=== PATIENT | female | born 1965 | race Caucasian/White ===

== ENCOUNTER 2019-03-21 15:10 | Inpatient (IN) | payer MEDICAID, SELFPAY ==
[~2019-03-21] VITALS: Ht 162.6 cm; Wt 106.3 kg
[2019-03-21] MEDS ORDERED: IV NORMAL SALINE 1000ML BAG 1,000 ML IV SCH ×2 (15:14→17:00)
[2019-03-21] MEDS ORDERED: fentaNYL PF VIAL 100 MCG/2 ML VIAL IV ONE (15:30)
[2019-03-21] MEDS ORDERED: ONDANSETRON PF 4 MG/2 ML VIAL. IV ONE (15:30)
[2019-03-21 15:39] LABS: BASO # 0.1 x10^3/uL (0.0-0.2); BASO % 1 % (0-3); EOS # 0.2 x10^3/uL (0.0-0.7); EOS % 3 % (0-3); HEMOGLOBIN 12.1 g/dL (12.0-15.5); LYMPH # 1.7 x10^3/uL (1.0-4.8); LYMPH % 23 % (24-48); MEAN CORPUSCULAR HEMOGLOBIN 29 pg (25-35); MEAN CORPUSCULAR HGB CONC 33 g/dL (31-37); MEAN CORPUSCULAR VOLUME 90 fL (79-100); MONO # 0.8 x10^3/uL (0.0-1.1); MONO % 11 % (0-9); NEUT # 4.6 x10^3uL (1.8-7.7); NEUT % 62 % (31-73); PLATELET COUNT 265 x10^3/uL (140-400); RED BLOOD COUNT 4.13 x10^6/uL (3.50-5.40); RED CELL DISTRIBUTION WIDTH 15.1 % (11.5-14.5); WHITE BLOOD COUNT 7.5 x10^3/uL (4.0-11.0)
[2019-03-21 15:50] LABS: CREATININE 1.1 mg/dL (0.6-1.0); GFR 52.4; POTASSIUM 4.2 mmol/L (3.5-5.1)
[2019-03-21 15:53] LABS: ALBUMIN 2.9 g/dL (3.4-5.0); ALBUMIN/GLOBULIN RATIO 0.7 (1.0-1.7); TOTAL BILIRUBIN 0.2 mg/dL (0.2-1.0); TOTAL PROTEIN 7.1 g/dL (6.4-8.2)
--- NOTE | 2019-03-21 16:31 | RAD ---
EXAM: Abdomen and pelvis CT without intravenous contrast. HISTORY: Right lower quadrant pain. TECHNIQUE: Computed tomographic images of the abdomen and pelvis were obtained without contrast. Multiplanar reformatting was performed. *One or more of the following individualized dose reduction techniques were utilized for this examination: 1. Automated exposure control. 2. Adjustment of the mA and/or kV according to patient size. 3. Use of iterative reconstruction technique. COMPARISON: None. FINDINGS: Evaluation of the lower thorax demonstrates a calcified granuloma within the posterior left lower lobe. There is no infiltrate or pleural effusion. There is hepatomegaly and hepatic steatosis. No focal hepatic lesion is seen. The gallbladder, pancreas, spleen and adrenal glands are unremarkable. The kidneys are unremarkable. The appendix is surgically absent. There are few sigmoid diverticula. There is slight fatty stranding surrounding a diverticulum within the proximal sigmoid colon, best seen on coronal images (series 4, images 34 through 36). This suggests slight diverticulitis. There are few nonspecific retroperitoneal and mesenteric lymph nodes. These are not pathologically enlarged. There is aortobiiliac atherosclerosis. There is no aneurysm. The urinary bladder, uterus and adnexal regions are unremarkable. There is no suspicious osseous lesion. IMPRESSION: 1. Minimal fatty stranding surrounding a diverticulum within the proximal sigmoid colon, suggesting slight diverticulitis. This is superimposed on distal colonic diverticulosis. 2. Hepatomegaly and hepatic steatosis. 3. Sigmoid diverticulosis. Electronically signed by: Lexy Gray MD (03/21/2019 4:28 PM) [facility]
[2019-03-21 16:58] LABS: BILIRUBIN,URINE NEGATIVE (NEG); CLARITY,URINE CLEAR; COLOR,URINE YELLOW; NITRITE,URINE NEGATIVE (NEG); PH,URINE 6.5; PROTEIN,URINE NEGATIVE (NEG-TRACE); UROBILINOGEN,URINE 0.2 mg/dL (0.2 mg/dL)
[2019-03-21 17:06] LABS: BACTERIA,URINE FEW /HPF (0-FEW); SQUAMOUS EPITHELIAL CELL,UR MOD /LPF; WBC,URINE 0 /HPF (0-4)
--- NOTE | 2019-03-21 17:27 | PHYS DOC ---
Past Medical History Past Medical History: Anemia, Bipolar, Diabetes-Type II, High Cholesterol, Hypertension, Hypothyroid, Schizophrenia, Other Additional Past Medical Histor: LOW/UP GI BLEED,BORDERLINE PERSONALITY,PTSD,ACUTE RESP FAIL Past Surgical History: Tubal ligation Alcohol Use: None Drug Use: None Adult General Chief Complaint Chief Complaint: ABDOMINAL PAIN HPI HPI Patient is a 53 year old female resident of [facility] who was in by EMS because of abdominal pain and possible appendicitis. Patient has extensive psychiatric problem and states she has had right lower abdominal pain for 4 days as a constant sharp pain with 7 or 8 episodes of nonbloody diarrhea and multiple episodes of vomiting. Patient rated her pain 10 over 10 and denies fever and chills, urinary symptoms, history of the same pain. Patient complaining of anorexia. intermediate reported that patient complaining of abdominal pain for 2 days and did not reports nausea and vomiting and diarrhea. Review of Systems Review of Systems Constitutional: Denies fever or chills [] Eyes: Denies change in visual acuity, redness, or eye pain [] HENT: Denies nasal congestion or sore throat [] Respiratory: Denies cough or shortness of breath [] Cardiovascular: No additional information not addressed in HPI [] GI: Reports abdominal pain, nausea, vomiting, diarrhea [] : Denies dysuria or hematuria [] Musculoskeletal: Denies back pain or joint pain [] Integument: Denies rash or skin lesions [] Neurologic: Denies headache, focal weakness or sensory changes [] Endocrine: Denies polyuria or polydipsia [] All other systems were reviewed and found to be within normal limits, except as documented in this note. Current Medications Current Medications Current Medications Medications (Trade) Dose Ordered Sig/Mickie Start Time Stop Time Status Last Admin Dose Admin Fentanyl Citrate (Fentanyl 2ml Vial) 50 mcg 1X ONCE 03/21/19 15:30 03/21/19 15:58 DC 03/21/19 16:04 50 MCG Ondansetron HCl (Zofran) 4 mg 1X ONCE 03/21/19 15:30 03/21/19 15:58 DC 03/21/19 16:05 4 MG Sodium Chloride 1,000 ml @ 1,000 mls/hr Q1H 03/21/19 15:14 03/21/19 16:13 DC 03/21/19 16:04 1,000 MLS/HR Allergies Allergies Allergies Coded Allergies Type Severity Reaction Last Updated Verified Penicillins Allergy Severe Anaphylaxis 03/21/19 Yes gabapentin Allergy Intermediate Hives 03/21/19 Yes tuberculin,PPD,multi-puncture Allergy Unknown 03/21/19 Yes Physical Exam Physical Exam Constitutional: Well nourished, moderate distress, non-toxic appearance, morbidly obese. [] HENT: Normocephalic, atraumatic, oropharynx moist. Eyes: PERRLA, EOMI, conjunctiva normal, no discharge. [] Neck: Normal range of motion, no tenderness, supple, no stridor. [] Cardiovascular:Heart rate regular rhythm, no murmur [] Lungs & Thorax: Bilateral breath sounds clear to auscultation [] Abdomen: Bowel sounds hyperactive, abdomen mildly distended with gas,, soft, tenderness and rebound tenderness in right lower quadrant, no masses, no pulsatile masses. [] Skin: Warm, dry, no erythema, no rash. [] Back: No tenderness, no CVA tenderness. [] Extremities: No tenderness, no cyanosis, no clubbing, ROM intact, no edema. [] Neurologic: Alert and oriented X 3, normal motor function, normal sensory function, no focal deficits noted. [] Psychologic: Affect anxious. Current Patient Data Vital Signs Vital Signs Date Time Temp Pulse Resp B/P (MAP) Pulse Ox O2 Delivery O2 Flow Rate FiO2 03/21/19 16:04 16 Room Air 03/21/19 15:10 98.4 81 117/68 (84) 95 98.4 Lab Values Laboratory Tests Test 03/21/19 15:32 White Blood Count 7.5 x10^3/uL (4.0-11.0) Red Blood Count 4.13 x10^6/uL (3.50-5.40) Hemoglobin 12.1 g/dL (12.0-15.5) Hematocrit 37.0 % (36.0-47.0) Mean Corpuscular Volume 90 fL (79-100) Mean Corpuscular Hemoglobin 29 pg (25-35) Mean Corpuscular Hemoglobin Concent 33 g/dL (31-37) Red Cell Distribution Width 15.1 % (11.5-14.5) H Platelet Count 265 x10^3/uL (140-400) Neutrophils (%) (Auto) 62 % (31-73) Lymphocytes (%) (Auto) 23 % (24-48) L Monocytes (%) (Auto) 11 % (0-9) H Eosinophils (%) (Auto) 3 % (0-3) Basophils (%) (Auto) 1 % (0-3) Neutrophils # (Auto) 4.6 x10^3uL (1.8-7.7) Lymphocytes # (Auto) 1.7 x10^3/uL (1.0-4.8) Monocytes # (Auto) 0.8 x10^3/uL (0.0-1.1) Eosinophils # (Auto) 0.2 x10^3/uL (0.0-0.7) Basophils # (Auto) 0.1 x10^3/uL (0.0-0.2) Sodium Level 141 mmol/L (136-145) Potassium Level 4.2 mmol/L (3.5-5.1) Chloride Level 104 mmol/L (98-107) Carbon Dioxide Level 29 mmol/L (21-32) Anion Gap 8 (6-14) Blood Urea Nitrogen 17 mg/dL (7-20) Creatinine 1.1 mg/dL (0.6-1.0) H Estimated GFR (Cockcroft-Gault) 52.4 BUN/Creatinine Ratio 15 (6-20) Glucose Level 161 mg/dL (70-99) H Calcium Level 9.0 mg/dL (8.5-10.1) Total Bilirubin 0.2 mg/dL (0.2-1.0) Aspartate Amino Transferase (AST) 21 U/L (15-37) Alanine Aminotransferase (ALT) 29 U/L (14-59) Alkaline Phosphatase 92 U/L (46-116) Total Protein 7.1 g/dL (6.4-8.2) Albumin 2.9 g/dL (3.4-5.0) L Albumin/Globulin Ratio 0.7 (1.0-1.7) L Lipase 205 U/L (73-393) Laboratory Tests 03/21/19 15:32 Laboratory Tests 03/21/19 15:32 EKG EKG [] Radiology/Procedures Radiology/Procedures [facility] [address] [place] [address] IMAGING REPORT Signed PATIENT: JOSE THOMPSON ACCOUNT: [id number] : 1965 LOCATION: ER AGE: 53 SEX: F EXAM STATUS: PRE ER ORD. PHYSICIAN: VIOLETTE SAXENA MD REASON: right lower quadrant pain PROCEDURE: CT ABDOMEN PELVIS WO CONTRAST EXAM: Abdomen and pelvis CT without intravenous contrast. HISTORY: Right lower quadrant pain. TECHNIQUE: Computed tomographic images of the abdomen and pelvis were obtained without contrast. Multiplanar reformatting was performed. *One or more of the following individualized dose reduction techniques were utilized for this examination: 1. Automated exposure control. 2. Adjustment of the mA and/or kV according to patient size. 3. Use of iterative reconstruction technique. COMPARISON: None. FINDINGS: Evaluation of the lower thorax demonstrates a calcified granuloma within the posterior left lower lobe. There is no infiltrate or pleural effusion. There is hepatomegaly and hepatic steatosis. No focal hepatic lesion is seen. The gallbladder, pancreas, spleen and adrenal glands are unremarkable. The kidneys are unremarkable. The appendix is surgically absent. There are few sigmoid diverticula. There is slight fatty stranding surrounding a diverticulum within the proximal sigmoid colon, best seen on coronal images (series 4, images 34 through 36). This suggests slight diverticulitis. There are few nonspecific retroperitoneal and mesenteric lymph nodes. These are not pathologically enlarged. There is aortobiiliac atherosclerosis. There is no aneurysm. The urinary bladder, uterus and adnexal regions are unremarkable. There is no suspicious osseous lesion. IMPRESSION: 1. Minimal fatty stranding surrounding a diverticulum within the proximal sigmoid colon, suggesting slight diverticulitis. This is superimposed on distal colonic diverticulosis. 2. Hepatomegaly and hepatic steatosis. 3. Sigmoid diverticulosis. Electronically signed by: Lexy Collins MD (03/21/2019 4:28 PM) [facility] DICTATED and SIGNED BY: LEXY COLLINS MD DATE: 03/21/19 1628 Course & Med Decision Making Course & Med Decision Making Pertinent Labs and Imaging studies reviewed. (See chart for details) Evaluation of patient in ER showed 53-year-old female patient with history of abdominal pain and nausea and vomiting for several days with right lower quadrant tenderness and rebound tenderness. Patient was afebrile and had stable vital signs in ER. Patient had unremarkable labs. CT of abdomen and pelvis showed right diverticulitis. IV Levaquin and flu she was given. Patient requiring admission for further evaluation and treatment. Discussed with Dr. Nichols who is in agreement with admission. Discussed findings and plan with patient and family, who acknowledge understanding and agreement. Dragon Disclaimer Dragon Disclaimer This electronic medical record was generated, in whole or in part, using a voice recognition dictation system. Departure Departure Impression: Primary Impression: Diverticulitis large intestine Additional Impressions: Abdominal pain Morbid obesity with BMI of 40.0-44.9, adult Diabetes mellitus History of bipolar disorder Disposition: ADMITTED INPATIENT (at 1640) Admitting Physician: Ashley Nichols (accepted admission at 1639) Condition: IMPROVED Referrals: ASHLEY NICHOLS MD (PCP) Problem Qualifiers Primary Impression: Diverticulitis large intestine Diverticulitis bleeding: without bleeding Diverticulitis complication: without perforation or abscess Qualified Codes: K57.32 - Diverticulitis of large intestine without perforation or abscess without bleeding Additional Impressions: Abdominal pain Abdominal location: right lower quadrant Qualified Codes: R10.31 - Right lower quadrant pain Diabetes mellitus Diabetes mellitus type: other specified (including MILAGRO) Diabetes mellitus halfway insulin use: unspecified halfway insulin use status Diabetes mellitus complication status: with unspecified complications Qualified Codes: E13.8 - Other specified diabetes mellitus with unspecified complications VIOLETTE SAXENA MD March 21, 2019 17:27
[2019-03-21 18:00] VITALS: BP 139/63
--- NOTE | 2019-03-21 18:00 | NUR ---
This patient arrived to the unit via gurney, was able to assist to the new bed, call light within reach, oriented to the room, this nurse will continue to monitor.
[2019-03-21 19:15] VITALS: BP 129/45
[2019-03-21] MEDS: fentaNYL PF VIAL 100 MCG/2 ML VIAL IV PRN (19:41)
[2019-03-21] MEDS ORDERED: DEXTROSE 50% 25 GM / 50ML DISP.SYRIN. IV PRN (20:00)
[2019-03-21] MEDS: ONDANSETRON PF 4 MG/2 ML VIAL. IV PRN (20:18)
[2019-03-21] MEDS: IV DEXTROSE 5 %-0.45 % NACL 1,000 ML IV SCH (20:20)
[2019-03-21 23:05] VITALS: BP 137/73
[2019-03-22 03:17] VITALS: BP 126/62
[2019-03-22] MEDS: fentaNYL PF VIAL 100 MCG/2 ML VIAL IV PRN ×4 (03:55→19:28)
--- NOTE | 2019-03-22 06:01 | NUR ---
Patient is a bad historian and mentally challenged. RN completed head to toe assessment and admission questions to the best of the patients ability.
[2019-03-22] MEDS: IV DEXTROSE 5 %-0.45 % NACL 1,000 ML IV SCH ×2 (06:35→17:07)
[2019-03-22 06:53] LABS: BASO % 1 % (0-3); EOS # 0.2 x10^3/uL (0.0-0.7); EOS % 2 % (0-3); HEMATOCRIT 38.4 % (36.0-47.0); HEMOGLOBIN 12.9 g/dL (12.0-15.5); LYMPH # 1.8 x10^3/uL (1.0-4.8); LYMPH % 27 % (24-48); MEAN CORPUSCULAR HEMOGLOBIN 30 pg (25-35); MEAN CORPUSCULAR HGB CONC 34 g/dL (31-37); MEAN CORPUSCULAR VOLUME 90 fL (79-100); MONO # 0.7 x10^3/uL (0.0-1.1); MONO % 10 % (0-9); NEUT # 4.1 x10^3uL (1.8-7.7); NEUT % 60 % (31-73); PLATELET COUNT 267 x10^3/uL (140-400); RED BLOOD COUNT 4.29 x10^6/uL (3.50-5.40); RED CELL DISTRIBUTION WIDTH 15.4 % (11.5-14.5); WHITE BLOOD COUNT 6.8 x10^3/uL (4.0-11.0)
[2019-03-22 07:00] VITALS: BP 150/74
[2019-03-22 07:03] LABS: CALCIUM 9.6 mg/dL (8.5-10.1); GFR 58.5; POTASSIUM 5.1 mmol/L (3.5-5.1)
[2019-03-22] MEDS: INSULIN LISPRO 300 UNITS/3 ML INSULN.PEN. SQ SCH ×3 (08:00→17:12)
[2019-03-22] MEDS ORDERED: MELA3TAB2 PO ×2 (08:17→08:21)
[2019-03-22] MEDS ORDERED: OLAN5TAB9 PO (08:23)
[2019-03-22] MEDS ORDERED: PRAZ1CAP2 PO (08:26)
[2019-03-22] MEDS ORDERED: INSU100I17 SQ (08:29)
[2019-03-22] MEDS ORDERED: ACET500T68 PO ×2 (08:36→08:40)
[2019-03-22] MEDS ORDERED: IPRA3AMP29 NEB (08:47)
[2019-03-22] MEDS ORDERED: ASPI-171 PO (08:54)
[2019-03-22] MEDS ORDERED: ATOR20TA PO (08:56)
[2019-03-22] MEDS ORDERED: CALC400T40 PO (09:00)
[2019-03-22] MEDS ORDERED: CITA20TA9 PO (09:02)
[2019-03-22] MEDS ORDERED: DOCU100C28 PO (09:11)
[2019-03-22] MEDS ORDERED: IBUP-1007 PO (09:14)
[2019-03-22] MEDS ORDERED: INSU100I13 SQ ×2 (09:17→09:23)
[2019-03-22] MEDS: ONDANSETRON PF 4 MG/2 ML VIAL. IV PRN ×2 (09:20→23:23)
[2019-03-22] MEDS ORDERED: LEVO112T4 PO (09:25)
[2019-03-22] MEDS ORDERED: LISI-334 PO (09:27)
--- NOTE | 2019-03-22 09:28 | HP ---
ADMIT DATE: 03/21/2019 HISTORY OF PRESENT ILLNESS: The patient is a 53-year-old female patient whom I have seen yesterday at [facility] in [place]. She was complaining of recurrent bouts of nausea, vomiting and abdominal pain, mostly in the right lower quadrant, and therefore, the patient was transferred to [facility] for further evaluation for possible acute appendicitis. Her lab work showed a normal white cell count 7500, and her CT scan of the abdomen and pelvis showed that the appendix is surgically absent and there are few sigmoid diverticula. There is slight fatty stranding surrounding a diverticulum within the proximal sigmoid colon, best seen in one of the coronal images suggesting slight diverticulitis, there are few nonspecific retroperitoneal and mesenteric lymph nodes, and these are not pathologically enlarged. There is no aneurysm in the urinary bladder or uterus. Adnexa region unremarkable. The patient was admitted with acute diverticulitis, was started on IV fluid, IV antibiotic, pain management and kept n.p.o. PAST MEDICAL HISTORY: Significant for type 2 diabetes, hypertension, hypothyroidism, and hyperlipidemia. She has history of lower GI bleed and blood loss anemia, tobacco abuse, borderline personality, schizophrenia, bipolar disorder, and posttraumatic stress disorder. PAST SURGICAL HISTORY: Significant for multiple C-sections. Apparently, also her appendix was removed. ALLERGIES: She is allergic to GABAPENTIN, APLISOL AND PENICILLIN. MEDICATIONS: We have entered the ____ to her medications. FAMILY HISTORY: Unremarkable, has 1 older sister who is her DPOA. SOCIAL HISTORY: She used to live alone. She is on disability. She smokes 1 pack a day, does not drink alcohol or use any recreational drugs. She has, according to her, 4 sons. REVIEW OF SYSTEMS: The patient denied any blurring of vision, cataract, glaucoma or macular degeneration. Denied any earache, tinnitus or sensorineural deafness. Denied any nosebleeds, stuffy nose or postnasal drip. Denied any sore throat, sore tongue, toothache, hoarseness of voice or difficulty swallowing. Did complain of recurrent bouts of nausea, vomiting as well as abdominal pain. Denied any diarrhea or constipation. She denied any hematemesis, melena or hematochezia. Denied any dysuria, frequency or hematuria. Denied any chest pain, shortness of breath, orthopnea, paroxysmal nocturnal dyspnea. PHYSICAL EXAMINATION: GENERAL: On arrival, she looked well and was clearly in no apparent respiratory distress, somewhat pale, but no jaundice, cyanosis, or thyromegaly. No jugular venous distension. No limb edema. VITAL SIGNS: Her heart rate was 81, blood pressure was 117/68, temperature was 98.4, respiratory rate was 16, and oxygen saturation was 95% on room air. HEAD, EYES, EARS, NOSE AND THROAT: Normocephalic, atraumatic. NECK: Supple. HEART: Showed normal first and second sounds. No gallop, rub or murmur. CHEST: Clear to auscultation. No crepitation or rhonchi. ABDOMEN: Distended, soft with tenderness, mostly in the right lower quadrant. I could not appreciate any guarding or rigidity. No organomegaly. Her hernial orifice is intact. Bowel sounds normal. NEUROLOGIC: She is awake, alert, responding appropriately. Cranial nerves are intact. EXTREMITIES: She moves extremities without difficulty. She ambulates without assistance or assistive devices. LABORATORY DATA: On arrival showed a white cell count 7500, hemoglobin 12, hematocrit 37, MCV 90 and platelet count 265,000. Her chemistry showed a serum sodium 141, potassium 4.2, chloride 104, bicarbonate 29, anion gap 8, and BUN 17. Creatinine was 1.1. Estimated GFR was 52 mL per minute. Her glucose 161, her calcium was 9. Total bilirubin, AST, ALT, alkaline phosphatase were normal. Total protein is 7.1, albumin 2.9. Serum lipase was 205. Her urinalysis showed the urine was yellow, clear with a pH of 6.5, specific gravity of 1.010. The urine was negative for protein, glucose, ketones, blood, nitrites and leukocyte esterase. There are 3-5 rbc's, no wbc's, and very few bacteria. CT scan of the abdomen and pelvis showed that the lower thorax demonstrated a calcified granuloma within the posterior left lower lobe. There is no infiltrate or pleural effusion. There is hepatomegaly and hepatic steatosis. No focal hepatic lesions are seen. The gallbladder, pancreas, spleen and adrenal glands are unremarkable. The kidneys are unremarkable. The appendix is surgically absent. There are few sigmoid diverticula. There is slight fatty stranding surrounding a diverticulum within the proximal sigmoid colon, this is a slight diverticulitis. There are few nonspecific retroperitoneal and mesenteric lymph nodes. These are not pathologically enlarged. There is aortoiliac atherosclerosis. There is no aneurysm. The urinary bladder, uterus and adnexal regions are unremarkable. There is no suspicious osseous lesion. IMPRESSION: In summary, this is a 53-year-old was admitted with recurrent bouts of nausea, vomiting and right lower quadrant pain, and apparently the appendix is surgically absent. She has diverticulitis for which she was started on IV Flagyl and Levaquin. She has a multitude of other medical problems including type 2 diabetes, hypertension, hypothyroidism, and hyperlipidemia. She has history of lower GI bleed as well as blood loss anemia. PLAN: My plan is to continue with IV fluid and IV antibiotic. I will monitor her blood sugar and adjust her insulin as needed. We will monitor her response and if she has no further episodes of nausea or vomiting, we will start her on clear liquid diet and advance her diet as needed. ADDI ABREU MD DR: EDU/sundar JOB#: [id number] / [id number]
[2019-03-22] MEDS ORDERED: MAGN400T3 PO (09:30)
[2019-03-22] MEDS ORDERED: MENT5LOZ MM (09:31)
[2019-03-22] MEDS ORDERED: METF10007 PO (09:35)
[2019-03-22] MEDS ORDERED: PANT20TA2 PO (09:37)
[2019-03-22] MEDS ORDERED: SITA100T PO (09:38)
[2019-03-22] MEDS ORDERED: DIVA500T17 PO ×2 (09:53→09:56)
[2019-03-22] MEDS ORDERED: ZIPR80CA2 PO ×2 (10:00→10:01)
--- NOTE | 2019-03-22 10:53 | NUR ---
DOUG following for discharge planning. Discussed with RN, pt is from [facility] in [facility]. Pt currently on IV abx, significant mental health hx. Eventually pt diet will be advanced. SW to fax updates to [facility] when more notes are available. DOUG will continue to follow.
[2019-03-22 11:00] VITALS: BP 136/79
--- NOTE | 2019-03-22 12:27 | PDOC2 ---
GI CONSULT Reason For Consult: RLQ pain with absent appendix HPI: HPI: 53 y/o female who reports 3 days of RLQ pain that is constant and sharp. "Eating takes the edge off." Reports vomiting after drinking pop this morning, denies diarrhea and constipation. Denies reflux/heartburn, dysphagia, chronic n/v and abd pain. Might have seen blood in emesis 3 days ago ("red and black") but not since. No melena. Describes streaks of blood on toilet tissue - "they gave me a cream for hemorrhoids." Some question of h/o GI bleeds - she denies to me and denies previous EGD or colonoscopy. Denies GB, liver, pancreas, and PUD history. No NSAIDs. Reviewed w/ RN - h/o psych issues, poor historian. Mostly dry-heaving this morning. No diarrhea. PMH: PMH: HTN, DM, HLD, schizophrenia, bipolar, PTSD tubal ligation (denies and appendectomy) FH: Family History: No pertinent hx Social History: Smoke: No ALCOHOL: none Drugs: None ROS: GEN: Denies fevers, chills, sweats HEENT: Denies blurred vision, sore throat CV: Denies chest pain RESP: Denies shortness of air, cough GI: Per HPI : Denies hematuria, dysuria ENDO: Denies weight changes NEURO: Denies confusion, dizziness MSK: Denies weakness, joint pain/swelling SKIN: Denies jaundice, pruritus Vitals: Vitals: Vital Signs Date Time Temp Pulse Resp B/P (MAP) Pulse Ox O2 Delivery O2 Flow Rate FiO2 03/22/19 11:00 97.5 61 18 136/79 (98) 90 Nasal Cannula 2.0 97.5 Labs: Labs: Laboratory Tests Test 03/21/19 15:32 03/21/19 16:49 03/21/19 20:05 03/22/19 00:40 White Blood Count 7.5 x10^3/uL (4.0-11.0) Red Blood Count 4.13 x10^6/uL (3.50-5.40) Hemoglobin 12.1 g/dL (12.0-15.5) Hematocrit 37.0 % (36.0-47.0) Mean Corpuscular Volume 90 fL (79-100) Mean Corpuscular Hemoglobin 29 pg (25-35) Mean Corpuscular Hemoglobin Concent 33 g/dL (31-37) Red Cell Distribution Width 15.1 % (11.5-14.5) Platelet Count 265 x10^3/uL (140-400) Neutrophils (%) (Auto) 62 % (31-73) Lymphocytes (%) (Auto) 23 % (24-48) Monocytes (%) (Auto) 11 % (0-9) Eosinophils (%) (Auto) 3 % (0-3) Basophils (%) (Auto) 1 % (0-3) Neutrophils # (Auto) 4.6 x10^3uL (1.8-7.7) Lymphocytes # (Auto) 1.7 x10^3/uL (1.0-4.8) Monocytes # (Auto) 0.8 x10^3/uL (0.0-1.1) Eosinophils # (Auto) 0.2 x10^3/uL (0.0-0.7) Basophils # (Auto) 0.1 x10^3/uL (0.0-0.2) Sodium Level 141 mmol/L (136-145) Potassium Level 4.2 mmol/L (3.5-5.1) Chloride Level 104 mmol/L (98-107) Carbon Dioxide Level 29 mmol/L (21-32) Anion Gap 8 (6-14) Blood Urea Nitrogen 17 mg/dL (7-20) Creatinine 1.1 mg/dL (0.6-1.0) Estimated GFR (Cockcroft-Gault) 52.4 BUN/Creatinine Ratio 15 (6-20) Glucose Level 161 mg/dL (70-99) Calcium Level 9.0 mg/dL (8.5-10.1) Total Bilirubin 0.2 mg/dL (0.2-1.0) Aspartate Amino Transf (AST/SGOT) 21 U/L (15-37) Alanine Aminotransferase (ALT/SGPT) 29 U/L (14-59) Alkaline Phosphatase 92 U/L (46-116) Total Protein 7.1 g/dL (6.4-8.2) Albumin 2.9 g/dL (3.4-5.0) Albumin/Globulin Ratio 0.7 (1.0-1.7) Lipase 205 U/L (73-393) Urine Collection Type Void Urine Color Yellow Urine Clarity Clear Urine pH 6.5 Urine Specific [place] 1.010 Urine Protein Negative mg/dL (NEG-TRACE) Urine Glucose (UA) Negative mg/dL (NEG) Urine Ketones (Stick) Negative mg/dL (NEG) Urine Blood Negative (NEG) Urine Nitrite Negative (NEG) Urine Bilirubin Negative (NEG) Urine Urobilinogen Dipstick 0.2 mg/dL (0.2 mg/dL) Urine Leukocyte Esterase Negative (NEG) Urine RBC 3-5 /HPF (0-2) Urine WBC 0 /HPF (0-4) Urine Squamous Epithelial Cells Mod /LPF Urine Bacteria Few /HPF (0-FEW) Glucose (Fingerstick) 131 mg/dL (70-99) 160 mg/dL (70-99) Test 03/22/19 05:15 03/22/19 06:15 03/22/19 08:45 03/22/19 11:23 White Blood Count 6.8 x10^3/uL (4.0-11.0) Red Blood Count 4.29 x10^6/uL (3.50-5.40) Hemoglobin 12.9 g/dL (12.0-15.5) Hematocrit 38.4 % (36.0-47.0) Mean Corpuscular Volume 90 fL (79-100) Mean Corpuscular Hemoglobin 30 pg (25-35) Mean Corpuscular Hemoglobin Concent 34 g/dL (31-37) Red Cell Distribution Width 15.4 % (11.5-14.5) Platelet Count 267 x10^3/uL (140-400) Neutrophils (%) (Auto) 60 % (31-73) Lymphocytes (%) (Auto) 27 % (24-48) Monocytes (%) (Auto) 10 % (0-9) Eosinophils (%) (Auto) 2 % (0-3) Basophils (%) (Auto) 1 % (0-3) Neutrophils # (Auto) 4.1 x10^3uL (1.8-7.7) Lymphocytes # (Auto) 1.8 x10^3/uL (1.0-4.8) Monocytes # (Auto) 0.7 x10^3/uL (0.0-1.1) Eosinophils # (Auto) 0.2 x10^3/uL (0.0-0.7) Basophils # (Auto) 0.0 x10^3/uL (0.0-0.2) Sodium Level 142 mmol/L (136-145) Potassium Level 5.1 mmol/L (3.5-5.1) Chloride Level 107 mmol/L (98-107) Carbon Dioxide Level 28 mmol/L (21-32) Anion Gap 7 (6-14) Blood Urea Nitrogen 12 mg/dL (7-20) Creatinine 1.0 mg/dL (0.6-1.0) Estimated GFR (Cockcroft-Gault) 58.5 Glucose Level 166 mg/dL (70-99) Calcium Level 9.6 mg/dL (8.5-10.1) Glucose (Fingerstick) 168 mg/dL (70-99) 158 mg/dL (70-99) 194 mg/dL (70-99) Allergies: Coded Allergies: Penicillins (Verified Allergy, Severe, Anaphylaxis, 03/21/19) gabapentin (Verified Allergy, Intermediate, Hives, 03/21/19) tuberculin,PPD,multi-puncture (Verified Allergy, Unknown, 03/21/19) Medications: Current Medications Medications (Trade) Dose Ordered Sig/Mickie Route PRN Reason Start Time Stop Time Status Last Admin Dose Admin Sodium Chloride 1,000 ml @ 1,000 mls/hr Q1H IV 03/21/19 15:14 03/21/19 16:13 DC 03/21/19 16:04 Ondansetron HCl (Zofran) 4 mg 1X ONCE IV 03/21/19 15:30 03/21/19 15:58 DC 03/21/19 16:05 Fentanyl Citrate (Fentanyl 2ml Vial) 50 mcg 1X ONCE IV 03/21/19 15:30 03/21/19 15:58 DC 03/21/19 16:04 Sodium Chloride 1,000 ml @ 150 mls/hr Q6H40M IV 03/21/19 17:00 03/21/19 19:49 DC 03/21/19 17:01 Metronidazole 100 ml @ 100 mls/hr 1X ONCE IV 03/21/19 16:45 03/21/19 17:45 DC 03/21/19 17:00 Levofloxacin/ Dextrose 150 ml @ 100 mls/hr 1X ONCE IV 03/21/19 16:45 5/5/19 18:14 DC 03/21/19 17:00 Fentanyl Citrate (Fentanyl 2ml Vial) 50 mcg PRN Q3HRS PRN IV PAIN 03/21/19 19:45 03/22/19 09:20 Dextrose/Sodium Chloride 1,000 ml @ 100 mls/hr Q10H IV 03/21/19 19:45 03/22/19 06:35 Ondansetron HCl (Zofran) 4 mg PRN Q4HRS PRN IV NAUSEA/VOMITING 03/21/19 20:00 03/22/19 09:20 Metronidazole 100 ml @ 100 mls/hr Q8HRS IV 03/21/19 22:00 03/22/19 06:34 Imaging: Imaging: CT A/P w/o contrast 03/21/19 IMPRESSION: 1. Minimal fatty stranding surrounding a diverticulum within the proximal sigmoid colon, suggesting slight diverticulitis. This is superimposed on distal colonic diverticulosis. 2. Hepatomegaly and hepatic steatosis. 3. Sigmoid diverticulosis. PE: GEN: NAD - was asleep HEENT: kept eyes closed for our conversation LUNGS: CTAB HEART: RRR ABD: large/round, soft, RLQ discomfort to suprapubic region, less in LLQ - does seem a bit uncomfortable all over EXTREMITY: No edema SKIN: No rashes, no jaundice NEURO/PSYCH: A & O 3 A/P: A/P: RLQ pain, n/v Abnormal CT - minimal fatty stranding surrounding a diverticulum within the proximal sigmoid colon CRC screen - none "H/o GI bleeds" - seems to describe hemorrhoid-type bleeding Diverticulosis Hepatomegaly, hepatic steatosis -- Somewhat difficult historian. Continue treatment for diverticulitis for now. 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 JOS FRAUSTO March 22, 2019 12:27
[2019-03-22] MEDS: FAMOTIDINE 20 MG/2 ML VIAL IVP SCH ×2 (14:31→20:49)
[2019-03-22 15:00] VITALS: BP 112/67
--- NOTE | 2019-03-22 16:26 | NUR ---
Dr. Nichols notified of pt's c/o itching and small bumps to bilat knees, orders received.
[2019-03-22] MEDS ORDERED: diphenhydrAMINE HCL 25 MG CAPSULE PO PRN (16:30)
[2019-03-22] MEDS: HYDROCORTISONE 1% TOPICAL OINTMENT 30GM TUBE. TP PRN (17:07)
[2019-03-22 19:00] VITALS: BP 135/73
[2019-03-22 23:00] VITALS: BP 131/70
--- NOTE | 2019-03-22 23:23 | PN ---
DATE: 03/22/2019 SUBJECTIVE: The patient is resting, slightly propped up in bed, in no apparent distress. She is awake, complaining of headache, has had no further episodes of nausea or vomiting, no diarrhea. Did complain of abdominal pain for which she received IV fentanyl. PHYSICAL EXAMINATION: GENERAL: When I examined her this morning, she looked well and was clearly in no apparent respiratory distress. Slightly pale, but not jaundiced or cyanosed from thyromegaly. No jugular venous distention. No limb edema. VITAL SIGNS: Her heart rate was 80, blood pressure was 139/63, temperature 98.3, respiratory rate was 18 and oxygen saturation was 95% on 2 liters oxygen. HEAD, EYES, EARS, NOSE AND THROAT: Showed normocephalic, atraumatic. NECK: Supple. HEART: Showed normal first and second heart sounds with no gallop, rub or murmur. CHEST: Clear to auscultation. No crepitation or rhonchi. ABDOMEN: Distended, soft. Tenderness mostly in the right lower quadrant. No guarding or rigidity. No organomegaly. Hernial orifices intact. Bowel sounds normal. NEUROLOGIC: She is awake, alert, responding appropriately. All cranial nerves intact. She moves extremities without difficulty. She ambulates without assistance or assistive devices. Her intake over the last 24 hours was 1000, output was 900. LABORATORY DATA: Her lab work this morning showed a white cell count is down to 6800; hemoglobin 12.9; hematocrit 38; MCV 90; platelet count 267,000. Her chemistry showed a serum sodium 142, potassium 5.1, chloride 107, bicarbonate 28, anion gap of 7, BUN 12, creatinine 1, estimated GFR was 59 mL per minute. Her glucose 166, calcium was 9.6. ASSESSMENT: Recurrent bouts of nausea and abdominal pain, mostly in the right lower quadrant. CT scan showed that her appendix was surgically absent; however, she was diagnosed with sigmoid diverticulitis. The patient continued to have pain, mostly in the right lower quadrant. She has a history of lower gastrointestinal bleed before. She has also multiple retroperitoneal lymphadenopathy. She apparently has had no further episodes of nausea or vomiting last night. PLAN: My plan is to start her on a clear liquid diet and will resume all her medication. Monitor her lab work closely and if she continued to have pain in her right lower quadrant, we might have to ask the surgical team and/or gastroenterology. ADDI ABREU MD DR: EDU/sundar JOB#: [id number] / [id number]
[2019-03-23] MEDS: fentaNYL PF VIAL 100 MCG/2 ML VIAL IV PRN ×2 (01:12→05:18)
[2019-03-23 03:00] VITALS: BP 131/89
[2019-03-23] MEDS: IV DEXTROSE 5 %-0.45 % NACL 1,000 ML IV SCH ×2 (04:20→12:21)
[2019-03-23 07:00] VITALS: BP 151/80
[2019-03-23 07:52] LABS: RED BLOOD COUNT 4.11 x10^6/uL (3.50-5.40); RED CELL DISTRIBUTION WIDTH 15.4 % (11.5-14.5); WHITE BLOOD COUNT 7.8 x10^3/uL (4.0-11.0)
[2019-03-23 08:23] LABS: ALBUMIN/GLOBULIN RATIO 0.6 (1.0-1.7); C-REACTIVE PROTEIN 22.4 mg/L (0-3.3); CALCIUM 9.3 mg/dL (8.5-10.1); GFR 58.5; POTASSIUM 4.6 mmol/L (3.5-5.1); TOTAL BILIRUBIN 0.3 mg/dL (0.2-1.0); TOTAL PROTEIN 7.8 g/dL (6.4-8.2)
[2019-03-23] MEDS: FAMOTIDINE 20 MG/2 ML VIAL IVP SCH ×2 (08:26→20:03)
[2019-03-23] MEDS: INSULIN LISPRO 300 UNITS/3 ML INSULN.PEN. SQ SCH ×5 (08:29→17:39)
[2019-03-23] MEDS ORDERED: IPRATRPIUM/ALBUTEROL 0.5/2.5MG 3 ML NEBU. NEB PRN (09:15)
[2019-03-23] MEDS ORDERED: DOCUSATE SODIUM 100 MG CAPSULE. PO PRN (09:15)
[2019-03-23] MEDS ORDERED: CALCIUM CARBONATE 500 MG TAB.CHEW PO PRN (09:30)
[2019-03-23] MEDS ORDERED: DIVALPROEX EXTENDED RELEASE 500 MG TAB.ER.24H. PO SCH ×2 (10:00→21:00)
[2019-03-23] MEDS: CITALOPRAM 20 MG TABLET. PO SCH (10:06)
[2019-03-23] MEDS: LISINOPRIL 20 MG TABLET PO SCH (10:06)
[2019-03-23] MEDS: ACETAMINOPHEN 325 MG TABLET. PO PRN (10:06)
[2019-03-23] MEDS: LEVOTHYROXINE 112 MCG TABLET PO SCH (10:06)
[2019-03-23] MEDS ORDERED: BENZOCAINE/MENTHOL LOZENGE. PO PRN (10:15)
[2019-03-23 11:00] VITALS: BP 145/72
[2019-03-23] MEDS ORDERED: DIVA250T PO (11:20)
[2019-03-23] MEDS ORDERED: INSU100I16 SQ (11:28)
[2019-03-23] MEDS ORDERED: ESTR1PAT27 TD (11:28)
[2019-03-23] MEDS ORDERED: ZIPRASIDONE 20 MG CAPSULE PO SCH ×2 (11:30→21:00)
[2019-03-23] MEDS ORDERED: DIVALPROEX DELAYED RELEASE 250 MG TABLET.DR. PO SCH (12:00)
--- NOTE | 2019-03-23 12:14 | PDOC ---
G I PROGRESS NOTE Subjective Sleepy, arousable. Seems to indicate less pain. Physical Exam Lungs clear. RRR Abdomen soft, nil tenderness. Review of Relevant I have reviewed the following items latrice (where applicable) has been applied. Labs Laboratory Tests Test 03/21/19 15:32 03/21/19 16:49 03/21/19 20:05 03/22/19 00:40 White Blood Count 7.5 x10^3/uL (4.0-11.0) Red Blood Count 4.13 x10^6/uL (3.50-5.40) Hemoglobin 12.1 g/dL (12.0-15.5) Hematocrit 37.0 % (36.0-47.0) Mean Corpuscular Volume 90 fL (79-100) Mean Corpuscular Hemoglobin 29 pg (25-35) Mean Corpuscular Hemoglobin Concent 33 g/dL (31-37) Red Cell Distribution Width 15.1 % (11.5-14.5) Platelet Count 265 x10^3/uL (140-400) Neutrophils (%) (Auto) 62 % (31-73) Lymphocytes (%) (Auto) 23 % (24-48) Monocytes (%) (Auto) 11 % (0-9) Eosinophils (%) (Auto) 3 % (0-3) Basophils (%) (Auto) 1 % (0-3) Neutrophils # (Auto) 4.6 x10^3uL (1.8-7.7) Lymphocytes # (Auto) 1.7 x10^3/uL (1.0-4.8) Monocytes # (Auto) 0.8 x10^3/uL (0.0-1.1) Eosinophils # (Auto) 0.2 x10^3/uL (0.0-0.7) Basophils # (Auto) 0.1 x10^3/uL (0.0-0.2) Sodium Level 141 mmol/L (136-145) Potassium Level 4.2 mmol/L (3.5-5.1) Chloride Level 104 mmol/L (98-107) Carbon Dioxide Level 29 mmol/L (21-32) Anion Gap 8 (6-14) Blood Urea Nitrogen 17 mg/dL (7-20) Creatinine 1.1 mg/dL (0.6-1.0) Estimated GFR (Cockcroft-Gault) 52.4 BUN/Creatinine Ratio 15 (6-20) Glucose Level 161 mg/dL (70-99) Calcium Level 9.0 mg/dL (8.5-10.1) Total Bilirubin 0.2 mg/dL (0.2-1.0) Aspartate Amino Transf (AST/SGOT) 21 U/L (15-37) Alanine Aminotransferase (ALT/SGPT) 29 U/L (14-59) Alkaline Phosphatase 92 U/L (46-116) Total Protein 7.1 g/dL (6.4-8.2) Albumin 2.9 g/dL (3.4-5.0) Albumin/Globulin Ratio 0.7 (1.0-1.7) Lipase 205 U/L (73-393) Urine Collection Type Void Urine Color Yellow Urine Clarity Clear Urine pH 6.5 Urine Specific [place] 1.010 Urine Protein Negative mg/dL (NEG-TRACE) Urine Glucose (UA) Negative mg/dL (NEG) Urine Ketones (Stick) Negative mg/dL (NEG) Urine Blood Negative (NEG) Urine Nitrite Negative (NEG) Urine Bilirubin Negative (NEG) Urine Urobilinogen Dipstick 0.2 mg/dL (0.2 mg/dL) Urine Leukocyte Esterase Negative (NEG) Urine RBC 3-5 /HPF (0-2) Urine WBC 0 /HPF (0-4) Urine Squamous Epithelial Cells Mod /LPF Urine Bacteria Few /HPF (0-FEW) Glucose (Fingerstick) 131 mg/dL (70-99) 160 mg/dL (70-99) Test 03/22/19 05:15 03/22/19 06:15 03/22/19 08:45 03/22/19 11:23 White Blood Count 6.8 x10^3/uL (4.0-11.0) Red Blood Count 4.29 x10^6/uL (3.50-5.40) Hemoglobin 12.9 g/dL (12.0-15.5) Hematocrit 38.4 % (36.0-47.0) Mean Corpuscular Volume 90 fL (79-100) Mean Corpuscular Hemoglobin 30 pg (25-35) Mean Corpuscular Hemoglobin Concent 34 g/dL (31-37) Red Cell Distribution Width 15.4 % (11.5-14.5) Platelet Count 267 x10^3/uL (140-400) Neutrophils (%) (Auto) 60 % (31-73) Lymphocytes (%) (Auto) 27 % (24-48) Monocytes (%) (Auto) 10 % (0-9) Eosinophils (%) (Auto) 2 % (0-3) Basophils (%) (Auto) 1 % (0-3) Neutrophils # (Auto) 4.1 x10^3uL (1.8-7.7) Lymphocytes # (Auto) 1.8 x10^3/uL (1.0-4.8) Monocytes # (Auto) 0.7 x10^3/uL (0.0-1.1) Eosinophils # (Auto) 0.2 x10^3/uL (0.0-0.7) Basophils # (Auto) 0.0 x10^3/uL (0.0-0.2) Sodium Level 142 mmol/L (136-145) Potassium Level 5.1 mmol/L (3.5-5.1) Chloride Level 107 mmol/L (98-107) Carbon Dioxide Level 28 mmol/L (21-32) Anion Gap 7 (6-14) Blood Urea Nitrogen 12 mg/dL (7-20) Creatinine 1.0 mg/dL (0.6-1.0) Estimated GFR (Cockcroft-Gault) 58.5 Glucose Level 166 mg/dL (70-99) Calcium Level 9.6 mg/dL (8.5-10.1) Glucose (Fingerstick) 168 mg/dL (70-99) 158 mg/dL (70-99) 194 mg/dL (70-99) Test 03/22/19 16:21 03/22/19 21:13 03/23/19 06:16 03/23/19 08:10 Glucose (Fingerstick) 177 mg/dL (70-99) 200 mg/dL (70-99) 182 mg/dL (70-99) White Blood Count 7.8 x10^3/uL (4.0-11.0) Red Blood Count 4.11 x10^6/uL (3.50-5.40) Hemoglobin 12.0 g/dL (12.0-15.5) Hematocrit 37.0 % (36.0-47.0) Mean Corpuscular Volume 90 fL (79-100) Mean Corpuscular Hemoglobin 29 pg (25-35) Mean Corpuscular Hemoglobin Concent 33 g/dL (31-37) Red Cell Distribution Width 15.4 % (11.5-14.5) Platelet Count 247 x10^3/uL (140-400) Sodium Level 138 mmol/L (136-145) Potassium Level 4.6 mmol/L (3.5-5.1) Chloride Level 104 mmol/L (98-107) Carbon Dioxide Level 28 mmol/L (21-32) Anion Gap 6 (6-14) Blood Urea Nitrogen 11 mg/dL (7-20) Creatinine 1.0 mg/dL (0.6-1.0) Estimated GFR (Cockcroft-Gault) 58.5 BUN/Creatinine Ratio 11 (6-20) Glucose Level 183 mg/dL (70-99) Calcium Level 9.3 mg/dL (8.5-10.1) Total Bilirubin 0.3 mg/dL (0.2-1.0) Aspartate Amino Transf (AST/SGOT) 36 U/L (15-37) Alanine Aminotransferase (ALT/SGPT) 42 U/L (14-59) Alkaline Phosphatase 91 U/L (46-116) Lactate Dehydrogenase 233 U/L (81-234) C-Reactive Protein, Quantitative 22.4 mg/L (0-3.3) Total Protein 7.8 g/dL (6.4-8.2) Albumin 3.0 g/dL (3.4-5.0) Albumin/Globulin Ratio 0.6 (1.0-1.7) Test 03/23/19 11:30 Glucose (Fingerstick) 179 mg/dL (70-99) Laboratory Tests Test 03/22/19 16:21 03/22/19 21:13 03/23/19 06:16 03/23/19 08:10 Glucose (Fingerstick) 177 mg/dL (70-99) 200 mg/dL (70-99) 182 mg/dL (70-99) White Blood Count 7.8 x10^3/uL (4.0-11.0) Red Blood Count 4.11 x10^6/uL (3.50-5.40) Hemoglobin 12.0 g/dL (12.0-15.5) Hematocrit 37.0 % (36.0-47.0) Mean Corpuscular Volume 90 fL (79-100) Mean Corpuscular Hemoglobin 29 pg (25-35) Mean Corpuscular Hemoglobin Concent 33 g/dL (31-37) Red Cell Distribution Width 15.4 % (11.5-14.5) Platelet Count 247 x10^3/uL (140-400) Sodium Level 138 mmol/L (136-145) Potassium Level 4.6 mmol/L (3.5-5.1) Chloride Level 104 mmol/L (98-107) Carbon Dioxide Level 28 mmol/L (21-32) Anion Gap 6 (6-14) Blood Urea Nitrogen 11 mg/dL (7-20) Creatinine 1.0 mg/dL (0.6-1.0) Estimated GFR (Cockcroft-Gault) 58.5 BUN/Creatinine Ratio 11 (6-20) Glucose Level 183 mg/dL (70-99) Calcium Level 9.3 mg/dL (8.5-10.1) Total Bilirubin 0.3 mg/dL (0.2-1.0) Aspartate Amino Transf (AST/SGOT) 36 U/L (15-37) Alanine Aminotransferase (ALT/SGPT) 42 U/L (14-59) Alkaline Phosphatase 91 U/L (46-116) Lactate Dehydrogenase 233 U/L (81-234) C-Reactive Protein, Quantitative 22.4 mg/L (0-3.3) Total Protein 7.8 g/dL (6.4-8.2) Albumin 3.0 g/dL (3.4-5.0) Albumin/Globulin Ratio 0.6 (1.0-1.7) Test 03/23/19 11:30 Glucose (Fingerstick) 179 mg/dL (70-99) Vitals/I & O Vital Sign - Last 24 Hours 03/22/19 03/22/19 03/22/19 03/22/19 14:35 15:00 19:00 19:15 Temp 98.0 98.0 98.0 98.0 Pulse 67 63 Resp 20 20 B/P (MAP) 112/67 (82) 135/73 (93) Pulse Ox 92 91 O2 Delivery Room Air Room Air Room Air Room Air 03/22/19 03/22/19 03/23/19 03/23/19 19:28 23:00 01:12 03:00 Temp 98.4 98.2 98.4 98.2 Pulse 72 63 Resp 20 20 B/P (MAP) 131/70 (90) 131/89 (103) Pulse Ox 92 91 O2 Delivery Room Air Room Air Room Air Room Air 03/23/19 03/23/19 03/23/19 03/23/19 05:18 05:48 07:00 07:15 Temp 98.5 98.5 Pulse 70 Resp 18 B/P (MAP) 151/80 (103) Pulse Ox 90 O2 Delivery Room Air Room Air Room Air Room Air 03/23/19 03/23/19 10:06 11:00 Temp 98.2 98.2 Pulse 70 68 Resp 18 B/P (MAP) 151/80 145/72 (96) Pulse Ox 91 O2 Delivery Room Air Intake and Output 03/22/19 03/22/19 03/23/19 15:00 23:00 07:00 Intake Total 520 ml 480 ml Output Total 725 ml 1 ml Balance -725 ml 519 ml 480 ml Problem List Problems Medical Problems: (1) Abdominal pain Status: Acute (2) Diabetes mellitus Status: Acute (3) Diverticulitis large intestine Status: Acute (4) History of bipolar disorder Status: Acute (5) Morbid obesity with BMI of 40.0-44.9, adult Status: Acute Assessment Diverticulitis, better. Plan of Care Note OK to try some po. Advance as tolerated. If continues improvement, po antibiotics and consider home. Would merit outpatient colonoscopy at some point. LATOSHA LEDEZMA MD March 23, 2019 12:14
[2019-03-23] MEDS: LINAGLIPTIN 5 MG TABLET PO SCH (12:16)
[2019-03-23] MEDS: MAGNESIUM OXIDE 400 MG TABLET PO SCH (12:16)
[2019-03-23] MEDS: metFORMIN 500 MG TABLET PO SCH ×2 (12:16→17:35)
[2019-03-23] MEDS: PANTOPRAZOLE 40 MG TABLET.DR. PO SCH (12:16)
[2019-03-23] MEDS: ZIPRASIDONE 20 MG CAPSULE PO SCH (12:22)
[2019-03-23] MEDS: ZIPRASIDONE 60 MG CAPSULE. PO SCH (12:22)
--- NOTE | 2019-03-23 12:37 | NUR ---
SW following for discharge planning. Discussed with RN, diet being advanced today. SW confirmed pt is from [facility], faxed updates (03/23/19). SW will continue to follow for any discharge planning needs.
[2019-03-23] MEDS ORDERED: CALCIUM CARBONATE 500 MG TABLET PO PRN (13:00)
[2019-03-23 15:00] VITALS: BP 123/53
[2019-03-23 19:30] VITALS: BP 123/64
--- NOTE | 2019-03-23 19:55 | PN ---
DATE: 03/23/2019 SUBJECTIVE: The patient is resting slightly propped up in bed, sleeping comfortably in no apparent distress. On questioning her, she denied further episodes of nausea or vomiting. Denied abdominal pain. Did complain of headache. Nursing staff did not voice any concerns, that she had an uneventful night. PHYSICAL EXAMINATION: GENERAL: When I examined her, she looked pale, but no jaundice, cyanosis or thyromegaly. No jugular venous distension. No lower limb edema. VITAL SIGNS: Her heart rate was 70, blood pressure was 151/80, temperature was 98.5, respiratory rate was 18 and oxygen saturation was 91% on room air. HEAD, EYES, EARS, NOSE HEAD, EYES: Showed normocephalic, atraumatic. NECK: Supple. HEART: Showed normal first and second sounds. No gallop, rub or murmur. CHEST: Clear to auscultation. No crepitation or rhonchi. ABDOMEN: Distended, soft. There is no guarding or rigidity. No organomegaly. All hernial orifices intact. Bowel sounds normal. NEUROLOGIC: She is sleepy, but arousable. All cranial nerves intact. She moves extremities without difficulty. Her intake was 1000, output was 900. LABORATORY DATA: As of this morning, her white cell count is 7800, hemoglobin 12, hematocrit 37, MCV 90 and platelet count 247,000. Her serum sodium was 138, potassium 4.6, chloride 104, bicarbonate 28, anion gap of 6, BUN 11, creatinine 1, estimated GFR was 58 mL per minute. Her glucose was 183, calcium was 9.3. Total bilirubin, AST, ALT, alkaline phosphatase were normal. Total protein was 7.8, albumin 3. C-reactive protein was 22.4 mg/dL. Her urinalysis was essentially unremarkable. ASSESSMENT: 1. Recurrent bouts of nausea, vomiting, abdominal pain, mostly in the right lower quadrant. 2. CT scan showed that her appendix was surgically absent; however, she was diagnosed with sigmoid diverticulitis. 3. History of lower gastrointestinal bleeding. 4. He had multiple retroperitoneal lymphadenopathy. 5. The patient has had no further episodes of nausea, vomiting, no abdominal pain. She is tolerating a liquid diet well. PLAN: My plan is to reconcile all her medication, advance her diet. Meanwhile, we will continue with IV levofloxacin as well as Flagyl. Continue with pain management as well as antiemetic as needed. We might have to restart her insulin as she is on large doses of both NovoLog and Lantus insulin. ADDI ABREU MD DR: EDU/sundar JOB#: [id number] / [id number]
[2019-03-23] MEDS: HYDROCORTISONE 1% TOPICAL OINTMENT 30GM TUBE. TP PRN (20:03)
[2019-03-23] MEDS: DOCUSATE SODIUM 100 MG CAPSULE. PO SCH (20:10)
[2019-03-23] MEDS ORDERED: ZIPRASIDONE 60 MG CAPSULE. PO SCH (21:00)
[2019-03-23] MEDS ORDERED: PRAZOSIN 1 MG CAPSULE. PO SCH (21:00)
[2019-03-23] MEDS ORDERED: INSULIN GLARGINE 300 UNITS/3 ML INSULN.PEN. SQ SCH (21:00)
[2019-03-23] MEDS ORDERED: DIVALPROEX EXTENDED RELEASE 250 MG TAB.ER.24H. PO SCH (21:00)
[2019-03-23] MEDS ORDERED: NON FORMULARY ITEM (Melatonin 3 MG) PO SCH (21:00)
[2019-03-23] MEDS ORDERED: ATORVASTATIN CALCIUM 20 MG TABLET PO SCH (21:00)
[2019-03-23] MEDS: LACTOBACILLUS RHAMNOSUS GG 1 CAPSULE. PO SCH (22:12)
[2019-03-23 23:35] VITALS: BP 126/66
[2019-03-24] MEDS: ACETAMINOPHEN 325 MG TABLET. PO PRN (00:26)
[2019-03-24] MEDS: IV DEXTROSE 5 %-0.45 % NACL 1,000 ML IV SCH ×2 (00:26→07:45)
[2019-03-24 03:07] VITALS: BP 138/50
[2019-03-24] MEDS: PANTOPRAZOLE 40 MG TABLET.DR. PO SCH (06:44)
[2019-03-24 07:00] VITALS: BP 121/61
[2019-03-24 07:16] LABS: CALCIUM 8.7 mg/dL (8.5-10.1); CREATININE 1.1 mg/dL (0.6-1.0); GFR 52.4; MAGNESIUM 1.3 mg/dL (1.8-2.4)
[2019-03-24] MEDS: LEVOTHYROXINE 112 MCG TABLET PO SCH (07:47)
[2019-03-24] MEDS: INSULIN GLARGINE 300 UNITS/3 ML INSULN.PEN. SQ SCH ×2 (07:49→07:59)
[2019-03-24] MEDS ORDERED: ASPIRIN ENTERIC COATED 81 MG TABLET.DR. PO SCH (09:00)
[2019-03-24] MEDS: DOCUSATE SODIUM 100 MG CAPSULE. PO SCH (09:00)
[2019-03-24] MEDS ORDERED: METR500T PO (09:02)
[2019-03-24] MEDS ORDERED: LEVO750T5 PO (09:02)
[2019-03-24] MEDS ORDERED: MAGN400T22 PO (09:10)
--- NOTE | 2019-03-24 09:18 | SNU/HH DC ---
DISCHARGE ORDERS DISCHARGE INFORMATION: DISCHARGE DATE: March 24, 2019 FINAL DIAGNOSIS Problems Medical Problems: (1) Abdominal pain Status: Acute (2) Diabetes mellitus Status: Acute (3) Diverticulitis large intestine Status: Acute (4) History of bipolar disorder Status: Acute (5) Morbid obesity with BMI of 40.0-44.9, adult Status: Acute CONDITION ON DISCHARGE: Stable CODE STATUS: Code Status: Full FCI: SNF STAY <30 DAYS: No POST DISCHARGE ORDERS: ACTIVITY ORDERS: Resume previous activity DIET AFTER DISCHARGE: ADA CHECKS AFTER DISCHARGE: CHECKS AFTER DISCHARGE: Check blood sugar, ac/hs FOLLOW-UP: PHYSICIAN FOLLOW-UP: PCP IN ONE WEEK TREATMENT/EQUIPMENT ORDERS: ADAPTIVE EQUIPMENT NEEDED: None Physical Therapy For: Evalulation/Treatment Occupational Therapy For: Evaluation/Treatment DISCHARGE MEDICATIONS: Home Meds Active Scripts Magnesium Oxide (MAG-OXIDE) 400 Mg Tablet, 400 MG PO TID for HYPOMAGNESEMIA for 30 Days, #90 TAB 5 Refills Prov:ADDI ABREU MD 03/24/19 Levofloxacin (LEVOFLOXACIN) 750 Mg Tablet, 1 TAB PO DAILY for diveticulitis for 7 Days, #7 TAB Prov:ADDI ABREU MD 03/24/19 Metronidazole (FLAGYL) 500 Mg Tablet, 500 MG PO TID for diverticulitis for 7 Days, #21 TAB Prov:ADDI ABREU MD 03/24/19 Reported Medications Estradiol (ESTRADIOL) 1 Each Patch.tdwk, 1 EACH TD, PATCH 03/23/19 Insuln Asp Prt/Insulin Aspart (NOVOLOG MIX 70-30 FLEXPEN SYRN) 100 Unit/1 Ml Insuln.pen, 26 UNIT SQ TIDAC, SYR 03/23/19 Divalproex Sodium (DEPAKOTE ER) 250 Mg Tab.er.24h, 250 MG PO QHS for 750 MG TOTAL, TAB.SR 03/23/19 Ziprasidone Hcl (GEODON) 80 Mg Capsule, 200 MG PO DAILY for BIPOLAR, CAP 03/22/19 Divalproex Sodium (DIVALPROEX SODIUM ER) 500 Mg Tab.er.24h, 1 TAB PO QHS for SEIZURES, #60 TAB 03/22/19 Sitagliptin Phosphate (JANUVIA) 100 Mg Tablet, 1 TAB PO DAILY for DIABETES, #30 TAB 5 Refills 03/22/19 Pantoprazole Sodium (PROTONIX) 20 Mg Tablet.dr, 40 MG PO DAILY for GERD, TAB 03/22/19 Metformin Hcl (METFORMIN HCL) 1,000 Mg Tablet, 1000 MG PO BIDWMEALS for GLUCOSE, TAB 03/22/19 Menthol (COUGH DROPS) 5 Mg Lozenge, 5 MG MM Q1HR PRN for COUGH, LOZENGE 03/22/19 Lisinopril (LISINOPRIL) 20 Mg Tablet, 1 TAB PO DAILY for HYPERTENSION, #30 TAB 5 Refills 03/22/19 Levothyroxine Sodium (LEVOTHYROXINE SODIUM) 112 Mcg Tablet, 112 MCG PO DAILYAC for GLUCOSE, #30 TAB 0 Refills 03/22/19 Insulin Glargine,Hum.rec.anlog (LANTUS SOLOSTAR) 100 Unit/1 Ml Insuln.pen, 75 UNIT SQ DAILYAC for GLUCOSE, #15 ML 3 Refills 03/22/19 Insulin Glargine,Hum.rec.anlog (LANTUS SOLOSTAR) 100 Unit/1 Ml Insuln.pen, 55 UNIT SQ QHS for GLUCOSE, #15 ML 3 Refills 03/22/19 Ibuprofen (IBUPROFEN) 600 Mg Tablet, 600 MG PO Q8HRS PRN for MILD PAIN, TAB 03/22/19 Docusate Sodium (DOCUSATE SODIUM) 100 Mg Capsule, 1 CAP PO BID for CONSTIPATION, #30 CAP 03/22/19 Docusate Sodium (DOCUSATE SODIUM) 100 Mg Capsule, 1 CAP PO BID PRN for CONSTIPATION, #30 CAP 03/22/19 Citalopram Hydrobromide (CELEXA) 20 Mg Tablet, 1 TAB PO DAILY for ANTIDEPRESSANT , #90 TAB 3 Refills 03/22/19 Calcium Carbonate (CALCIUM CARBONATE) 400 Mg Tab.chew, 500 MG PO PRN Q2HRS PRN for HEARTBURN / GAS, TAB.CHEW 03/22/19 Atorvastatin Calcium (LIPITOR) 20 Mg Tablet, 20 MG PO HS for CHOLESTEROL, #30 TAB 0 Refills 03/22/19 Aspirin (Lo-Dose Aspirin EC) 81 Mg Tablet.dr, 81 MG PO DAILY for BLOOD THINNER, TAB.SR 03/22/19 Ipratropium/Albuterol Sulfate (DUONEB 0.5-3(2.5) MG/3 ML) 3 Ml Ampul.neb, 3 ML NEB BID PRN for WHEEZING, EACH 03/22/19 Acetaminophen (ACETAMINOPHEN) 500 Mg Tablet, 2 TAB PO Q4HRS PRN for KNEE PAIN, #60 TAB 03/22/19 Prazosin Hcl (PRAZOSIN HCL) 1 Mg Capsule, 1 CAP PO QHS for HYPERTENSION, #30 CAP 2 Refills 03/22/19 Melatonin (MELATONIN) 3 Mg Tablet, 3 MG PO QHS for SLEEP, TAB 03/22/19 Discontinued Reported Medications Magnesium Oxide (MAGNESIUM OXIDE) 400 Mg Tablet, 1 TAB PO DAILY for SUPPLEMENT, #30 TAB 5 Refills 03/22/19 Ziprasidone Hcl (GEODON) 80 Mg Capsule, 80 MG PO DAILY for BIPOLAR, CAP 03/22/19 Divalproex Sodium (DIVALPROEX SODIUM ER) 500 Mg Tab.er.24h, 0.5 TAB PO QHS for BIPOLAR, #60 TAB TOTAL OF 750mg HS 03/22/19 Insulin Aspart (NOVOLOG FLEXPEN) 100 Unit/1 Ml Insuln.pen, 26 UNITS SQ TIDBFRMEAL for GLUCOSE, SYR 03/22/19 Acetaminophen (ACETAMINOPHEN) 500 Mg Tablet, 1000 MG PO PRN Q4HRS PRN for KNEE PAIN, TAB 03/22/19 Olanzapine (OLANZAPINE) 5 Mg Tablet, 5 MG PO PRN BID for AGITATION, TAB 03/22/19 Melatonin (MELATONIN) 3 Mg Tablet, 3 MG PO QHS PRN for SLEEP, TAB 03/22/19 ADDI ABREU MD March 24, 2019 09:18
[2019-03-24] MEDS ORDERED: MAGNESIUM SULFATE 2GM 50 ML IV ONE (09:30)
[2019-03-24] MEDS: FAMOTIDINE 20 MG/2 ML VIAL IVP SCH (09:45)
[2019-03-24] MEDS: LINAGLIPTIN 5 MG TABLET PO SCH (09:46)
[2019-03-24] MEDS: MAGNESIUM OXIDE 400 MG TABLET PO SCH (09:46)
[2019-03-24] MEDS: ZIPRASIDONE 20 MG CAPSULE PO SCH (09:46)
[2019-03-24] MEDS: ZIPRASIDONE 60 MG CAPSULE. PO SCH (09:46)
[2019-03-24] MEDS: LACTOBACILLUS RHAMNOSUS GG 1 CAPSULE. PO SCH (09:47)
[2019-03-24] MEDS: LISINOPRIL 20 MG TABLET PO SCH (09:47)
[2019-03-24] MEDS: metFORMIN 500 MG TABLET PO SCH (09:47)
[2019-03-24] MEDS: CITALOPRAM 20 MG TABLET. PO SCH (09:48)
[2019-03-24] MEDS: INSULIN LISPRO 300 UNITS/3 ML INSULN.PEN. SQ SCH ×4 (09:54→12:00)
--- NOTE | 2019-03-24 10:55 | NUR ---
SW following for discharge planning. Discussed with RN, and Dr. Nichols. Dr. Nichols is discharging pt back to [facility], [place] today. DOUG phoned and faxed discharge paperwork. Awaiting transportation time. DOUG will continue to follow.
[2019-03-24 11:00] VITALS: BP 130/64
--- NOTE | 2019-03-24 11:46 | PDOC ---
Subjective: Subjective: Feeling better. Tolerating PO, denies pain, wants to go home. Objective: Vital Signs: Vital Signs Date Time Temp Pulse Resp B/P (MAP) Pulse Ox O2 Delivery O2 Flow Rate FiO2 03/24/19 11:00 99.4 59 18 130/64 (86) 94 Room Air 99.4 Labs: Laboratory Tests Test 03/23/19 16:50 03/23/19 20:57 03/24/19 04:41 03/24/19 05:33 Glucose (Fingerstick) 200 mg/dL 146 mg/dL 208 mg/dL Sodium Level 137 mmol/L Potassium Level 4.0 mmol/L Chloride Level 102 mmol/L Carbon Dioxide Level 24 mmol/L Anion Gap 11 Blood Urea Nitrogen 11 mg/dL Creatinine 1.1 mg/dL Estimated GFR (Cockcroft-Gault) 52.4 Glucose Level 236 mg/dL Calcium Level 8.7 mg/dL Magnesium Level 1.3 mg/dL Test 03/24/19 07:52 03/24/19 08:56 Glucose (Fingerstick) 210 mg/dL 304 mg/dL PE: GEN: NAD - was asleep LUNGS: CTAB HEART: RRR ABD: S/ND/NT NEURO/PSYCH: A & O 3 A/P: Diverticulitis - better -- ?PO atbx and DC Outpt colonoscopy. Probably doesn't need PO PPI + IV H2 emily - will stop Pepcid. JOS FRAUSTO March 24, 2019 11:46
--- NOTE | 2019-03-24 14:11 | NUR ---
This RN attempted to call report to [facility] @[phone] with no answer. Discharge instructions reviewed with patient though patient has cognitive delays. Patient escorted out via wheelchair by transport from her facility.
--- NOTE | 2019-03-24 16:43 | DS ---
DATE OF DISCHARGE: 03/24/2019 HISTORY OF PRESENT ILLNESS: The patient is a 53-year-old female patient, a resident at [facility] in [place], who was admitted with recurrent bouts of nausea, vomiting and right lower quadrant pain. She was investigated in the Emergency Room, was found to have acute diverticulitis and initially was kept n.p.o., then we advanced her diet to clear liquid and eventually as tolerated. She has had no more nausea, no vomiting, no abdominal pain. She is tolerating her diet very well, has been up and about. A decision was made to discharge her back to [facility] at [place] to complete a course of treatment as an outpatient. PHYSICAL EXAMINATION: GENERAL: When I saw her this morning, she looked well and was clearly in no apparent respiratory distress. No pallor or jaundice, cyanosis, or thyromegaly. No jugular venous distension. No lower limb edema. VITAL SIGNS: Her heart rate was 66, blood pressure was 121/61, temperature was 98.4, respiratory rate was 18 and oxygen saturation was 94%. HEAD, EYES, EARS, NOSE AND THROAT: Normocephalic, atraumatic. NECK: Supple. HEART: Showed normal first and second sounds. No gallop, rub or murmur. CHEST: Clear to auscultation. No crepitation or rhonchi. ABDOMEN: Distended, soft, nontender. No guarding or rigidity. No organomegaly. Hernial orifice is intact. Bowel sounds are normal. NEUROLOGIC: She is awake, alert, responding appropriately. Cranial nerves are intact. EXTREMITIES: She moves extremities without difficulty. She ambulates without assistance or assistive devices. Her intake was 1000, output was 726. LABORATORY DATA: As of yesterday showed a white cell count of 7800, hemoglobin 12, hematocrit 37, MCV 90 and platelet count of 247,000. Her chemistry showed serum sodium 137, potassium 4, chloride 102, bicarbonate 24, anion gap 11, BUN 11, creatinine 1.1, estimated GFR was 52 mL per minute, her glucose was 236, calcium was 8.7, and magnesium was low at 1.3. DISCHARGE MEDICATIONS: She was discharged back to [facility] to continue on levofloxacin 750 mg daily for 7 more days, Flagyl 500 mg 3 times a day for 7 more days, acetaminophen 1000 mg every 8 hours as needed for knee pain, aspirin 81 mg once a day, atorvastatin calcium 20 mg at bedtime, calcium carbonate 500 mg every 2 hours as needed for heartburn, citalopram hydrobromide for Celexa 20 mg once a day, divalproex sodium extended release 500 mg, takes 750 mg at bedtime, Colace 100 mg twice a day for constipation, estradiol 1 patch topically once a week, ibuprofen 600 mg every 8 hours, Lantus insulin at 75 units daily and 55 units at bedtime. She is on NovoLog insulin 26 units before meals, ipratropium bromide, albuterol sulfate in 3 mL by nebulizer twice a day, levothyroxine sodium 112 mcg once a day, lisinopril 20 mg once a day, magnesium oxide 400 mg daily, melatonin 3 mg at bedtime, cough drops 5 mg every hour as needed, metformin 1000 mg twice a day with meals, Protonix 40 mg once a day, prazosin 1 mg at bedtime, sitagliptin phosphate for Januvia 100 mg once a day and ziprasidone 80 mg, she takes 200 mg p.o. daily. FINAL DISCHARGE DIAGNOSES: 1. Acute diverticulitis. 2. Type 2 diabetes mellitus. 3. Hypertension. 4. Hypothyroidism. 5. Hyperlipidemia. 6. Tobacco abuse disorder. 7. Borderline personality. 8. Schizophrenia. 9. Bipolar disorder. 10. Posttraumatic stress disorder. 11. Hypomagnesemia. My plan is to obviously treat her with magnesium sulfate 2 grams IV while here and increase her magnesium oxide to 3 times a day. ADDI ABREU MD DR: EDU/sundar JOB#: [id number] / [id number]
== END 2019-03-24 14:13 | disposition home or self-care (01) | DRG 392 ==
LOC: ER 15:10 → 4 NORTH 16:39
PROVIDERS: ADMIT Internal Medicine; ATTEND Internal Medicine
DX: K57.32 Diverticulitis of large intestine without perforation or abscess without bleeding (principal); Z68.41 Body mass index [BMI] 40.0-44.9, adult; E66.01 Morbid (severe) obesity due to excess calories; I10 Essential (primary) hypertension; E11.9 Type 2 diabetes mellitus without complications; E03.9 Hypothyroidism, unspecified; E78.00 Pure hypercholesterolemia, unspecified; E78.5 Hyperlipidemia, unspecified; E83.42 Hypomagnesemia; F17.210 Nicotine dependence, cigarettes, uncomplicated; F20.9 Schizophrenia, unspecified; F31.9 Bipolar disorder, unspecified; F43.10 Post-traumatic stress disorder, unspecified; F60.3 Borderline personality disorder; K64.9 Unspecified hemorrhoids; K76.0 Fatty (change of) liver, not elsewhere classified; Z90.49 Acquired absence of other specified parts of digestive tract; Z98.51 Tubal ligation status; Z79.899 Other long term (current) drug therapy; Z88.0 Allergy status to penicillin; Z88.8 Allergy status to other drugs, medicaments and biological substances
CPT/HCPCS: 36415; 74176; 80048; 80053; 81001; 82962; 83615; 83690; 83735; 85025; 85027; 86140; 87493; 94760; J1815; J1956; J2405; J3010; J3475; J3490; J7030; Q0163; 99285-25

== ENCOUNTER 2019-03-26 17:27 | Emergency (ER) | payer MEDICAID ==
[~2019-03-26] VITALS: Ht 162.6 cm; Wt 106.1 kg
[~2019-03-26 17:27] MED LIST: ACET500T68 PO; ASPI-171 PO; ATOR20TA PO; CALC400T40 PO; CITA20TA9 PO; DIVA250T PO; DIVA500T17 PO; DOCU100C28 PO; ESTR1PAT27 TD; IBUP-1007 PO; INSU100I13 SQ; INSU100I16 SQ; INSU100I17 SQ; IPRA3AMP29 NEB; LEVO112T4 PO; LEVO750T5 PO; LISI-334 PO; MAGN400T22 PO; MAGN400T3 PO; MELA3TAB2 PO; MENT5LOZ MM; METF10007 PO; METR500T PO; OLAN5TAB9 PO; PANT20TA2 PO; PRAZ1CAP2 PO; SITA100T PO; ZIPR80CA2 PO
[2019-03-26 17:37] VITALS: BP 133/77
[2019-03-26 18:42] LABS: BILIRUBIN,URINE NEGATIVE (NEG); CLARITY,URINE CLEAR; COLOR,URINE YELLOW; NITRITE,URINE NEGATIVE (NEG); PROTEIN,URINE NEGATIVE (NEG-TRACE); UROBILINOGEN,URINE 0.2 mg/dL (0.2 mg/dL)
[2019-03-26 18:48] LABS: BARBITURATES NEG (NEG); BENZODIAZEPINES NEG (NEG); CANNABINOIDS NEG (NEG); COCAINE NEG (NEG); METHADONE NEG (NEG); OPIATES NEG (NEG); PHENCYCLIDINE NEG (NEG)
--- NOTE | 2019-03-26 18:50 | RAD ---
Right knee 3 views. HISTORY: Pain after a fall 3 views were taken of the right knee. There is not evidence of an acute fracture or joint effusion or osseous abnormality. IMPRESSION: 1. Negative right knee. Electronically signed by: Kendall Proctor MD (03/26/2019 6:47 PM) [facility]
[2019-03-26 18:51] LABS: BACTERIA,URINE 0 /HPF (0-FEW); RBC,URINE 0 /HPF (0-2); SQUAMOUS EPITHELIAL CELL,UR FEW /LPF; WBC,URINE 0 /HPF (0-4)
[2019-03-26 18:52] LABS: AMPHETAMINE/METHAMPHETAMINE NEG (NEG)
--- NOTE | 2019-03-26 18:57 | PHYS DOC ---
Past Medical History Past Medical History: Anemia, Bipolar, Diabetes-Type II, High Cholesterol, Hypertension, Hypothyroid, Schizophrenia, Other Additional Past Medical Histor: LOW/UP GI BLEED,BORDERLINE PERSONALITY,PTSD,ACUTE RESP FAIL Past Surgical History: , Tubal ligation Alcohol Use: None Drug Use: None Adult General Chief Complaint Chief Complaint: [facility] HPI Patient is a 53 year old female with history of diabetes type 2, hypertension, schizophrenia, mentally challenged, who presents from a local skilled nursing, patient states she is supposed to ambulate with a, walker, patient states she was getting dressed and decided did not use her walker to ambulate, she states tripped on her own feet and fell landing on the left side. Patient denies any loss of consciousness, she is complaining of 10 out of 10 right knee pain, mid and low back pain, left neck pain and right hip pain, she states most of her pain is on range of motion especially on the knee. She states she believes she hit her head on something. Denies being on any anticoagulants. She states most of the pain is on the knee and worse on range of motion to the knee. Review of Systems Review of Systems Constitutional: Denies fever or chills [] Eyes: Denies change in visual acuity, redness, or eye pain [] HENT: Denies nasal congestion or sore throat [] Respiratory: Denies cough or shortness of breath [] Cardiovascular: No additional information not addressed in HPI [] GI: Denies abdominal pain, nausea, vomiting, bloody stools or diarrhea [] : Denies dysuria or hematuria [] Musculoskeletal: Reports left lateral neck pain, right knee pain. Reports mid and low back pain Integument: Denies rash or skin lesions [] Neurologic: Reports hitting the left side of head. Denies headache, focal weakness or sensory changes [] All other systems were reviewed and found to be within normal limits, except as documented in this note. Allergies Allergies Allergies Coded Allergies Type Severity Reaction Last Updated Verified Penicillins Allergy Severe Anaphylaxis 03/21/19 Yes gabapentin Allergy Intermediate Hives 03/21/19 Yes tuberculin,PPD,multi-puncture Allergy Unknown 03/21/19 Yes Physical Exam Physical Exam Constitutional: Well developed, well nourished, no acute distress, non-toxic appearance. [] HENT: Normocephalic, atraumatic, bilateral external ears normal, oropharynx moist, no oral exudates, nose normal. [] Eyes: PERRLA, EOMI, conjunctiva normal, no discharge. [] Neck: Patient is in a c-collar. Limited range of motion to the cervical spine due to the c-collar, mild paraspinal muscle tenderness to the left lateral cervical spine, no midline cervical spine tenderness, supple, no stridor. [] Cardiovascular:Heart rate regular rhythm, no murmur [] Lungs & Thorax: Bilateral breath sounds clear to auscultation [] Abdomen: Bowel sounds normal, soft, no tenderness, no masses, no pulsatile masses. [] Skin: Warm, dry, no erythema, no rash. [] Back: Mild thoracic and lumbar spine midline tenderness as well as paraspinal muscle tenderness to the lateral aspect of the thoracic and lumbar spine, no CVA tenderness. [] Extremities: No tenderness, no cyanosis, no clubbing, ROM intact, no edema. [] Neurologic: Alert and oriented X 3, normal motor function, normal sensory function, no focal deficits noted. Cranial nerves II through XII intact Psychologic: Affect normal, judgement normal, mood normal. [] Current Patient Data Vital Signs Vital Signs Date Time Temp Pulse Resp B/P (MAP) Pulse Ox O2 Delivery O2 Flow Rate FiO2 03/26/19 17:28 98.4 78 16 133/77 (95) 96 Room Air 98.4 Lab Values Laboratory Tests Test 03/26/19 17:40 Urine Collection Type Void Urine Color Yellow Urine Clarity Clear Urine pH 7.0 Urine Specific [place] 1.010 Urine Protein Negative mg/dL (NEG-TRACE) Urine Glucose (UA) Negative mg/dL (NEG) Urine Ketones (Stick) Negative mg/dL (NEG) Urine Blood Negative (NEG) Urine Nitrite Negative (NEG) Urine Bilirubin Negative (NEG) Urine Urobilinogen Dipstick 0.2 mg/dL (0.2 mg/dL) Urine Leukocyte Esterase Negative (NEG) Urine RBC 0 /HPF (0-2) Urine WBC 0 /HPF (0-4) Urine Squamous Epithelial Cells Few /LPF Urine Bacteria 0 /HPF (0-FEW) Urine Opiates Screen Neg (NEG) Urine Methadone Screen Neg (NEG) Urine Barbiturates Neg (NEG) Urine Phencyclidine Screen Neg (NEG) Urine Amphetamine/Methamphetamine Neg (NEG) Urine Benzodiazepines Screen Neg (NEG) Urine Cocaine Screen Neg (NEG) Urine Cannabinoids Screen Neg (NEG) Urine Ethyl Alcohol Neg (NEG) EKG EKG [] Radiology/Procedures Radiology/Procedures []REASON: fall, RIGHT SIDED PAIN PROCEDURE: CT HEAD AND CERVICAL SPINE WO ADDENDUM PQRS Compliance Statement: One or more of the following individualized dose reduction techniques were utilized for this examination: 1. Automated exposure control 2. Adjustment of the mA and/or kV according to patient size 3. Use of iterative reconstruction technique Electronically signed by: Nuzhat Ohara MD (03/26/2019 7:40 PM) [facility] DICTATED AND SIGNED BY: NUZHAT OHARA MD DATE: 03/26/191939 CC: ADDI ABREU MD; JOSE FERRER APRN ~ CT brain without contrast, CT C-spine without contrast. HISTORY: Fall, right-sided pain CT brain CT scan of brain was done without contrast. There is no skull fracture. Visualized sinuses are clear. There is chronic sclerosis of the mastoids. There is no intracranial hemorrhage or subdural hematoma. Ventricles are normal in size. There is no mass or shift of the midline. IMPRESSION: 1. No intracranial hemorrhage or acute finding noted. End impression CT cervical spine Axial CT images were obtained through the cervical spine. Sagittal and coronal reconstructed images were reviewed. An acute C-spine fracture is not identified. There is disc space narrowing and spurring at C5-6 and C6-7. There is mild narrowing of the spinal canal at C5-6. IMPRESSION: 1. Degenerative spondylosis C5-6 and C6-7. 2. No acute C-spine fracture. Electronically signed by: Nuzhat Ohara MD (03/26/2019 6:52 PM) [facility] DICTATED and SIGNED BY: NUZHAT OHARA MD DATE: 03/26/19 924 PROCEDURE: KNEE RIGHT 3V Right knee 3 views. HISTORY: Pain after a fall 3 views were taken of the right knee. There is not evidence of an acute fracture or joint effusion or osseous abnormality. IMPRESSION: 1. Negative right knee. Electronically signed by: Nuzhat Ohara MD (03/26/2019 6:47 PM) [facility] DICTATED and SIGNED BY: NUZHAT OHARA MD DATE: 03/26/19 2787 PROCEDURE: CT LUMBAR SPINE WO CONTRAST CT thoracic spine without contrast, CT lumbar spine without contrast. HISTORY: Fall, right-sided pain Axial CT images were obtained to the thoracic spine. Sagittal and coronal reconstructed images were reviewed. Visualized lungs are clear. There is no pleural effusion. Visualized posterior ribs are unremarkable. There is no focal disc protrusion or spinal stenosis and thoracic spinal canal. There is no thoracic compression fracture. There is minimal hypertrophic change in the lower thoracic spine. IMPRESSION: 1. No acute fracture noted in the thoracic spine. End impression CT lumbar spine Axial CT images were obtained to the lumbar spine. Sagittal and coronal reconstructed images were reviewed. There is no acute fracture in the lumbar spine. Disc spaces are normal in height. There is slight spurring at L1-2 without a focal disc protrusion or spinal stenosis. There is mild bulging of the disc at L2-3 without spinal stenosis or foraminal stenosis. There is bulging of the disc especially to the left at L3-4 without central spinal stenosis or foraminal stenosis. There is diffuse bulging of the disc with mild lateral recess stenosis at L4-5. There is foraminal narrowing on the left at L4-5. There is a small central disc bulge or protrusion at L5-S1 without spinal stenosis or foraminal stenosis. IMPRESSION: 1. No acute fracture noted in the lumbar spine. 2. Disc bulge or protrusion most prominent at L4-5, to lesser extent at L5-S1 and L3-4 PQRS Compliance Statement: One or more of the following individualized dose reduction techniques were utilized for this examination: 1. Automated exposure control 2. Adjustment of the mA and/or kV according to patient size 3. Use of iterative reconstruction technique Electronically signed by: Nuzhat Ohara MD (03/26/2019 7:01 PM) [facility] DICTATED and SIGNED BY: NUZHAT OHARA MD DATE: 03/26/191900 PROCEDURE: CT THORACIC SPINE WO CONTRAST CT thoracic spine without contrast, CT lumbar spine without contrast. HISTORY: Fall, right-sided pain Axial CT images were obtained to the thoracic spine. Sagittal and coronal reconstructed images were reviewed. Visualized lungs are clear. There is no pleural effusion. Visualized posterior ribs are unremarkable. There is no focal disc protrusion or spinal stenosis and thoracic spinal canal. There is no thoracic compression fracture. There is minimal hypertrophic change in the lower thoracic spine. IMPRESSION: 1. No acute fracture noted in the thoracic spine. End impression CT lumbar spine Axial CT images were obtained to the lumbar spine. Sagittal and coronal reconstructed images were reviewed. There is no acute fracture in the lumbar spine. Disc spaces are normal in height. There is slight spurring at L1-2 without a focal disc protrusion or spinal stenosis. There is mild bulging of the disc at L2-3 without spinal stenosis or foraminal stenosis. There is bulging of the disc especially to the left at L3-4 without central spinal stenosis or foraminal stenosis. There is diffuse bulging of the disc with mild lateral recess stenosis at L4-5. There is foraminal narrowing on the left at L4-5. There is a small central disc bulge or protrusion at L5-S1 without spinal stenosis or foraminal stenosis. IMPRESSION: 1. No acute fracture noted in the lumbar spine. 2. Disc bulge or protrusion most prominent at L4-5, to lesser extent at L5-S1 and L3-4 PQRS Compliance Statement: One or more of the following individualized dose reduction techniques were utilized for this examination: 1. Automated exposure control 2. Adjustment of the mA and/or kV according to patient size 3. Use of iterative reconstruction technique Electronically signed by: Nuzhat Ohara MD (03/26/2019 7:01 PM) [facility] DICTATED and SIGNED BY: NUZHAT OHARA MD DATE: 03/26/191900 PROCEDURE: HIP RIGHT 2V WITH PELVIS Right hip 2 views with one view pelvis. HISTORY: Pain after a fall Single view was taken of the pelvis. There is no pelvic fracture or acute osseous abnormality. Left hip appears unremarkable. AP and lateral views were taken of the right hip. There is no fracture or osseous abnormality. impression: 1. No fracture noted in in the pelvis or right hip. Electronically signed by: Nuzhat Ohara MD (03/26/2019 7:02 PM) [facility] DICTATED and SIGNED BY: NUZHAT OHARA MD DATE: 03/26/191901 Course & Med Decision Making Course & Med Decision Making Pertinent Labs and Imaging studies reviewed. (See chart for details) This is a 53-year-old female patient presenting to the ED today status post falling at the skilled nursing, was complaining of left lateral neck pain, mid and low back pain, right knee pain and left hip pain. CT of the head, cervical spine, thoracic and lumbar spine are negative for any acute findings, right hip x-rays, including pelvic and hip are negative. Right knee x-rays are negative. Urine analysis is negative for infection, patient was discharged back to the skilled nursing, reminded to walk using her walker. Follow-up with her PCP in 1-2 weeks. Dragon Disclaimer Dragon Disclaimer This electronic medical record was generated, in whole or in part, using a voice recognition dictation system. Departure Departure Impression: Primary Impression: Fall from standing Additional Impressions: Head contusion Lumbar contusion Contusion of thoracic wall Contusion of right hip Contusion of right knee Disposition: 01 HOME, SELF-CARE Condition: STABLE Referrals: ADDI ABREU MD (PCP) follow up next week Patient Instructions: Contusion, [id number], Fall Prevention and Home Safety Additional Instructions: You were evaluated in the emergency room after falling, your CT of the head, cervical spine, thoracic and lumbar spine were negative for any acute findings, your right knee x-rays and right hip x-rays including pelvic were negative. Please continue to follow-up with your doctor. Apply ice to the affected area and try to elevate the affected areas. Take Tylenol as needed for pain or Motrin. Problem Qualifiers Primary Impression: Fall from standing Encounter type: initial encounter Qualified Codes: W19.XXXA - Unspecified fall, initial encounter Additional Impressions: Head contusion Encounter type: initial encounter Contusion of head detail: other part of head Qualified Codes: S00.83XA - Contusion of other part of head, initial encounter Lumbar contusion Encounter type: initial encounter Qualified Codes: S30.0XXA - Contusion of lower back and pelvis, initial encounter Contusion of thoracic wall Encounter type: initial encounter Contusion of thoracic wall detail: back wall of thorax Laterality: left Qualified Codes: S20.222A - Contusion of left back wall of thorax, initial encounter Contusion of right hip Encounter type: initial encounter Qualified Codes: S70.01XA - Contusion of right hip, initial encounter Contusion of right knee Encounter type: initial encounter Qualified Codes: S80.01XA - Contusion of right knee, initial encounter JOSE FERRER APRN March 26, 2019 18:57
--- NOTE | 2019-03-26 19:04 | RAD ---
CT thoracic spine without contrast, CT lumbar spine without contrast. HISTORY: Fall, right-sided pain Axial CT images were obtained to the thoracic spine. Sagittal and coronal reconstructed images were reviewed. Visualized lungs are clear. There is no pleural effusion. Visualized posterior ribs are unremarkable. There is no focal disc protrusion or spinal stenosis and thoracic spinal canal. There is no thoracic compression fracture. There is minimal hypertrophic change in the lower thoracic spine. IMPRESSION: 1. No acute fracture noted in the thoracic spine. End impression CT lumbar spine Axial CT images were obtained to the lumbar spine. Sagittal and coronal reconstructed images were reviewed. There is no acute fracture in the lumbar spine. Disc spaces are normal in height. There is slight spurring at L1-2 without a focal disc protrusion or spinal stenosis. There is mild bulging of the disc at L2-3 without spinal stenosis or foraminal stenosis. There is bulging of the disc especially to the left at L3-4 without central spinal stenosis or foraminal stenosis. There is diffuse bulging of the disc with mild lateral recess stenosis at L4-5. There is foraminal narrowing on the left at L4-5. There is a small central disc bulge or protrusion at L5-S1 without spinal stenosis or foraminal stenosis. IMPRESSION: 1. No acute fracture noted in the lumbar spine. 2. Disc bulge or protrusion most prominent at L4-5, to lesser extent at L5-S1 and L3-4 PQRS Compliance Statement: One or more of the following individualized dose reduction techniques were utilized for this examination: 1. Automated exposure control 2. Adjustment of the mA and/or kV according to patient size 3. Use of iterative reconstruction technique Electronically signed by: Kendall Proctor MD (03/26/2019 7:01 PM) [facility]
--- NOTE | 2019-03-26 19:05 | RAD ---
Right hip 2 views with one view pelvis. HISTORY: Pain after a fall Single view was taken of the pelvis. There is no pelvic fracture or acute osseous abnormality. Left hip appears unremarkable. AP and lateral views were taken of the right hip. There is no fracture or osseous abnormality. impression: 1. No fracture noted in in the pelvis or right hip. Electronically signed by: Kendall Proctor MD (03/26/2019 7:02 PM) [facility]
== END 2019-03-26 21:19 | disposition home or self-care (01) ==
LOC: ER 17:27
DX: S00.83XA Contusion of other part of head, initial encounter (principal); S30.0XXA Contusion of lower back and pelvis, initial encounter; S20.222A Contusion of left back wall of thorax, initial encounter; S70.01XA Contusion of right hip, initial encounter; S80.01XA Contusion of right knee, initial encounter; E11.9 Type 2 diabetes mellitus without complications; I10 Essential (primary) hypertension; F20.9 Schizophrenia, unspecified; E78.00 Pure hypercholesterolemia, unspecified; F31.9 Bipolar disorder, unspecified; E03.9 Hypothyroidism, unspecified; Z88.0 Allergy status to penicillin; Z88.7 Allergy status to serum and vaccine; Z88.8 Allergy status to other drugs, medicaments and biological substances; W01.0XXA Fall on same level from slipping, tripping and stumbling without subsequent striking against object, initial encounter; Y93.89 Activity, other specified; Y92.89 Other specified places as the place of occurrence of the external cause; Y99.8 Other external cause status
CPT/HCPCS: 70450; 72125; 72128; 72131; 73502; 73562; 80307; 81001; 99285-25

== ENCOUNTER 2019-04-03 20:35 | Emergency (ER) | payer MEDICAID ==
[~2019-04-03] VITALS: Ht 167.6 cm; Wt 97.1 kg
[2019-04-03 21:26] LABS: BASO # 0.1 x10^3/uL (0.0-0.2); BASO % 1 % (0-3); EOS # 0.1 x10^3/uL (0.0-0.7); EOS % 1 % (0-3); HEMOGLOBIN 13.4 g/dL (12.0-15.5); LYMPH # 4.6 x10^3/uL (1.0-4.8); LYMPH % 37 % (24-48); MEAN CORPUSCULAR HEMOGLOBIN 30 pg (25-35); MEAN CORPUSCULAR HGB CONC 34 g/dL (31-37); MEAN CORPUSCULAR VOLUME 90 fL (79-100); MONO # 1.2 x10^3/uL (0.0-1.1); MONO % 10 % (0-9); NEUT # 6.4 x10^3uL (1.8-7.7); NEUT % 51 % (31-73); PLATELET COUNT 266 x10^3/uL (140-400); RED BLOOD COUNT 4.46 x10^6/uL (3.50-5.40); RED CELL DISTRIBUTION WIDTH 15.3 % (11.5-14.5); WHITE BLOOD COUNT 12.5 x10^3/uL (4.0-11.0)
[2019-04-03] MEDS ORDERED: MORPHINE SULFATE 4 MG/ML VIAL. IV ONE (21:30)
[2019-04-03] MEDS ORDERED: IV NORMAL SALINE 1000ML BAG 1,000 ML IV ONE (21:30)
[2019-04-03 21:33] LABS: PROTHROMBIN TIME PATIENT 12.4 SEC (11.7-14.0)
--- NOTE | 2019-04-03 21:40 | PHYS DOC ---
Past Medical History Past Medical History: Diabetes-Type II, Hypertension, Schizophrenia Additional Past Medical Histor: Borderline personality d/o, GI hemorrhage, ARF w/hypoxia Past Surgical History: , Tubal ligation Additional Past Surgical Histo: Pt reports prior "belly surgery" - unable to give details Alcohol Use: None Drug Use: None Adult General Chief Complaint Chief Complaint: MECHANICAL FALL HPI HPI Patient is a 53 year old female with past medical history of schizophrenia and dissociative identity disorder who presents by ambulance for evaluation foll owing a fall this evening. Patient states that she was walking to the restroom this evening when her right knee gave out and she fell on her right side for striking her right hip, right shoulder and eventually the right side of her head. She normally uses a walker while at home but was not using a walker tonight. Patient also notes that she did feel slightly lightheaded prior to the fall and she cannot definitively say if that was the cause of her fall or not. Currently the patient is complaining of headache, neck pain, right shoulder pain, and right hip pain. Pain is worst in the right hip rated at 10 out of 10. Patient also began experiencing chest pain while in transit to ED. Patient is d escribed as a sharp ache and is not associated with shortness of breath, nausea, or diaphoresis. Patient received 100 g of fentanyl while in transit and had some brief desaturations. Patient was placed on 3 L O2 by nasal cannula with improvement of her SpO2. Patient reports decreased sensation in right upper and lower extremities. Patient states that she had a tubal ligation and last menstrual period was years ago. She does not believe that there is any change in the at this time. Review of Systems Review of Systems Constitutional: Denies fever or chills [] Eyes: Reports blurred vision. Denies diplopia.[] HENT: Denies nasal congestion or sore throat [] Respiratory: Denies cough or shortness of breath [] Cardiovascular: Reports chest pain and lightheadedness. Denies palpitations.[] GI: Reports nausea. Denies abdominal pain, vomiting, or diarrhea [] Musculoskeletal: Reports right parietal pain, neck pain, right shoulder pain, right hip pain.[] Neurologic: Reports headache and numbness in the right upper extremity and lower extremity.[] Complete review of systems found to be within normal limits, except as documented in this note. Current Medications Current Medications Current Medications Medications (Trade) Dose Ordered Sig/Mickie Start Time Stop Time Status Last Admin Dose Admin Info (CONTRAST GIVEN -- Rx MONITORING) 1 each PRN DAILY PRN 04/03/19 22:00 04/05/19 21:59 Iohexol (Omnipaque 300 Mg/ml) 75 ml 1X ONCE 04/03/19 22:00 04/03/19 22:01 DC 04/03/19 22:17 75 ML Morphine Sulfate (Morphine Sulfate) 4 mg 1X ONCE 04/03/19 21:30 04/03/19 21:31 DC 04/03/19 21:40 4 MG Ondansetron HCl (Zofran Odt) 4 mg STK-MED ONCE 04/03/19 23:38 04/03/19 23:39 DC Sodium Chloride 1,000 ml @ 1,000 mls/hr 1X ONCE 04/03/19 21:30 04/03/19 22:29 DC 04/03/19 21:39 1,000 MLS/HR Allergies Allergies Allergies Coded Allergies Type Severity Reaction Last Updated Verified Penicillins Allergy Severe Anaphylaxis 03/21/19 Yes gabapentin Allergy Intermediate Hives 03/21/19 Yes tuberculin,PPD,multi-puncture Allergy Unknown 03/21/19 Yes Physical Exam Physical Exam Constitutional: The patient lying supine in hospital bed. C-collar and pelvic binder applied. [] HENT: Excoriated and crusted over lesion is noted at right anterior hairline. No bleeding, swelling, ecchymosis or laceration noted. No rhinorrhea. No otorrhea. Oropharynx moist.[] Eyes: PERRLA, EOMI, conjunctiva normal, no discharge. [] Neck: Tender to palpation midline cervical spine. Paraspinal muscles tender to palpation bilaterally. [] Cardiovascular:Heart rate regular rhythm, no murmur [] Lungs & Thorax: Bilateral breath sounds clear to auscultation [] Abdomen: Pelvic binder applied. Abdomen soft and nontender. [] Extremities: Palpation over the right clavicle as well as right humeral head. Range of motion exquisitely tender and limited to the right extremity. Pulses +2 bilaterally. Dorsalis pedis +2 bilaterally. Right hip and pelvis especially tender to palpation.[] Neurologic: Alert and oriented to person, place, month and date of . Unable to identify date. 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 Decreased sensation in the right upper extremity and lower extremity. Cranial nerves II-XII grossly intact bilaterally[] Psychologic: Affect labile, judgement normal, mood normal. [] Current Patient Data Vital Signs Vital Signs Date Time Temp Pulse Resp B/P (MAP) Pulse Ox O2 Delivery O2 Flow Rate FiO2 04/03/19 23:19 93 18 99 04/03/19 21:40 Nasal Cannula 3.0 04/03/19 20:38 98.6 125/84 (98) 98.6 Lab Values Laboratory Tests Test 04/03/19 20:40 04/03/19 22:50 White Blood Count 12.5 x10^3/uL (4.0-11.0) H Red Blood Count 4.46 x10^6/uL (3.50-5.40) Hemoglobin 13.4 g/dL (12.0-15.5) Hematocrit 40.0 % (36.0-47.0) Mean Corpuscular Volume 90 fL (79-100) Mean Corpuscular Hemoglobin 30 pg (25-35) Mean Corpuscular Hemoglobin Concent 34 g/dL (31-37) Red Cell Distribution Width 15.3 % (11.5-14.5) H Platelet Count 266 x10^3/uL (140-400) Neutrophils (%) (Auto) 51 % (31-73) Lymphocytes (%) (Auto) 37 % (24-48) Monocytes (%) (Auto) 10 % (0-9) H Eosinophils (%) (Auto) 1 % (0-3) Basophils (%) (Auto) 1 % (0-3) Neutrophils # (Auto) 6.4 x10^3uL (1.8-7.7) Lymphocytes # (Auto) 4.6 x10^3/uL (1.0-4.8) Monocytes # (Auto) 1.2 x10^3/uL (0.0-1.1) H Eosinophils # (Auto) 0.1 x10^3/uL (0.0-0.7) Basophils # (Auto) 0.1 x10^3/uL (0.0-0.2) Prothrombin Time 12.4 SEC (11.7-14.0) Prothrombin Time INR 1.0 (0.8-1.1) PTT 24 SEC (24-38) Sodium Level 138 mmol/L (136-145) Potassium Level 4.8 mmol/L (3.5-5.1) Chloride Level 101 mmol/L (98-107) Carbon Dioxide Level 30 mmol/L (21-32) Anion Gap 7 (6-14) Blood Urea Nitrogen 21 mg/dL (7-20) H Creatinine 1.2 mg/dL (0.6-1.0) H Estimated GFR (Cockcroft-Gault) 47.4 BUN/Creatinine Ratio 18 (6-20) Glucose Level 224 mg/dL (70-99) H Calcium Level 9.8 mg/dL (8.5-10.1) Magnesium Level 1.7 mg/dL (1.8-2.4) L Total Bilirubin 0.2 mg/dL (0.2-1.0) Aspartate Amino Transferase (AST) 22 U/L (15-37) Alanine Aminotransferase (ALT) 33 U/L (14-59) Alkaline Phosphatase 102 U/L (46-116) Creatine Kinase 39 U/L (26-192) Creatine Kinase MB (Mass) 0.8 ng/mL (0.0-3.6) Creatine Kinase MB Relative Index % (0-4) Troponin I Quantitative < 0.017 ng/mL (0.000-0.055) WB-Vdn-O-Type Natriuretic Peptide 14 pg/mL (0-124) Total Protein 8.6 g/dL (6.4-8.2) H Albumin 3.4 g/dL (3.4-5.0) Albumin/Globulin Ratio 0.7 (1.0-1.7) L Lipase 340 U/L (73-393) Urine Collection Type Void Urine Color Yellow Urine Clarity Clear Urine pH 7.5 Urine Specific [place] >=1.030 Urine Protein Negative mg/dL (NEG-TRACE) Urine Glucose (UA) Negative mg/dL (NEG) Urine Ketones (Stick) Negative mg/dL (NEG) Urine Blood Negative (NEG) Urine Nitrite Negative (NEG) Urine Bilirubin Negative (NEG) Urine Urobilinogen Dipstick 0.2 mg/dL (0.2 mg/dL) Urine Leukocyte Esterase Negative (NEG) Urine RBC 0 /HPF (0-2) Urine WBC 0 /HPF (0-4) Urine Squamous Epithelial Cells Many /LPF Urine Bacteria Few /HPF (0-FEW) Urine Test Negative (NEG) Laboratory Tests 04/03/19 20:40 Laboratory Tests 04/03/19 20:40 EKG EKG @2043: Normal sinus rhythm with rate of 87. Normal axis. Nonpathologic Q waves in leads I, II, and aVF. No T wave inversion. No ST segment elevation or depression.[] Radiology/Procedures Radiology/Procedures PROCEDURE: HIP RIGHT 2 VIEW Right hip 2 views. HISTORY: Right hip pain after a fall 2 views the right hip show no definite fracture or osseous abnormality. IMPRESSION: 1. No fracture noted in the right hip. Electronically signed by: Kendall Proctor MD (04/03/2019 11:45 PM) [facility][] PROCEDURE: CT HEAD AND CERVICAL SPINE [facility] Compliance Statement: One or more of the following individualized dose reduction techniques were utilized for this examination: 1. Automated exposure control 2. Adjustment of the mA and/or kV according to patient size 3. Use of iterative reconstruction technique CT head and cervical spine without contrast 04/03/2019 9:[address] chest, abdomen and pelvis with contrast INDICATION: Pain status post fall COMPARISON: Head, cervical spine, thoracic spine and lumbar spine March 26, 2019 TECHNIQUE: Multiple axial CT images of the head were obtained from skull base through the vertex without intravenous contrast. Multiple axial CT images of the cervical spine were obtained without intravenous contrast. Coronal and sagittal reformats are provided. Multiple axial CT images of the chest, abdomen and pelvis were obtained after the intravenous demonstration of 60 cc Omnipaque 300. Coronal and sagittal reformats are provided. FINDINGS: Head: Ventricles, sulci and basal cisterns are within normal limits. There is no hydrocephalus. Trammell-white matter differentiation is normal. There is no acute intracranial hemorrhage. There is no mass, mass effect or midline shift. Posterior fossa is normal in appearance. Visualized portions of the orbits are normal. Paranasal sinuses are well aerated. Mastoid air cells are well aerated. Scalp and calvaria are normal. Cervical spine: Skull base is intact. Craniocervical junction is normal in appearance. Atlantoaxial articulation is normal. Vertebral body heights are maintained without evidence for acute fracture. There is stable reversal of the normal cervical lordosis with kyphosis centered at C5-C6. There is moderate anterior marginal osteophytosis at C5-C6. Moderate disc height loss at C4-C5 and C5-C6. No significant facet arthropathy. Mild uncovertebral joint disease noted at C5-C6. At C5-C6, there is a posterior disc osteophyte complex with mild facet arthropathy and mild to moderate uncovertebral joint disease resulting in mild bilateral neuroforaminal stenosis and mild spinal canal stenosis. Findings are stable. There is no prevertebral soft tissue swelling. Thyroid gland is normal in appearance. Visualized portions of the lung apices are normal without evidence for suspicious pulmonary nodule or infiltrate. CHEST: Thyroid gland is normal in appearance. There are no pathologically enlarged lymph nodes in the axilla, mediastinum or hilar regions. Prevascular lymph node measures 7 mm. Heart size within normal limits. There is no pericardial effusion. Thoracic aorta is normal in course and caliber. Thoracic esophagus is normal in appearance. There is no acutely displaced rib fracture. Sternum is intact. Clavicles are intact. Bilateral scapula are intact. There is a 3 mm solid noncalcified pulmonary nodule in the left lower lobe (series 2, image 44). There are no pleural effusions. No pulmonary vascular congestion or pneumothorax. Mild bronchial wall thickening may be seen with bronchitis. Abdomen/pelvis: Hypoattenuation the hepatic parenchyma suggestive of hepatic steatosis. Spleen, bilateral adrenal glands, pancreas and gallbladder are normal in appearance. The abdominal aorta is normal in course and caliber. There are no pathologically enlarged lymph nodes in the abdomen and pelvis. There is no abdominal free fluid. There is no free intraperitoneal air. The kidneys enhance symmetrically. There is no suspicious renal mass. There is no hydronephrosis. There are no suspected calculi within the kidneys, ureters or urinary bladder. Small and large bowel are normal in caliber. There is no evidence for bowel obstruction. There are no pericolonic inflammatory changes. Appendix is absent. Uterus and adnexa are within normal limits. Urinary bladder is within normal limits given degree of distention. No suspicious osseous amount is identified. Pelvis is intact. Proximal femora are intact. Sacroiliac joints are well aligned. No acute fracture or malalignment involving the thoracic and lumbar spine. IMPRESSION: 1. No acute intracranial hemorrhage. 2. No acute fracture or malalignment of the cervical spine. 3. No acute traumatic abnormality involving the chest, abdomen and pelvis. 4. Solid noncalcified pulmonary nodule in the left lung base measures 3 mm. Electronically signed by: Yvette Holley MD (04/03/2019 10:38 PM) [facility] Course & Med Decision Making Course & Med Decision Making Pertinent Labs and Imaging studies reviewed. (See chart for details) Patient is a 53 year old female with psych history of schizophrenia and dissociative identity disorder who presents for evaluation following a mechanical ground level fall. She has complained of head, neck, right shoulder, right hip pain and some weakness and numbness in her right UE and LE. CT of head, neck, chest, abdomen and pelvis showed no evidence of fracture, bleed or acute process. A solitary 3mm pulmonary nodule was visualized. Patient was given a copy of the imaging report with recommendation to follow up with PCP for repeat imaging at a later date. Pain was addressed with interval improvement in ED. X-ray of right hip and right shoulder showed no evidence of osseous deformity or fracture. CBC, PT, PTT, CMP unremarkable aside from glucose of 224 and magnesium of 1.7. Troponin and CK-MB negative. Patient instructed to apply cold compresses as needed and will be provided with Rx for analgesia and muscle relaxants. Patient stable for discharge with outpatient follow-up with PCP. Discussed findings and plan with patient, who acknowledge understanding and agreement. [] Dragon Disclaimer Dragon Disclaimer This electronic medical record was generated, in whole or in part, using a voice recognition dictation system. Departure Departure Impression: Primary Impression: Fall from standing Additional Impressions: Right shoulder strain Contusion of right hip Chest wall pain Disposition: HOME, SELF-CARE Condition: STABLE Referrals: ADDI ABREU MD (PCP) Patient Instructions: Chest Wall Pain, [id number], Contusion, [id number], Fall Prevention and Home Safety, [id number]-Vyzc, Hip Pain, Shoulder Sprain Scripts Naproxen (NAPROXEN) 375 Mg Tablet 1 TAB PO TID PRN PRN for PAIN, #30 TAB Prov: LATOSHA HERNANDEZ DO 04/03/19 Orphenadrine Citrate (ORPHENADRINE CITRATE) 100 Mg Tablet.er 100 MG PO BID PRN for MUSCLE PAIN, #14 Prov: LATOSHA HERNANDEZ DO 04/03/19 Problem Qualifiers Primary Impression: Fall from standing Encounter type: initial encounter Qualified Codes: W19.XXXA - Unspecified fall, initial encounter Additional Impressions: Right shoulder strain Encounter type: initial encounter Qualified Codes: S46.911A - Strain of unspecified muscle, fascia and tendon at shoulder and upper arm level, right arm, initial encounter Contusion of right hip Encounter type: initial encounter Qualified Codes: S70.01XA - Contusion of right hip, initial encounter LATOSHA HERNANDEZ DO April 03, 2019 21:40
[2019-04-03 21:48] LABS: CALCIUM 9.8 mg/dL (8.5-10.1); CREATININE 1.2 mg/dL (0.6-1.0); GFR 47.4; POTASSIUM 4.8 mmol/L (3.5-5.1)
[2019-04-03 21:53] LABS: ALBUMIN 3.4 g/dL (3.4-5.0); ALBUMIN/GLOBULIN RATIO 0.7 (1.0-1.7); MAGNESIUM 1.7 mg/dL (1.8-2.4); TOTAL BILIRUBIN 0.2 mg/dL (0.2-1.0); TOTAL PROTEIN 8.6 g/dL (6.4-8.2)
[2019-04-03] MEDS ORDERED: CONTRAST GIVEN. MC PRN (22:00)
[2019-04-03] MEDS ORDERED: IOHEXOL 300 MG/ML 100ML VIAL. IV ONE (22:00)
[2019-04-03 22:12] LABS: CREATINE KINASE 39 U/L (26-192)
--- NOTE | 2019-04-03 22:41 | RAD ---
PQRS Compliance Statement: One or more of the following individualized dose reduction techniques were utilized for this examination: 1. Automated exposure control 2. Adjustment of the mA and/or kV according to patient size 3. Use of iterative reconstruction technique CT head and cervical spine without contrast 04/03/2019 9:[address] chest, abdomen and pelvis with contrast INDICATION: Pain status post fall COMPARISON: Head, cervical spine, thoracic spine and lumbar spine March 26, 2019 TECHNIQUE: Multiple axial CT images of the head were obtained from skull base through the vertex without intravenous contrast. Multiple axial CT images of the cervical spine were obtained without intravenous contrast. Coronal and sagittal reformats are provided. Multiple axial CT images of the chest, abdomen and pelvis were obtained after the intravenous demonstration of 60 cc Omnipaque 300. Coronal and sagittal reformats are provided. FINDINGS: Head: Ventricles, sulci and basal cisterns are within normal limits. There is no hydrocephalus. Trammell-white matter differentiation is normal. There is no acute intracranial hemorrhage. There is no mass, mass effect or midline shift. Posterior fossa is normal in appearance. Visualized portions of the orbits are normal. Paranasal sinuses are well aerated. Mastoid air cells are well aerated. Scalp and calvaria are normal. Cervical spine: Skull base is intact. Craniocervical junction is normal in appearance. Atlantoaxial articulation is normal. Vertebral body heights are maintained without evidence for acute fracture. There is stable reversal of the normal cervical lordosis with kyphosis centered at C5-C6. There is moderate anterior marginal osteophytosis at C5-C6. Moderate disc height loss at C4-C5 and C5-C6. No significant facet arthropathy. Mild uncovertebral joint disease noted at C5-C6. At C5-C6, there is a posterior disc osteophyte complex with mild facet arthropathy and mild to moderate uncovertebral joint disease resulting in mild bilateral neuroforaminal stenosis and mild spinal canal stenosis. Findings are stable. There is no prevertebral soft tissue swelling. Thyroid gland is normal in appearance. Visualized portions of the lung apices are normal without evidence for suspicious pulmonary nodule or infiltrate. CHEST: Thyroid gland is normal in appearance. There are no pathologically enlarged lymph nodes in the axilla, mediastinum or hilar regions. Prevascular lymph node measures 7 mm. Heart size within normal limits. There is no pericardial effusion. Thoracic aorta is normal in course and caliber. Thoracic esophagus is normal in appearance. There is no acutely displaced rib fracture. Sternum is intact. Clavicles are intact. Bilateral scapula are intact. There is a 3 mm solid noncalcified pulmonary nodule in the left lower lobe (series 2, image 44). There are no pleural effusions. No pulmonary vascular congestion or pneumothorax. Mild bronchial wall thickening may be seen with bronchitis. Abdomen/pelvis: Hypoattenuation the hepatic parenchyma suggestive of hepatic steatosis. Spleen, bilateral adrenal glands, pancreas and gallbladder are normal in appearance. The abdominal aorta is normal in course and caliber. There are no pathologically enlarged lymph nodes in the abdomen and pelvis. There is no abdominal free fluid. There is no free intraperitoneal air. The kidneys enhance symmetrically. There is no suspicious renal mass. There is no hydronephrosis. There are no suspected calculi within the kidneys, ureters or urinary bladder. Small and large bowel are normal in caliber. There is no evidence for bowel obstruction. There are no pericolonic inflammatory changes. Appendix is absent. Uterus and adnexa are within normal limits. Urinary bladder is within normal limits given degree of distention. No suspicious osseous amount is identified. Pelvis is intact. Proximal femora are intact. Sacroiliac joints are well aligned. No acute fracture or malalignment involving the thoracic and lumbar spine. IMPRESSION: 1. No acute intracranial hemorrhage. 2. No acute fracture or malalignment of the cervical spine. 3. No acute traumatic abnormality involving the chest, abdomen and pelvis. 4. Solid noncalcified pulmonary nodule in the left lung base measures 3 mm. Electronically signed by: Yvette Holley MD (04/03/2019 10:38 PM) [facility]
[2019-04-03 23:00] LABS: BILIRUBIN,URINE NEGATIVE (NEG); COLOR,URINE YELLOW; NITRITE,URINE NEGATIVE (NEG); PH,URINE 7.5; PROTEIN,URINE NEGATIVE (NEG-TRACE); UROBILINOGEN,URINE 0.2 mg/dL (0.2 mg/dL)
[2019-04-03 23:06] LABS: CLARITY,URINE CLEAR
[2019-04-03 23:08] LABS: BACTERIA,URINE FEW /HPF (0-FEW); RBC,URINE 0 /HPF (0-2); SQUAMOUS EPITHELIAL CELL,UR MANY /LPF; WBC,URINE 0 /HPF (0-4)
[2019-04-03 23:09] LABS: U PREG PATIENT NEGATIVE (NEG)
[2019-04-03] MEDS ORDERED: NAPR-695 PO (23:10)
[2019-04-03] MEDS ORDERED: ORPH100T PO (23:10)
[2019-04-03 23:19] VITALS: BP 139/71
[2019-04-03] MEDS ORDERED: ONDANSETRON ODT 4 MG TAB.RAPDIS. ONE (23:38)
[2019-04-03] MEDS ORDERED: ONDANSETRON ODT 4 MG TAB.RAPDIS. PO ONE (23:45)
--- NOTE | 2019-04-03 23:48 | RAD ---
Right hip 2 views. HISTORY: Right hip pain after a fall 2 views the right hip show no definite fracture or osseous abnormality. IMPRESSION: 1. No fracture noted in the right hip. Electronically signed by: Kendall Proctor MD (04/03/2019 11:45 PM) [facility]
--- NOTE | 2019-04-04 05:42 | RAD ---
Right shoulder 3 views. HISTORY: Pain after a fall 3 views were taken of the right shoulder. There is no fracture or dislocation or acute osseous abnormality. IMPRESSION: 1. No acute osseous abnormality noted in the right shoulder. Electronically signed by: Kendall Proctor MD (04/04/2019 5:39 AM) [facility]
--- NOTE | 2019-04-04 11:01 | EKG ---
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
== END 2019-04-04 01:25 | disposition home or self-care (01) ==
LOC: ER 20:35
DX: S46.911A Strain of unspecified muscle, fascia and tendon at shoulder and upper arm level, right arm, initial encounter (principal); S70.01XA Contusion of right hip, initial encounter; R42 Dizziness and giddiness; R07.89 Other chest pain; R51 Headache; M54.2 Cervicalgia; R20.0 Anesthesia of skin; E11.9 Type 2 diabetes mellitus without complications; I10 Essential (primary) hypertension; F20.9 Schizophrenia, unspecified; Z88.0 Allergy status to penicillin; Z88.7 Allergy status to serum and vaccine; Z88.8 Allergy status to other drugs, medicaments and biological substances; W18.39XA Other fall on same level, initial encounter; Y93.89 Activity, other specified; Y92.89 Other specified places as the place of occurrence of the external cause; Y99.8 Other external cause status
CPT/HCPCS: 36415; 70450; 71260; 72125; 73030; 73502; 74177; 80053; 81001; 81025; 82553; 83690; 83735; 83880; 84484; 85025; 85610; 85730; 93005; 96361; 96374; 99285; J2270; J7030; Q0162; Q9967

== ENCOUNTER 2019-04-17 10:56 | Inpatient (IN) | payer MEDICAID ==
[~2019-04-17] VITALS: Ht 165.1 cm; Wt 104.4 kg
[~2019-04-17 10:56] MED LIST changes: +NAPR-695 PO; +ORPH100T PO
--- NOTE | 2019-04-17 11:10 | RAD ---
CT HEAD INDICATION: Code stroke COMPARISON: 04/03/2019 Exposure: One or more of the following individualized dose reduction techniques were utilized for this examination: 1. Automated exposure control 2. Adjustment of the mA and/or kV according to patient size 3. Use of iterative reconstruction technique TECHNIQUE: 5 mm contiguous axial images were obtained from the skull base to the vertex in both bone and soft tissue algorithm. FINDINGS: Mild bilateral periventricular white matter hypodensities likely chronic small vessel ischemic disease. No evidence of acute intracranial hemorrhage. No extra-axial fluid collections. No mass effect or midline shift. Ventricular size is appropriate. Basal cisterns are patent. No fractures identified.Trammell-white differentiation is preserved.Globes and orbits are within normal limits. Paranasal sinuses and mastoid air cells are clear. IMPRESSION: No acute intracranial findings. Dr. Ramirez was called at 11:05 AM same day exam. Electronically signed by: Hector Cantu MD (04/17/2019 11:07 AM) [facility]
--- NOTE | 2019-04-17 11:23 | PHYS DOC ---
Past Medical History Past Medical History: Diabetes-Type II, Hypertension, Schizophrenia Additional Past Medical Histor: Borderline personality d/o, GI hemorrhage, ARF w/hypoxia Past Surgical History: , Tubal ligation Additional Past Surgical Histo: Pt reports prior "belly surgery" - unable to give details Alcohol Use: None Drug Use: None Adult General Chief Complaint Chief Complaint: NEURO SYMPTOMS/DEFICITS [facility] HPI Patient is a 53 year old female patient with history of schizophrenia and resident of assisted who brought in by EMS because of sudden onset of slurred speech and right upper and lower extremity weakness. Patient had definite weakness sudden onset of right upper and lower extremity weakness at assisted at 0955(less than an hour prior to arrival to ER) and brought in by EMS as an activation of code stroke. Patient denies chest pain and shortness of breath and complaining of pain in extremities. She has had frequent emergency room visits. Review of Systems Review of Systems Constitutional: Denies fever or chills [] Eyes: Denies change in visual acuity, redness, or eye pain [] HENT: Denies nasal congestion or sore throat [] Respiratory: Denies cough or shortness of breath [] Cardiovascular: No additional information not addressed in HPI [] GI: Denies abdominal pain, nausea, vomiting, bloody stools or diarrhea [] : Denies dysuria or hematuria [] Musculoskeletal: Denies back pain or joint pain [] Integument: Denies rash or skin lesions [] Neurologic: Denies headache,reports focal weakness and sensory changes [] Endocrine: Denies polyuria or polydipsia [] All other systems were reviewed and found to be within normal limits, except as documented in this note. Allergies Allergies Allergies Coded Allergies Type Severity Reaction Last Updated Verified Penicillins Allergy Severe Anaphylaxis 03/21/19 Yes gabapentin Allergy Intermediate Hives 03/21/19 Yes Physical Exam Physical Exam Constitutional: Well well nourished, mild distress, non-toxic appearance. [] HENT: Normocephalic, atraumatic Eyes: PERRLA, EOMI, conjunctiva normal, no discharge. [] Neck: Normal range of motion, no tenderness, supple, no stridor. [] Cardiovascular:Heart rate regular rhythm, no murmur [] Lungs & Thorax: Bilateral breath sounds clear to auscultation [] Abdomen: Bowel sounds normal, soft, no tenderness, no masses, no pulsatile masses. [] Skin: Warm, dry, no erythema, no rash. [] Back: No tenderness, no CVA tenderness. [] Extremities: No tenderness, no cyanosis, no clubbing, ROM intact, no edema. [] Neurologic: Alert and oriented X 3, no facial droop or slurred speech, no movement of right upper and lower extremity, decrease of sensation of right extremity, NIHSS-10, patient had intentional weakness of right upper and lower extremity without real palysis Psychologic: Affect normal, judgement normal, mood normal. [] Current Patient Data Vital Signs Vital Signs Date Time Temp Pulse Resp B/P (MAP) Pulse Ox O2 Delivery O2 Flow Rate FiO2 04/17/19 11:15 84 16 91 04/17/19 11:03 98.3 133/59 (83) Room Air 98.3 Lab Values Laboratory Tests Test 04/17/19 11:05 04/17/19 11:15 Glucose (Fingerstick) 220 mg/dL (70-99) H White Blood Count 9.8 x10^3/uL (4.0-11.0) Red Blood Count 4.61 x10^6/uL (3.50-5.40) Hemoglobin 13.7 g/dL (12.0-15.5) Hematocrit 41.3 % (36.0-47.0) Mean Corpuscular Volume 90 fL (79-100) Mean Corpuscular Hemoglobin 30 pg (25-35) Mean Corpuscular Hemoglobin Concent 33 g/dL (31-37) Red Cell Distribution Width 14.6 % (11.5-14.5) H Platelet Count 281 x10^3/uL (140-400) Prothrombin Time 12.5 SEC (11.7-14.0) Prothrombin Time INR 1.0 (0.8-1.1) PTT 23 SEC (24-38) L Sodium Level 139 mmol/L (136-145) Potassium Level 4.8 mmol/L (3.5-5.1) Chloride Level 104 mmol/L (98-107) Carbon Dioxide Level 27 mmol/L (21-32) Anion Gap 8 (6-14) Blood Urea Nitrogen 18 mg/dL (7-20) Creatinine 1.0 mg/dL (0.6-1.0) Estimated GFR (Cockcroft-Gault) 58.5 Glucose Level 216 mg/dL (70-99) H Calcium Level 9.7 mg/dL (8.5-10.1) Troponin I Quantitative < 0.017 ng/mL (0.000-0.055) Laboratory Tests 04/17/19 11:15 Laboratory Tests 04/17/19 11:15 EKG EKG EKG interpreted by me. EKG at 1109 showed normal sinus rhythm at rate of 78, normal [place] and QT intervals, no acute distention T-wave abnormalities. Radiology/Procedures Radiology/Procedures [address] [address] IMAGING REPORT Signed PATIENT: JOSE THOMPSON ACCOUNT: [id number] : 1965 LOCATION: ER AGE: 53 SEX: F EXAM STATUS: PRE ER ORD. PHYSICIAN: VIOLETTE SAXENA MD REASON: right-sided weakness PROCEDURE: PORTABLE CHEST 1V EXAM: CHEST 1 VIEW History: Code stroke COMPARISON: None available. TECHNIQUE: Single portable radiograph of the chest FINDINGS: The cardiac silhouette is unremarkable. The lungs are clear bilaterally. The costophrenic sulci are clear and well demarcated. IMPRESSION: No radiographic evidence of an acute cardiopulmonary process. Electronically signed by: Hector Cantu MD (04/17/2019 11:38 AM) [facility] DICTATED and SIGNED BY: HECTOR CANTU MD DATE: 04/17/[address] [address] IMAGING REPORT Signed PATIENT: JOSE THOMPSON ACCOUNT: [id number] : 1965 LOCATION: ER AGE: 53 SEX: F EXAM STATUS: PRE ER ORD. PHYSICIAN: VIOLETTE SAXENA MD REASON: SLURRED SPEECH PROCEDURE: CT CODE STROKE HEAD WO CT HEAD INDICATION: Code stroke COMPARISON: 04/03/2019 Exposure: One or more of the following individualized dose reduction techniques were utilized for this examination: 1. Automated exposure control 2. Adjustment of the mA and/or kV according to patient size 3. Use of iterative reconstruction technique TECHNIQUE: 5 mm contiguous axial images were obtained from the skull base to the vertex in both bone and soft tissue algorithm. FINDINGS: Mild bilateral periventricular white matter hypodensities likely chronic small vessel ischemic disease. No evidence of acute intracranial hemorrhage. No extra-axial fluid collections. No mass effect or midline shift. Ventricular size is appropriate. Basal cisterns are patent. No fractures identified.Trammell-white differentiation is preserved.Globes and orbits are within normal limits. Paranasal sinuses and mastoid air cells are clear. IMPRESSION: No acute intracranial findings. Dr. Saxena was called at 11:05 AM same day exam. Electronically signed by: Hector Cantu MD (04/17/2019 11:07 AM) [facility] Course & Med Decision Making Course & Med Decision Making Pertinent Labs and Imaging studies reviewed. (See chart for details) Evaluation of patient in ER showed 53-year-old female patient with history of schizophrenia brought in by EMS because of acute onset of neuro deficit. Patient had unremarkable CT head. Patient had intentional paralysed right upper and lower extremity that after few minutes gradually improved and was able to move her extremity without problem. Patient was not a candidate for TPA. After activation of code stroke Dr. Abraham presented to ER and evaluated the patient agreed with plan of care and recommended hospitalization for observation.. Patient requiring admission for further evaluation and treatment. Discussed with Dr. Nichols who is in agreement with admission. Discussed findings and plan with patient and family, who acknowledge understanding and agreement. Dragon Disclaimer Dragon Disclaimer This electronic medical record was generated, in whole or in part, using a voice recognition dictation system. Departure Departure Impression: Primary Impression: Conversion disorder with weakness or paralysis, acute episode, with psychological stressor Additional Impressions: Hyperglycemia Schizophrenia Disposition: ADMITTED INPATIENT (at 1136) Admitting Physician: Madi. Ramirez (accepted admission at 1136) Condition: IMPROVED Referrals: ADDI NICHOLS MD (PCP) NIHSS Stroke Scale NIH Stroke Scale: NIH Stroke Scale Response (Comments) Value Level of Consciousness: 0 Alert/Responsive 0 LOC Questions: 0 Answers both correctly 0 LOC Commands: 0 Performs both tasks 0 Best Gaze: 0 Normal 0 Visual: 0 No visual loss 0 Facial Palsy: 0 Normal, symmetrical 0 Motor - Left Arm 0 No drift 0 Motor - Right Arm 4 No movement 4 Motor - Left Leg 0 No drift 0 Motor: Right Leg 4 No movement 4 Limb Ataxia: 0 Absent 0 Sensory: 2 Severe to total loss 2 Best Language: 0 Normal 0 Dysathria: 0 Normal 0 Extinction and Inattention: 0 Normal 0 Total 10 Critical Care Time Critical care time was 50 minutes exclusive of procedures. Problem Qualifiers Additional Impressions: Schizophrenia Schizophrenia type: unspecified Qualified Codes: F20.9 - Schizophrenia, unspecified VIOLETTE SAXENA MD Apr 17, 2019 11:23
[2019-04-17 11:26] LABS: HEMATOCRIT 41.3 % (36.0-47.0); HEMOGLOBIN 13.7 g/dL (12.0-15.5); RED BLOOD COUNT 4.61 x10^6/uL (3.50-5.40); RED CELL DISTRIBUTION WIDTH 14.6 % (11.5-14.5); WHITE BLOOD COUNT 9.8 x10^3/uL (4.0-11.0)
--- NOTE | 2019-04-17 11:32 | PDOC2 ---
NEUROLOGY CONSULT Date of Admission Date of Admission DATE: 04/17/19 TIME: 11:24 Reason for Consult Reason for Consult: Stroke symptoms Source Source: Chart review, Patient History of Present Illness History of Present Illness The patient is a 53-year-old right-handed female resident of a psychiatric facility in [place] he went out for a smoke at about 10:30 AM and came back with inability to move the right side of her body. She claims complete weakness and anesthesia on the right side. She also complains of leg pain and headache. She has been in our emergency room several times in the past few weeks after falls with negative workup. She denies any history of stroke, seizure, or head injury. Past Medical History Cardiovascular: HTN Pulmonary: Other (respiratory fialure) GI: Diverticulosis (itis) Heme/Onc: Anemia NOS Psych: Depression, Schizophrenia, Other (PTSD, dissociative personality disorder) Renal/: Urinary Incontinence Endocrine: Diabetes, Hypothyroidism Past Surgical History Past Surgical History: No pertinent history Family History Family History: No pertinent hx Social History Social History Smoke cigarettes, disabled, no alcohol or street drugs Current Medications Current Medications Active Scripts Active Naproxen 375 Mg Tablet 1 Tab PO TID PRN PRN Orphenadrine Citrate 100 Mg Tablet.er 100 Mg PO BID PRN Mag-Oxide (Magnesium Oxide) 400 Mg Tablet 400 Mg PO TID 30 Days Levofloxacin 750 Mg Tablet 1 Tab PO DAILY 7 Days Flagyl (Metronidazole) 500 Mg Tablet 500 Mg PO TID 7 Days Reported Estradiol 1 Each Patch.tdwk 1 Each TD Novolog Mix 70-30 Flexpen Syrn (Insuln Asp Prt/Insulin Aspart) 100 Unit/1 Ml Insuln.pen 26 Unit SQ TIDAC Depakote Er (Divalproex Sodium) 250 Mg Tab.er.24h 250 Mg PO QHS Geodon (Ziprasidone Hcl) 80 Mg Capsule 200 Mg PO DAILY Divalproex Sodium Er (Divalproex Sodium) 500 Mg Tab.er.24h 1 Tab PO QHS Januvia (Sitagliptin Phosphate) 100 Mg Tablet 1 Tab PO DAILY Protonix (Pantoprazole Sodium) 20 Mg Tablet.dr 40 Mg PO DAILY Metformin Hcl 1,000 Mg Tablet 1,000 Mg PO BIDWMEALS Cough Drops (Menthol) 5 Mg Lozenge 5 Mg MM Q1HR PRN Lisinopril 20 Mg Tablet 1 Tab PO DAILY Levothyroxine Sodium 112 Mcg Tablet 112 Mcg PO DAILYAC Lantus Solostar (Insulin Glargine,Hum.rec.anlog) 100 Unit/1 Ml Insuln.pen 75 Unit SQ DAILYAC Lantus Solostar (Insulin Glargine,Hum.rec.anlog) 100 Unit/1 Ml Insuln.pen 55 Unit SQ QHS Ibuprofen 600 Mg Tablet 600 Mg PO Q8HRS PRN Docusate Sodium 100 Mg Capsule 1 Cap PO BID Docusate Sodium 100 Mg Capsule 1 Cap PO BID PRN Celexa (Citalopram Hydrobromide) 20 Mg Tablet 1 Tab PO DAILY Calcium Carbonate 400 Mg Tab.chew 500 Mg PO PRN Q2HRS PRN Lipitor (Atorvastatin Calcium) 20 Mg Tablet 20 Mg PO HS Lo-Dose Aspirin EC (Aspirin) 81 Mg Tablet.dr 81 Mg PO DAILY Duoneb 0.5-3(2.5) Mg/3 Ml (Albuterol/Ipratropium) 3 Ml Ampul.neb 3 Ml NEB BID PRN Acetaminophen 500 Mg Tablet 2 Tab PO Q4HRS PRN Prazosin Hcl 1 Mg Capsule 1 Cap PO QHS Melatonin 3 Mg Tablet 3 Mg PO QHS Allergies Allergies: Coded Allergies: Penicillins (Verified Allergy, Severe, Anaphylaxis, 03/21/19) gabapentin (Verified Allergy, Intermediate, Hives, 03/21/19) tuberculin,PPD,multi-puncture (Verified Allergy, Unknown, 03/21/19) ROS Review of System Negative for fever, chills, weight loss, shortness of breath, chest pain, indigestion, hematochezia, melena, and dysuria. Full 14-point review of systems is negative. Physical Exam Physical Examination General: Well-developed, well-nourished white female in no acute distress HEENT: Normocephalic andatraumatic. Temporal arteriespulsatile and nontender. Neck: Supple without bruit, no meningismus Musculoskeletal: Stability:see neurologic. Gait exam:see neurologic. Tone:see neurologic.Strength:see neurologic. Neurological: Mental Status:intact, orientation, memory, attention span/concentration, language, fund of knowledge: Consistent with intellectual disability, no aphasia. Cranial Nerves:Pupils equal and reactive to light, extraocular movements areintact, visual colindres are full to confrontation. Facial sensation is normal. There is no facial asymmetry. Vestibulo-ocular reflex is intact. Palate elevates and tongue protrudes in midline. All other cranial related problems are negative except as mentioned before.Reflexes:2+ and symmetric w ith flexor plantar responses. Motor:At first she does not move the right side at all. When I hold her right arm over her face she avoids hitting it every time I drop it. I finally point out to the patient this fact and then she starts moving the right arm. Then she starts moving the right leg with encouragement. Coordination:Rapid alternating movements and fine finger movements are intact on left. Gait: Not tested. Sensory:First she claims complete anesthesia on the right side. I tap on her right leg saying, "do you feel this?" and she keeps saying "no," even after I stopped the verbal cues and simply continued with the tactile cues. Images Images CT HEAD Mild bilateral periventricular white matter hypodensities likely chronic small vessel ischemic disease. No evidence of acute intracranial hemorrhage. No extra-axial fluid collections. No mass effect or midline shift. Ventricular size is appropriate. Basal cisterns are patent. No fractures identified.Trammell-white differentiation is preserved.Globes and orbits are within normal limits. Paranasal sinuses and mastoid air cells are clear. IMPRESSION: No acute intracranial findings. Assessment/Plan Assessment/Plan Impression: Conversion reaction, highly doubt that she has had a stroke. Now her strength is rapidly returning but she complains of headache, arm, and bilateral leg pains. Extensive psychiatric history as listed above. Recommendations: I discussed the risks, benefits, alternatives of giving alteplase versus not giving it including the fact that since it appears she has a "stress reaction," as I termed it to her, the benefits are less than the risk of alteplase. The patient is willing to forgo alteplase. Admit for observation with pain control MRI of the brain, but no further stroke workup unless MRI is positive. Rehabilitation screening. Thank you for letting me help with the patient's care. RAI GALLAGHER MD Apr 17, 2019 11:32
[2019-04-17 11:38] LABS: CALCIUM 9.7 mg/dL (8.5-10.1); GFR 58.5; POTASSIUM 4.8 mmol/L (3.5-5.1)
[2019-04-17] MEDS ORDERED: ASPIRIN CHEWABLE 81 MG TABLET. PO ONE (11:38)
--- NOTE | 2019-04-17 11:41 | RAD ---
EXAM: CHEST 1 VIEW History: Code stroke COMPARISON: None available. TECHNIQUE: Single portable radiograph of the chest FINDINGS: The cardiac silhouette is unremarkable. The lungs are clear bilaterally. The costophrenic sulci are clear and well demarcated. IMPRESSION: No radiographic evidence of an acute cardiopulmonary process. Electronically signed by: Hector Cantu MD (04/17/2019 11:38 AM) [facility]
[2019-04-17 11:42] LABS: PROTHROMBIN TIME PATIENT 12.5 SEC (11.7-14.0)
[2019-04-17 12:57] VITALS: BP 124/71
[2019-04-17] MEDS ORDERED: ZIPR60CA2 PO (13:35)
--- NOTE | 2019-04-17 13:50 | NUR ---
Bedside Swallow Evaluation completed. Please see full report for additional information. Impressions: Pt presents w/ functional oropharyngeal swallow for a modified diet (d/t edentulous status) and thin liquids. Pt appears at low risk of aspiration w/ modified diet w/ general swallow precautions. Pt is edentulous w/ unequal labial resting position, however presents w/ well coordinated oral motor movements allowing her to alternate smiling L/R as well as taco tongue and make a variety of "funny faces" as she joked w/ TRAUMA COORDINATOR. Recommendations: Dysphagia II diet w/ thin liquids, no straws. ST f/u 1-2 visits while stroke w/o ongoing to assess swallow safety.
[2019-04-17 15:00] VITALS: BP 140/77
[2019-04-17] MEDS ORDERED: ONDANSETRON PF 4 MG/2 ML VIAL. IV PRN (15:00)
[2019-04-17] MEDS: ACETAMINOPHEN 325 MG TABLET. PO PRN (15:08)
[2019-04-17] MEDS: metFORMIN 500 MG TABLET PO SCH (17:30)
[2019-04-17] MEDS: INSULIN LISPRO 300 UNITS/3 ML INSULN.PEN. SQ SCH (17:34)
--- NOTE | 2019-04-17 17:54 | EKG ---
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
[2019-04-17] MEDS: DOCUSATE SODIUM 100 MG CAPSULE. PO SCH (19:54)
[2019-04-17] MEDS: MAGNESIUM OXIDE 400 MG TABLET PO SCH (19:55)
[2019-04-17 20:19] VITALS: BP 126/76
[2019-04-17] MEDS ORDERED: ATORVASTATIN CALCIUM 20 MG TABLET PO SCH (21:00)
[2019-04-17] MEDS ORDERED: DIVALPROEX EXTENDED RELEASE 250 MG TAB.ER.24H. PO SCH (21:00)
[2019-04-17] MEDS ORDERED: DIVALPROEX EXTENDED RELEASE 500 MG TAB.ER.24H. PO SCH (21:00)
[2019-04-17] MEDS ORDERED: INSULIN GLARGINE 300 UNITS/3 ML INSULN.PEN. SQ SCH (21:00)
[2019-04-17] MEDS ORDERED: NON FORMULARY ITEM (Melatonin 3 MG) PO SCH (21:00)
[2019-04-17] MEDS ORDERED: PRAZOSIN 1 MG CAPSULE. PO SCH (21:00)
[2019-04-17] MEDS ORDERED: ZIPRASIDONE 60 MG CAPSULE. PO SCH (21:00)
[2019-04-18 03:25] VITALS: BP 138/77
[2019-04-18] MEDS: ACETAMINOPHEN 325 MG TABLET. PO PRN ×2 (05:03→12:14)
[2019-04-18 07:00] VITALS: BP 101/61
[2019-04-18] MEDS ORDERED: PANTOPRAZOLE 40 MG TABLET.DR. PO SCH (07:30)
[2019-04-18] MEDS ORDERED: INSULIN GLARGINE 300 UNITS/3 ML INSULN.PEN. SQ SCH (07:30)
[2019-04-18] MEDS ORDERED: LEVOTHYROXINE 112 MCG TABLET PO SCH (07:30)
[2019-04-18] MEDS ORDERED: ASPIRIN ENTERIC COATED 81 MG TABLET.DR. PO SCH ×2 (08:00→09:00)
[2019-04-18] MEDS: MAGNESIUM OXIDE 400 MG TABLET PO SCH ×2 (08:52→14:10)
[2019-04-18] MEDS: DOCUSATE SODIUM 100 MG CAPSULE. PO SCH (08:52)
[2019-04-18] MEDS: metFORMIN 500 MG TABLET PO SCH ×2 (08:52→17:05)
[2019-04-18] MEDS: INSULIN LISPRO 300 UNITS/3 ML INSULN.PEN. SQ SCH ×3 (08:57→17:09)
[2019-04-18] MEDS ORDERED: CITALOPRAM 20 MG TABLET. PO SCH (09:00)
[2019-04-18] MEDS ORDERED: LISINOPRIL 20 MG TABLET PO SCH (09:00)
[2019-04-18] MEDS ORDERED: LINAGLIPTIN 5 MG TABLET PO SCH (09:00)
[2019-04-18] MEDS ORDERED: ZIPRASIDONE PO SCH (09:00)
[2019-04-18 11:00] VITALS: BP 151/64
[2019-04-18 12:27] VITALS: BP 129/71
--- NOTE | 2019-04-18 13:33 | PDOC ---
PROGRESS NOTES Assessment Problems Medical Problems: (1) Conversion disorder with weakness or paralysis, acute episode, with psychological stressor Status: Acute (2) Hyperglycemia Status: Acute (3) Schizophrenia Status: Acute Conversion reaction, no stroke. Extensive psychiatric history Plan Okay for discharge Subjective No complaints, wants to go home Objective Vital Signs Date Time Temp Pulse Resp B/P (MAP) Pulse Ox O2 Delivery O2 Flow Rate FiO2 04/18/19 12:27 98.6 72 129/71 (90) 96 Room Air 98.6 04/18/19 11:00 16 Intake and Output 04/18/19 07:00 Intake Total 1460 ml Output Total 1300 ml Balance 160 ml Intake Oral 1460 ml Output Urine Total 1300 ml # Voids 4 # Bowel Movements 4 PHYSICAL EXAM Alert. Oriented to time, place and person. PERRL. EOMI. CN: no focal findings. Muscle tone: normal. Muscle strength: 5/5 Plantar reflex: flexor Gait: normal. Sensory exam: no abnormal findings. No cerebellar signs elicited. Review of Relevant I have reviewed the following items latrice (where applicable) has been applied. Labs Laboratory Tests Test 04/17/19 11:05 04/17/19 11:15 04/17/19 14:24 04/17/19 16:26 Glucose (Fingerstick) 220 mg/dL (70-99) 206 mg/dL (70-99) 201 mg/dL (70-99) White Blood Count 9.8 x10^3/uL (4.0-11.0) Red Blood Count 4.61 x10^6/uL (3.50-5.40) Hemoglobin 13.7 g/dL (12.0-15.5) Hematocrit 41.3 % (36.0-47.0) Mean Corpuscular Volume 90 fL (79-100) Mean Corpuscular Hemoglobin 30 pg (25-35) Mean Corpuscular Hemoglobin Concent 33 g/dL (31-37) Red Cell Distribution Width 14.6 % (11.5-14.5) Platelet Count 281 x10^3/uL (140-400) Prothrombin Time 12.5 SEC (11.7-14.0) Prothromb Time International Ratio 1.0 (0.8-1.1) Activated Partial Thromboplast Time 23 SEC (24-38) Sodium Level 139 mmol/L (136-145) Potassium Level 4.8 mmol/L (3.5-5.1) Chloride Level 104 mmol/L (98-107) Carbon Dioxide Level 27 mmol/L (21-32) Anion Gap 8 (6-14) Blood Urea Nitrogen 18 mg/dL (7-20) Creatinine 1.0 mg/dL (0.6-1.0) Estimated GFR (Cockcroft-Gault) 58.5 Glucose Level 216 mg/dL (70-99) Calcium Level 9.7 mg/dL (8.5-10.1) Troponin I Quantitative < 0.017 ng/mL (0.000-0.055) Test 04/17/19 19:54 04/17/19 21:00 04/18/19 07:14 04/18/19 12:08 Glucose (Fingerstick) 204 mg/dL (70-99) 169 mg/dL (70-99) 157 mg/dL (70-99) 149 mg/dL (70-99) Laboratory Tests Test 04/17/19 14:24 04/17/19 16:26 04/17/19 19:54 04/17/19 21:00 Glucose (Fingerstick) 206 mg/dL (70-99) 201 mg/dL (70-99) 204 mg/dL (70-99) 169 mg/dL (70-99) Test 04/18/19 07:14 04/18/19 12:08 Glucose (Fingerstick) 157 mg/dL (70-99) 149 mg/dL (70-99) Medications Current Medications Aspirin (Children'S Aspirin) 81 mg 1X ONCE PO Last administered on 04/17/19at 12:23; Start 04/17/19 at 11:38; Stop 04/17/19 at 11:39; Status DC Aspirin (Ecotrin) 81 mg DAILYWBKFT PO Last administered on 04/18/19at 08:52; Start 04/18/19 at 08:00 Acetaminophen (Tylenol) 650 mg PRN Q4HRS PRN PO mild pain Last administered on 04/18/19at 12:14; Start 04/17/19 at 15:00 Ondansetron HCl (Zofran) 4 mg PRN Q4HRS PRN IV NAUSEA/VOMITING Last administered on 04/17/19at 15:08; Start 04/17/19 at 15:00 Aspirin (Ecotrin) 81 mg DAILY PO ; Start 04/18/19 at 09:00; Status UNV Atorvastatin Calcium (Lipitor) 20 mg HS PO Last administered on 04/17/19 19:56; Start 04/17/19 at 21:00 Citalopram Hydrobromide (CeleXA) 20 mg DAILY PO Last administered on 04/18/19 08:52; Start 04/18/19 at 09:00 Divalproex Sodium (Depakote Er) 750 mg QHS PO Last administered on 04/17/19 19:56; Start 04/17/19 at 21:00 Divalproex Sodium (Depakote Er) 500 mg QHS PO ; Start 04/17/19 at 21:00; Status UNV Docusate Sodium (Colace) 100 mg BID PO Last administered on 04/18/19 08:52; Start 04/17/19 at 21:00 Insulin Glargine (Lantus) 55 units QHS SQ Last administered on 04/17/19 20:00; Start 04/17/19 at 21:00 Insulin Glargine (Lantus) 75 units DAILYAC SQ Last administered on 04/18/19 08:56; Start 04/18/19 at 07:30 Levothyroxine Sodium (Synthroid) 112 mcg DAILYAC PO Last administered on 04/18/19 08:52; Start 04/18/19 at 07:30 Lisinopril (Prinivil) 20 mg DAILY PO Last administered on 04/18/19 08:52; Start 04/18/19 at 09:00 Insulin Human Lispro (HumaLOG) 26 units TIDWMEALS SQ Last administered on 04/18/19 12:18; Start 04/17/19 at 17:00 Magnesium Oxide (Magnesium Oxide) 400 mg TID PO Last administered on 04/18/19 08:52; Start 04/17/19 at 21:00 Non-Formulary Medication (Melatonin ) 3 mg QHS PO ; Start 04/17/19 at 21:00; Status UNV Metformin HCl (Glucophage) 1,000 mg BIDWMEALS PO Last administered on 04/18/19 08:52; Start 04/17/19 at 17:00 Pantoprazole Sodium (Protonix) 40 mg DAILYAC PO Last administered on 04/18/19at 08:52; Start 04/18/19 at 07:30 Prazosin HCl (Minipress) 1 mg QHS PO Last administered on 04/17/19at 19:55; Start 04/17/19 at 21:00 Linagliptin (Tradjenta) 5 mg DAILY PO Last administered on 04/18/19at 08:52; Start 04/18/19 at 09:00 Ziprasidone (Geodon) 120 mg QHS PO Last administered on 04/17/19at 19:55; Start 04/17/19 at 21:00 Non-Formulary Medication (Ziprasidone Hcl (Geodon)) 200 mg DAILY PO ; Start 04/18/19 at 09:00; Status UNV Active Scripts Active Mag-Oxide (Magnesium Oxide) 400 Mg Tablet 400 Mg PO TID 30 Days Reported Geodon (Ziprasidone Hcl) 60 Mg Capsule 2 Cap PO DAILY Estradiol 1 Each Patch.tdwk 1 Each TD Novolog Mix 70-30 Flexpen Syrn (Insuln Asp Prt/Insulin Aspart) 100 Unit/1 Ml Insuln.pen 26 Unit SQ TIDAC Depakote Er (Divalproex Sodium) 250 Mg Tab.er.24h 250 Mg PO QHS Geodon (Ziprasidone Hcl) 80 Mg Capsule 200 Mg PO DAILY Divalproex Sodium Er (Divalproex Sodium) 500 Mg Tab.er.24h 1 Tab PO QHS Januvia (Sitagliptin Phosphate) 100 Mg Tablet 1 Tab PO DAILY Protonix (Pantoprazole Sodium) 20 Mg Tablet.dr 40 Mg PO DAILY Metformin Hcl 1,000 Mg Tablet 1,000 Mg PO BIDWMEALS Lisinopril 20 Mg Tablet 1 Tab PO DAILY Levothyroxine Sodium 112 Mcg Tablet 112 Mcg PO DAILYAC Lantus Solostar (Insulin Glargine,Hum.rec.anlog) 100 Unit/1 Ml Insuln.pen 75 Unit SQ DAILYAC Lantus Solostar (Insulin Glargine,Hum.rec.anlog) 100 Unit/1 Ml Insuln.pen 55 Unit SQ QHS Docusate Sodium 100 Mg Capsule 1 Cap PO BID Celexa (Citalopram Hydrobromide) 20 Mg Tablet 1 Tab PO DAILY Lipitor (Atorvastatin Calcium) 20 Mg Tablet 20 Mg PO HS Lo-Dose Aspirin EC (Aspirin) 81 Mg Tablet.dr 81 Mg PO DAILY Prazosin Hcl 1 Mg Capsule 1 Cap PO QHS Melatonin 3 Mg Tablet 3 Mg PO QHS Vitals/I & O Vital Sign - Last 24 Hours 04/17/19 04/17/19 04/17/19 04/17/19 15:00 19:00 19:55 20:00 Temp 97.6 97.6 Pulse 92 92 Resp 17 B/P (MAP) 140/77 (98) 140/77 Pulse Ox 94 O2 Delivery Room Air Room Air Room Air 04/17/19 04/17/19 04/18/19 04/18/19 20:19 23:59 03:25 07:00 Temp 98.2 98.8 98.2 98.2 98.8 98.2 Pulse 67 93 57 Resp 16 18 16 16 B/P (MAP) 126/76 (93) 138/77 (97) 101/61 (74) Pulse Ox 90 91 93 O2 Delivery Room Air Room Air Room Air Room Air 04/18/19 04/18/19 04/18/19 04/18/19 08:00 08:52 11:00 12:27 Temp 97.9 98.6 97.9 98.6 Pulse 57 76 72 Resp 16 B/P (MAP) 101/61 151/64 (93) 129/71 (90) Pulse Ox 97 96 O2 Delivery Room Air Room Air Room Air Intake and Output 04/17/19 04/17/19 04/18/19 15:00 23:00 07:00 Intake Total 800 ml 660 ml Output Total 1300 ml Balance 800 ml -640 ml Images MRI images reviewed, no acute disease, radiology interpretation pending RAI GALLAGHER MD Apr 18, 2019 13:33
[2019-04-18 15:00] VITALS: BP 118/65
--- NOTE | 2019-04-18 15:50 | SNU/HH DC ---
DISCHARGE ORDERS DISCHARGE INFORMATION: DISCHARGE DATE: Apr 18, 2019 FINAL DIAGNOSIS Problems Medical Problems: (1) Conversion disorder with weakness or paralysis, acute episode, with psychological stressor Status: Acute (2) Hyperglycemia Status: Acute (3) Schizophrenia Status: Acute CONDITION ON DISCHARGE: Stable CODE STATUS: Code Status: Full SHELTER: SNF STAY <30 DAYS: No POST DISCHARGE ORDERS: ACTIVITY ORDERS: Activity as tolerated WEIGHT BEARING STATUS: As tolerated DIET AFTER DISCHARGE: ADA CHECKS AFTER DISCHARGE: CHECKS AFTER DISCHARGE: Check blood sugar, ac/hs TREATMENT/EQUIPMENT ORDERS: ADAPTIVE EQUIPMENT NEEDED: None Physical Therapy For: Evalulation/Treatment Occupational Therapy For: Evaluation/Treatment DISCHARGE MEDICATIONS: Home Meds Active Scripts Magnesium Oxide (MAG-OXIDE) 400 Mg Tablet, 400 MG PO TID for HYPOMAGNESEMIA for 30 Days, #90 TAB 5 Refills Prov:ADDI ABREU MD 03/24/19 Reported Medications Ziprasidone Hcl (GEODON) 60 Mg Capsule, 2 CAP PO DAILY for Bipolar, #60 CAP 1 Refill 04/17/19 Estradiol (ESTRADIOL) 1 Each Patch.tdwk, 1 EACH TD, PATCH 03/23/19 Insuln Asp Prt/Insulin Aspart (NOVOLOG MIX 70-30 FLEXPEN SYRN) 100 Unit/1 Ml Insuln.pen, 26 UNIT SQ TIDAC, SYR 03/23/19 Divalproex Sodium (DEPAKOTE ER) 250 Mg Tab.er.24h, 250 MG PO QHS for 750 MG TOTAL, TAB.SR 03/23/19 Ziprasidone Hcl (GEODON) 80 Mg Capsule, 200 MG PO DAILY for BIPOLAR, CAP 03/22/19 Divalproex Sodium (DIVALPROEX SODIUM ER) 500 Mg Tab.er.24h, 1 TAB PO QHS for SEIZURES, #60 TAB 03/22/19 Sitagliptin Phosphate (JANUVIA) 100 Mg Tablet, 1 TAB PO DAILY for DIABETES, #30 TAB 5 Refills 03/22/19 Pantoprazole Sodium (PROTONIX) 20 Mg Tablet.dr, 40 MG PO DAILY for GERD, TAB 03/22/19 Metformin Hcl (METFORMIN HCL) 1,000 Mg Tablet, 1000 MG PO BIDWMEALS for GLUCOSE, TAB 03/22/19 Lisinopril (LISINOPRIL) 20 Mg Tablet, 1 TAB PO DAILY for HYPERTENSION, #30 TAB 5 Refills 03/22/19 Levothyroxine Sodium (LEVOTHYROXINE SODIUM) 112 Mcg Tablet, 112 MCG PO DAILYAC for GLUCOSE, #30 TAB 0 Refills 03/22/19 Insulin Glargine,Hum.rec.anlog (LANTUS SOLOSTAR) 100 Unit/1 Ml Insuln.pen, 75 UNIT SQ DAILYAC for GLUCOSE, #15 ML 3 Refills 03/22/19 Insulin Glargine,Hum.rec.anlog (LANTUS SOLOSTAR) 100 Unit/1 Ml Insuln.pen, 55 UNIT SQ QHS for GLUCOSE, #15 ML 3 Refills 03/22/19 Docusate Sodium (DOCUSATE SODIUM) 100 Mg Capsule, 1 CAP PO BID for CONSTIPATION, #30 CAP 03/22/19 Citalopram Hydrobromide (CELEXA) 20 Mg Tablet, 1 TAB PO DAILY for ANTIDEPRESSANT , #90 TAB 3 Refills 03/22/19 Atorvastatin Calcium (LIPITOR) 20 Mg Tablet, 20 MG PO HS for CHOLESTEROL, #30 TAB 0 Refills 03/22/19 Aspirin (Lo-Dose Aspirin EC) 81 Mg Tablet.dr, 81 MG PO DAILY for BLOOD THINNER, TAB.SR 03/22/19 Prazosin Hcl (PRAZOSIN HCL) 1 Mg Capsule, 1 CAP PO QHS for HYPERTENSION, #30 CAP 2 Refills 03/22/19 Melatonin (MELATONIN) 3 Mg Tablet, 3 MG PO QHS for SLEEP, TAB 03/22/19 ADDI ABREU MD Apr 18, 2019 15:50
--- NOTE | 2019-04-18 16:19 | DS ---
DATE OF DISCHARGE: 04/18/2019 HOSPITAL COURSE: The patient is a 53-year-old female patient, a resident at [facility] in [place], who was sent to the Emergency Room with a complaint of right-sided weakness. She was extensively evaluated, has had a CT scan of the head, which was unremarkable. She was seen in consultation by Dr. Torrez who recommended against tPA and was admitted for observation. She has had an MRI of the brain, which showed no evidence of stroke. When I saw her this morning, she was awake, alert, moving all extremities without difficulty, has no problem swallowing and was able to walk with a walker and therefore a decision was made to discharge her back to [facility] at [place]. PHYSICAL EXAMINATION: GENERAL: When I saw her, she looked well and was clearly in no apparent respiratory distress. No pallor, jaundice, cyanosis, or thyromegaly. No jugular venous distension. No limb edema. VITAL SIGNS: Her heart rate was 72, blood pressure 118/65, temperature was 98, respiratory rate was 16, and oxygen saturation was 98%. HEAD, EYES, EARS, NOSE AND THROAT: Normocephalic, atraumatic. NECK: Supple. HEART: Showed normal first and second heart sounds. No gallop, rub or murmur. CHEST: Clear to auscultation. No crepitation or rhonchi. ABDOMEN: Distended, soft, nontender. NEUROLOGICAL: She is awake, alert, responding appropriately. All cranial nerves intact. She moves extremities without difficulty. She ambulates with a walker without difficulty or assistance. LABORATORY DATA: Showed a white cell count 9800, hemoglobin 13.7, hematocrit 41, MCV 90, and platelet count 281,000. Her serum sodium was 139, potassium 4.8, chloride 104, bicarbonate 27, anion gap of 8, BUN 18, creatinine 1, estimated GFR was 58 mL per minute, calcium was 9.1. DISCHARGE MEDICATIONS: [facility] to continue on linagliptin 5 mg once a day, lisinopril 20 mg once a day, citalopram hydrobromide 20 mg daily, aspirin 81 mg once a day, Protonix 40 mg daily, levothyroxine 112 mcg once a day. She is on Lantus insulin 75 units daily, ziprasidone 120 mg at bedtime, prazosin 1 mg at bedtime, magnesium oxide 400 mg 3 times a day, Lantus insulin 55 units at bedtime, Colace 100 mg twice a day, divalproex 750 mg at bedtime, atorvastatin calcium 20 mg at bedtime, metformin 1000 mg twice a day, Humalog insulin 25 units 3 times a day, ondansetron 4 mg every 4 hours and Tylenol 650 mg every 4 hours. FINAL DISCHARGE DIAGNOSES: Conversion disorder with weakness or paralysis, acute episode with psychological stressor. Her CT scan and MRI showed no evidence of any stroke. Type 2 diabetes mellitus, schizophrenia, borderline personality and posttraumatic stress disorder, hypothyroidism, hypertension. ADDI ABREU MD DR: EDU/sundar JOB#: [id number] / [id number]
--- NOTE | 2019-04-18 18:45 | NUR ---
Spoke with [employer] transport and they stated they are leaving [place] and heading to [place] to product picker the patient. Report called to CHEMA Faith at [facility]. All belongings are packed up with patient. Peripheral IV's removed, refrigeration tech removed.
--- NOTE | 2019-04-18 19:59 | HP ---
ADMIT DATE: 04/17/2019 HISTORY OF PRESENT ILLNESS: The patient is a 53-year-old female patient, a resident at [facility] in [place], who apparently complained to the nursing staff there of sudden onset of slurred speech and right upper and lower extremity weakness and therefore the patient was sent to the Emergency Room of [facility] as a code stroke. She denied chest pain, denied any shortness of breath. She was extensively investigated in the Emergency Room. Her EKG showed that she was in sinus rhythm at a rate of 78 per minute with normal MT interval and QT intervals. No ST segment elevation abnormalities. Her chest x-ray was unremarkable. CT scan of the head showed that the patient has mild bilateral periventricular white matter hypodensities, likely chronic small vessel ischemic disease, no evidence of acute intracranial hemorrhage, no extraaxial fluid collection, no mass effect or midline shift. Ventricular size is appropriate. Basilar cisterns are patent. No fracture identified. Trammell-white differentiation is preserved. Globes and orbits are within normal limits. Paranasal sinuses and mastoid air cells are clear. Dr. Torrez was consulted and he did not consider her a candidate for TPA, but he recommended hospitalization for observation. He did not recommend any further stroke workup except an MRI. PAST MEDICAL HISTORY: Significant for type 2 diabetes mellitus, hypertension, hypothyroidism, hyperlipidemia. She has history of lower GI bleed and blood loss anemia, tobacco abuse, borderline personality, schizophrenia, bipolar disorder, and posttraumatic stress disorder. PAST SURGICAL HISTORY: Significant for multiple C-sections, appendectomy. ALLERGIES: SHE IS ALLERGIC TO GABAPENTIN, APLISOL, AND PENICILLIN. FAMILY HISTORY: Unremarkable, has 1 older sister who is healthy and her DPOA. SOCIAL HISTORY: She used to live alone. She is on disability. She smokes a pack a day. Does not drink alcohol or use any recreational drugs. She has 4 sons. She currently resides at [facility]. REVIEW OF SYSTEMS: As per history of present illness. PHYSICAL EXAMINATION: GENERAL: On arrival to the Emergency Room, she looked well and was clearly in no apparent respiratory distress, slightly pale, but no jaundice or cyanosis. No lymphadenopathy, no thyromegaly. No jugular venous distension. No lower limb edema. VITAL SIGNS: Her heart rate was 75, blood pressure was 133/59, temperature was 98.3, respiratory rate was 12, and oxygen saturation was 93% on room air. HEAD, EYES, EARS, NOSE, AND THROAT: Showed normocephalic, atraumatic. NECK: Supple. HEART: Showed normal first and second heart sounds with no gallop, rub, or murmur. CHEST: Clear to auscultation. No crepitation or rhonchi. ABDOMEN: Distended, soft, nontender. No guarding or rigidity. No organomegaly. All hernial orifices were intact. Bowel sounds normal. NEUROLOGIC: She was alert, oriented x 3 with no facial droop or slurred speech. No movement of the right upper and lower extremities, decreased sensation in the right extremity. The patient had intentional weakness of the right upper and lower extremities without real paralysis. LABORATORY DATA: Her lab work showed that her white cell count was 9800, hemoglobin 13.47, hematocrit 41, MCV 90, and platelet count 281,000. Serum sodium was 139, potassium 4.8, chloride 104, bicarbonate 27, anion gap of 8, BUN 18, creatinine 1, estimated GFR was 68 mL per minute. Her glucose 269, calcium was 9.7. Her prothrombin time was 12.5, INR 1, aPTT was 23. DIAGNOSTIC DATA: She apparently had had a CT scan of the head without contrast, which showed no acute intracranial finding. Her chest x-ray showed the cardiac silhouette is unremarkable. The lungs are clear bilaterally. The costophrenic sulci are clear and well demarcated. ASSESSMENT AND PLAN: The patient came within the window for TPA; however, she was evaluated by Dr. Torrez who recommended against TPA. However, he recommended admission and MRI of the brain, but no further stroke workup unless MRI is positive. We did consult Physical and Occupational Therapy to evaluate and treat. ADDI ABREU MD DR: EDU/sundar JOB#: [id number] / [id number]
--- NOTE | 2019-04-19 12:03 | RAD ---
MRI of the brain without contrast 04/18/2019 Clinical History: Right-sided paralysis and anesthesia. Technique: Unenhanced T1-weighted sagittal and axial, T2-weighted axial and coronal and FLAIR, gradient echo and diffusion-weighted axial images of the brain were obtained. Findings: Comparison is made to patient's CT scan of the head dated 04/17/2019. Images throughout the study are degraded by patient motion. There is generalized parenchymal atrophy. Patchy and a few small scattered areas of increased signal intensity are seen within the periventricular and subcortical white matter of both cerebral hemispheres on the FLAIR and T2-weighted images consistent with areas of minimal small vessel ischemic disease. No acute parenchymal abnormality is seen. No extra-axial fluid collection is seen. There is no MRI evidence of acute ischemia/infarction. Mild mucosal thickening in seen scattered throughout the paranasal sinuses. There is a small left mastoid effusion. Normal flow voids are seen within the major vascular structures surrounding the brain parenchyma. Impression: No acute parenchymal abnormality is seen. Electronically signed by: Luigi Dumas MD (04/19/2019 12:00 PM) [facility]
== END 2019-04-18 19:15 | disposition home or self-care (01) | DRG 880 ==
LOC: ER 10:56 → 6 SOUTH 11:20
PROVIDERS: ADMIT Internal Medicine; ATTEND Internal Medicine
DX: F44.4 Conversion disorder with motor symptom or deficit (principal); E11.65 Type 2 diabetes mellitus with hyperglycemia; F20.9 Schizophrenia, unspecified; F60.3 Borderline personality disorder; I10 Essential (primary) hypertension; E03.9 Hypothyroidism, unspecified; E78.5 Hyperlipidemia, unspecified; F31.9 Bipolar disorder, unspecified; F43.10 Post-traumatic stress disorder, unspecified; F17.210 Nicotine dependence, cigarettes, uncomplicated; K57.90 Diverticulosis of intestine, part unspecified, without perforation or abscess without bleeding; Z98.891 History of uterine scar from previous surgery; Z98.51 Tubal ligation status; Z88.0 Allergy status to penicillin; Z88.8 Allergy status to other drugs, medicaments and biological substances
CPT/HCPCS: 36415; 70450; 70551; 71045; 80048; 82962; 84484; 85027; 85610; 85730; 87641; 93005; 99291; 99406; J1815; J2405; 92610

== ENCOUNTER 2019-05-28 12:22 | Emergency (ER) | payer MEDICAID ==
[~2019-05-28] VITALS: Ht 167.6 cm; Wt 104.3 kg
[~2019-05-28 12:22] MED LIST changes: +ZIPR60CA2 PO
--- NOTE | 2019-05-28 12:40 | PHYS DOC ---
Past Medical History Past Medical History: Anemia, Diabetes-Type II, Hypertension, Hypothyroid, Schizophrenia, Other Additional Past Medical Histor: Borderline personality, GI hemorrhage, ARF w/hypoxia, PSYCHOSIS Past Surgical History: , Tubal ligation, Other Additional Past Surgical Histo: Pt reports prior "belly surgery" - unable to give details Additional Information: 0.25 PPD Alcohol Use: None Drug Use: None Adult General Chief Complaint Chief Complaint: MECHANICAL FALL HPI HPI Patient is a 54 year old female resident of intermediate with history of schizophrenia and frequent emergency room visits who brought in by EMS because of fall and left hip pain. Patient states she had the following bathroom and complaining of left hip pain and rated her pain as a severe pain. EMS reported that patient have any lower extremity shortening or external rotation and was able to fall asleep inside of the ambulance. Patient has history of malingering previously. Review of Systems Review of Systems Constitutional: Denies fever or chills [] Eyes: Denies change in visual acuity, redness, or eye pain [] HENT: Denies nasal congestion or sore throat [] Respiratory: Denies cough or shortness of breath [] Cardiovascular: No additional information not addressed in HPI [] GI: Denies abdominal pain, nausea, vomiting, bloody stools or diarrhea [] : Denies dysuria or hematuria [] Musculoskeletal: Denies back pain, reports joint pain [] Integument: Denies rash or skin lesions [] Neurologic: Denies headache, focal weakness or sensory changes [] Endocrine: Denies polyuria or polydipsia [] All other systems were reviewed and found to be within normal limits, except as documented in this note. Current Medications Current Medications Current Medications Medications (Trade) Dose Ordered Sig/Mickie Start Time Stop Time Status Last Admin Dose Admin Acetaminophen (Tylenol) 650 mg 1X ONCE 05/28/19 13:30 05/28/19 13:31 DC 05/28/19 14:13 650 MG Allergies Allergies Allergies Coded Allergies Type Severity Reaction Last Updated Verified Penicillins Allergy Severe Anaphylaxis 03/21/19 Yes pineapple Allergy Severe Rash 04/17/19 Yes gabapentin Allergy Intermediate Hives 03/21/19 Yes tuberculin,PPD,multi-puncture Allergy Intermediate 04/17/19 Yes Physical Exam Physical Exam Constitutional: Well nourished, no acute distress, non-toxic appearance. [] HENT: Normocephalic, atraumatic Eyes: PERRLA, EOMI, conjunctiva normal, no discharge. [] Neck: Normal range of motion, no tenderness, supple, no stridor. [] Cardiovascular:Heart rate regular rhythm, no murmur [] Lungs & Thorax: Bilateral breath sounds clear to auscultation [] Abdomen: Bowel sounds normal, soft, no tenderness, no masses, no pulsatile masses. [] Skin: Warm, dry, no erythema, no rash. [] Back: No tenderness, no CVA tenderness. [] Extremities: Left hip without sign of injury or external rotation or shortening, normal range of motion, no tenderness, no cyanosis, no clubbing, ROM intact, no edema. [] Neurologic: Alert and oriented , normal motor function, normal sensory function, no focal deficits noted. [] Current Patient Data Vital Signs Vital Signs Date Time Temp Pulse Resp B/P (MAP) Pulse Ox O2 Delivery O2 Flow Rate FiO2 05/28/19 12:22 97.7 86 20 115/64 (81) 94 Room Air 97.7 EKG EKG [] Radiology/Procedures Radiology/Procedures [facility] [address] [place] [address] IMAGING REPORT Signed PATIENT: JOSE THOMPSON ACCOUNT: [id number] : 1965 LOCATION: ER AGE: 54 SEX: F EXAM STATUS: REG ER ORD. PHYSICIAN: VIOLETTE SAXENA MD REASON: injury and left hip pain from fall PROCEDURE: HIP LEFT 2V WITH PELVIS HIP LEFT 2V WITH PELVIS History: Left hip pain after a fall. Comparison: None FINDINGS: No evidence of an acute fracture. No bone destruction. Joints and soft tissues appear intact. IMPRESSION: No evidence of acute fracture. Consider MRI for follow-up examination if symptoms do not improve. Electronically signed by: Esequiel Weinstein MD (05/28/2019 1:50 PM) [id number] DICTATED and SIGNED BY: ESEQUIEL WEINSTEIN MD DATE: 05/28/19 5911 Course & Med Decision Making Course & Med Decision Making Pertinent Imaging studies reviewed. (See chart for details) Evaluation of patient in ER showed 54-year-old female patient with history of schizophrenia or frequent emergency room visits brought in by EMS because of an witnessed fall and complaining of pain in left hip. Patient had unremarkable physical exam and x-ray and was able to participate in ER. Plan discharge patient to the intermediate with fall precaution. Dragon Disclaimer Dragon Disclaimer This electronic medical record was generated, in whole or in part, using a voice recognition dictation system. Departure Departure Impression: Primary Impression: Injury of left hip Additional Impressions: Schizophrenia Fall at intermediate Disposition: 01 HOME, SELF-CARE (to the intermediate at 1322) Condition: STABLE Referrals: ADDI ABREU MD (PCP) Patient Instructions: Fall Prevention and Home Safety, Hip Injury Additional Instructions: Continue current medication Follow-up with your primary care physician in 3-5 days Return to ER if not getting better Problem Qualifiers Primary Impression: Injury of left hip Encounter type: initial encounter Qualified Codes: S79.912A - Unspecified injury of left hip, initial encounter Additional Impressions: Schizophrenia Schizophrenia type: unspecified Qualified Codes: F20.9 - Schizophrenia, unspecified Fall at intermediate Encounter type: subsequent encounter Qualified Codes: W19.XXXD - Unspecified fall, subsequent encounter; Y92.129 - Unspecified place in intermediate as the place of occurrence of the external cause VIOLETTE SAXENA MD May 28, 2019 12:40
[2019-05-28] MEDS ORDERED: ACETAMINOPHEN 325 MG TABLET. PO ONE (13:30)
--- NOTE | 2019-05-28 14:03 | RAD ---
HIP LEFT 2V WITH PELVIS History: Left hip pain after a fall. Comparison: None FINDINGS: No evidence of an acute fracture. No bone destruction. Joints and soft tissues appear intact. IMPRESSION: No evidence of acute fracture. Consider MRI for follow-up examination if symptoms do not improve. Electronically signed by: Esequiel Weinstein MD (05/28/2019 1:50 PM) [id number]
[2019-05-28 16:21] VITALS: BP 117/66
== END 2019-05-28 16:41 | disposition home or self-care (01) ==
LOC: ER 12:22
DX: S79.812A Other specified injuries of left hip, initial encounter (principal); F20.9 Schizophrenia, unspecified; E11.9 Type 2 diabetes mellitus without complications; I10 Essential (primary) hypertension; E03.9 Hypothyroidism, unspecified; F17.200 Nicotine dependence, unspecified, uncomplicated; Z98.890 Other specified postprocedural states; Z98.51 Tubal ligation status; Z88.0 Allergy status to penicillin; Z88.8 Allergy status to other drugs, medicaments and biological substances; Z91.018 Allergy to other foods; Z91.09 Other allergy status, other than to drugs and biological substances; W18.39XA Other fall on same level, initial encounter; Y93.89 Activity, other specified; Y92.129 Unspecified place in nursing home as the place of occurrence of the external cause; Y99.8 Other external cause status
CPT/HCPCS: 73502; 99284

== ENCOUNTER 2019-07-17 22:25 | Inpatient (IN) | payer MEDICAID ==
[~2019-07-17] VITALS: Ht 162.6 cm; Wt 105.7 kg
[~2019-07-17 22:25] MED LIST changes: +CALC500T31 PO; +LEVO150T PO; -MELA3TAB2 PO; +MELA3TAB56 PO
[2019-07-17 22:46] LABS: BASO # 0.2 x10^3/uL (0.0-0.2); BASO % 2 % (0-3); EOS # 0.2 x10^3/uL (0.0-0.7); EOS % 2 % (0-3); HEMATOCRIT 37.7 % (36.0-47.0); HEMOGLOBIN 12.4 g/dL (12.0-15.5); LYMPH # 3.5 x10^3/uL (1.0-4.8); LYMPH % 31 % (24-48); MEAN CORPUSCULAR HEMOGLOBIN 29 pg (25-35); MEAN CORPUSCULAR HGB CONC 33 g/dL (31-37); MEAN CORPUSCULAR VOLUME 89 fL (79-100); MONO # 1.1 x10^3/uL (0.0-1.1); MONO % 10 % (0-9); NEUT # 6.4 x10^3/uL (1.8-7.7); NEUT % 56 % (31-73); PLATELET COUNT 257 x10^3/uL (140-400); RED BLOOD COUNT 4.23 x10^6/uL (3.50-5.40); RED CELL DISTRIBUTION WIDTH 14.6 % (11.5-14.5); WHITE BLOOD COUNT 11.4 x10^3/uL (4.0-11.0)
[2019-07-17 22:55] LABS: PROTHROMBIN TIME PATIENT 12.4 SEC (11.7-14.0)
[2019-07-17] MEDS ORDERED: KETOROLAC 15 MG/ML VIAL. IV ONE (23:00)
[2019-07-17] MEDS ORDERED: ONDANSETRON PF 4 MG/2 ML VIAL. IV ONE (23:00)
[2019-07-17] MEDS ORDERED: IV NORMAL SALINE 1000ML BAG 1,000 ML IV ONE (23:00)
[2019-07-17] MEDS ORDERED: FAMOTIDINE 20 MG/2 ML VIAL IVP ONE (23:00)
[2019-07-17] MEDS ORDERED: fentaNYL PF VIAL 100 MCG/2 ML VIAL IV ONE (23:30)
[2019-07-17 23:39] LABS: BILIRUBIN,URINE NEGATIVE (NEG); CLARITY,URINE CLEAR; COLOR,URINE YELLOW; NITRITE,URINE NEGATIVE (NEG); PROTEIN,URINE NEGATIVE (NEG-TRACE); UROBILINOGEN,URINE 0.2 mg/dL (0.2 mg/dL)
[2019-07-17 23:43] LABS: SQUAMOUS EPITHELIAL CELL,UR MOD /LPF
[2019-07-17 23:44] LABS: BACTERIA,URINE 0 /HPF (0-FEW); RBC,URINE 0 /HPF (0-2); WBC,URINE RARE /HPF (0-4)
[2019-07-17 23:53] LABS: VAL ACID 18 mcg/mL (50-100)
[2019-07-17 23:56] LABS: ALBUMIN 3.2 g/dL (3.4-5.0); ALBUMIN/GLOBULIN RATIO 0.6 (1.0-1.7); CALCIUM 9.5 mg/dL (8.5-10.1); CREATININE 1.1 mg/dL (0.6-1.0); GFR 52.2; MAGNESIUM 1.4 mg/dL (1.8-2.4); POTASSIUM 4.9 mmol/L (3.5-5.1); TOTAL BILIRUBIN 0.2 mg/dL (0.2-1.0); TOTAL PROTEIN 8.4 g/dL (6.4-8.2)
[2019-07-18] MEDS ORDERED: CONTRAST GIVEN. MC PRN (00:15)
[2019-07-18] MEDS ORDERED: IOHEXOL 300 MG/ML 100ML VIAL. IV ONE (00:30)
--- NOTE | 2019-07-18 02:18 | RAD ---
CT chest with contrast, CT abdomen pelvis with contrast. HISTORY: Short of air, abdominal pain CT scan of the chest was done using 60 mL Omnipaque 300 contrast. Sagittal and coronal reconstructed images were reviewed. Thyroid is homogeneous. There is no mediastinal adenopathy or pleural effusion. Lungs are free of infiltrates. There is a 3 mm nodule on image #44 in the left lower lobe.. IMPRESSION: 1. No infiltrates noted. 2. No adenopathy noted. 3. Tiny left lower lobe pulmonary nodule, Fleischner Society guidelines recommend an optional one-year follow-up. End impression CT abdomen pelvis CT scan the abdomen pelvis was done following CT chest with contrast. There is diffuse fatty change in the liver. There is further decreased density with possible mass or severe fatty liver change in the caudate lobe of the liver. The decreased density in the caudate lobe of the liver is a change compared to the study from April 03. The diffuse fatty liver change is more dramatic than the prior study. Spleen and adrenal glands are normal. Pancreas is normal. There is no mass or hydronephrosis of the kidneys. There is no adenopathy. There is no bowel obstruction or ascites. Uterus and ovaries are normal. There is not evidence of a diverticulitis. IMPRESSION: 1. Diffuse fatty change in the liver. 2. More dramatic decreased density in the caudate lobe of the liver which could be a developing mass or just marked fatty liver change, the pattern is much worse compared to the study from March, follow-up study or MRI the liver would be recommended. 3. No other evidence of a mass or acute finding in the abdomen or pelvis. PQRS Compliance Statement: One or more of the following individualized dose reduction techniques were utilized for this examination: 1. Automated exposure control 2. Adjustment of the mA and/or kV according to patient size 3. Use of iterative reconstruction technique Electronically signed by: Kendall Proctor MD (07/18/2019 2:15 AM) [facility]
[2019-07-18] MEDS ORDERED: ONDANSETRON PF 4 MG/2 ML VIAL. IV PRN (02:30)
[2019-07-18] MEDS ORDERED: IV DEXTROSE 5% 250 ML BAG. IV PRN (02:30)
[2019-07-18] MEDS ORDERED: DEXTROSE 50% 25 GM / 50ML DISP.SYRIN. IV PRN (02:30)
--- NOTE | 2019-07-18 02:32 | PHYS DOC ---
Past Medical History Past Medical History: Anemia, Diabetes-Type II, Hypertension, Hypothyroid, Schizophrenia, Other Additional Past Medical Histor: Borderline personality, GI hemorrhage, ARF w/hypoxia, PSYCHOSIS Past Surgical History: , Tubal ligation, Other Additional Past Surgical Histo: Pt reports prior "belly surgery" - unable to give details Alcohol Use: None Drug Use: None Adult General Chief Complaint Chief Complaint: ABDOMINAL PAIN HPI HPI Patient is a 54 year old [f__sex] who presents with [] Review of Systems Review of Systems Constitutional: Denies fever or chills [] Eyes: Denies change in visual acuity, redness, or eye pain [] HENT: Denies nasal congestion or sore throat [] Respiratory: Denies cough or shortness of breath [] Cardiovascular: No additional information not addressed in HPI [] GI: Denies abdominal pain, nausea, vomiting, bloody stools or diarrhea [] : Denies dysuria or hematuria [] Musculoskeletal: Denies back pain or joint pain [] Integument: Denies rash or skin lesions [] Neurologic: Denies headache, focal weakness or sensory changes [] Endocrine: Denies polyuria or polydipsia [] All other systems were reviewed and found to be within normal limits, except as documented in this note. Current Medications Current Medications Current Medications Medications (Trade) Dose Ordered Sig/Mickie Start Time Stop Time Status Last Admin Dose Admin Famotidine (Pepcid Vial) 20 mg 1X ONCE 07/17/19 23:00 07/17/19 23:01 DC 07/17/19 23:27 20 MG Fentanyl Citrate (Fentanyl 2ml Vial) 50 mcg 1X ONCE 07/17/19 23:30 07/17/19 23:31 DC 07/17/19 23:27 50 MCG Info (CONTRAST GIVEN -- Rx MONITORING) 1 each PRN DAILY PRN 07/18/19 00:15 07/20/19 00:14 Iohexol (Omnipaque 300 Mg/ml) 60 ml 1X ONCE 07/18/19 00:30 07/18/19 00:31 DC Ketorolac Tromethamine (Toradol 15mg Vial) 15 mg 1X ONCE 07/17/19 23:00 07/17/19 23:01 DC 07/17/19 23:27 15 MG Ondansetron HCl (Zofran) 4 mg 1X ONCE 07/17/19 23:00 07/17/19 23:01 DC 07/17/19 23:27 4 MG Sodium Chloride 1,000 ml @ 1,000 mls/hr 1X ONCE 07/17/19 23:00 07/17/19 23:59 DC 07/17/19 23:27 1,000 MLS/HR Allergies Allergies Allergies Coded Allergies Type Severity Reaction Last Updated Verified Penicillins Allergy Severe Anaphylaxis 03/21/19 Yes pineapple Allergy Severe Rash 04/17/19 Yes gabapentin Allergy Intermediate Hives 03/21/19 Yes tuberculin,PPD,multi-puncture Allergy Intermediate 04/17/19 Yes Physical Exam Physical Exam Constitutional: Well developed, well nourished, no acute distress, non-toxic appearance. [] HENT: Normocephalic, atraumatic, bilateral external ears normal, oropharynx moist, no oral exudates, nose normal. [] Eyes: PERRLA, EOMI, conjunctiva normal, no discharge. [] Neck: Normal range of motion, no tenderness, supple, no stridor. [] Cardiovascular:Heart rate regular rhythm, no murmur [] Lungs & Thorax: Bilateral breath sounds clear to auscultation [] Abdomen: Bowel sounds normal, soft, no tenderness, no masses, no pulsatile masses. [] Skin: Warm, dry, no erythema, no rash. [] Back: No tenderness, no CVA tenderness. [] Extremities: No tenderness, no cyanosis, no clubbing, ROM intact, no edema. [] Neurologic: Alert and oriented X 3, normal motor function, normal sensory function, no focal deficits noted. [] Psychologic: Affect normal, judgement normal, mood normal. [] Current Patient Data Vital Signs Vital Signs Date Time Temp Pulse Resp B/P (MAP) Pulse Ox O2 Delivery O2 Flow Rate FiO2 07/18/19 01:30 76 105/55 (72) 99 Nasal Cannula 2.0 07/18/19 00:00 16 07/17/19 22:29 98.8 98.8 Lab Values Laboratory Tests Test 07/17/19 22:35 07/17/19 23:23 White Blood Count 11.4 x10^3/uL (4.0-11.0) H Red Blood Count 4.23 x10^6/uL (3.50-5.40) Hemoglobin 12.4 g/dL (12.0-15.5) Hematocrit 37.7 % (36.0-47.0) Mean Corpuscular Volume 89 fL (79-100) Mean Corpuscular Hemoglobin 29 pg (25-35) Mean Corpuscular Hemoglobin Concent 33 g/dL (31-37) Red Cell Distribution Width 14.6 % (11.5-14.5) H Platelet Count 257 x10^3/uL (140-400) Neutrophils (%) (Auto) 56 % (31-73) Lymphocytes (%) (Auto) 31 % (24-48) Monocytes (%) (Auto) 10 % (0-9) H Eosinophils (%) (Auto) 2 % (0-3) Basophils (%) (Auto) 2 % (0-3) Neutrophils # (Auto) 6.4 x10^3/uL (1.8-7.7) Lymphocytes # (Auto) 3.5 x10^3/uL (1.0-4.8) Monocytes # (Auto) 1.1 x10^3/uL (0.0-1.1) Eosinophils # (Auto) 0.2 x10^3/uL (0.0-0.7) Basophils # (Auto) 0.2 x10^3/uL (0.0-0.2) Prothrombin Time 12.4 SEC (11.7-14.0) Prothrombin Time INR 1.0 (0.8-1.1) Activated Partial Thromboplast Time 28 SEC (24-38) Lactic Acid Level 3.1 mmol/L (0.4-2.0) H Urine Collection Type Unknown Urine Color Yellow Urine Clarity Clear Urine pH 6.0 Urine Specific [place] 1.025 Urine Protein Negative mg/dL (NEG-TRACE) Urine Glucose (UA) >=1000 mg/dL (NEG) Urine Ketones (Stick) Negative mg/dL (NEG) Urine Blood Negative (NEG) Urine Nitrite Negative (NEG) Urine Bilirubin Negative (NEG) Urine Urobilinogen Dipstick 0.2 mg/dL (0.2 mg/dL) Urine Leukocyte Esterase Negative (NEG) Urine RBC 0 /HPF (0-2) Urine WBC Rare /HPF (0-4) Urine Squamous Epithelial Cells Mod /LPF Urine Bacteria 0 /HPF (0-FEW) Urine Mucus Slight /LPF Sodium Level 142 mmol/L (136-145) Potassium Level 4.9 mmol/L (3.5-5.1) Chloride Level 102 mmol/L (98-107) Carbon Dioxide Level 30 mmol/L (21-32) Anion Gap 10 (6-14) Blood Urea Nitrogen 13 mg/dL (7-20) Creatinine 1.1 mg/dL (0.6-1.0) H Estimated GFR (Cockcroft-Gault) 52.2 BUN/Creatinine Ratio 12 (6-20) Glucose Level 311 mg/dL (70-99) H Calcium Level 9.5 mg/dL (8.5-10.1) Magnesium Level 1.4 mg/dL (1.8-2.4) L Total Bilirubin 0.2 mg/dL (0.2-1.0) Aspartate Amino Transferase (AST) 55 U/L (15-37) H Alanine Aminotransferase (ALT) 64 U/L (14-59) H Alkaline Phosphatase 129 U/L (46-116) H Creatine Kinase 76 U/L (26-192) Creatine Kinase MB (Mass) 0.9 ng/mL (0.0-3.6) Creatine Kinase MB Relative Index 1.2 % (0-4) Troponin I Quantitative < 0.017 ng/mL (0.000-0.055) Total Protein 8.4 g/dL (6.4-8.2) H Albumin 3.2 g/dL (3.4-5.0) L Albumin/Globulin Ratio 0.6 (1.0-1.7) L Lipase 380 U/L (73-393) Valproic Acid Level 18 mcg/mL (50-100) L Valproic Acid Last Dose Date Valproic Acid Last Dose Time Laboratory Tests 07/17/19 22:35 Laboratory Tests 07/17/19 23:23 EKG EKG [] Radiology/Procedures Radiology/Procedures @2307 NSR at 88bpm, NO ST elevation, QRS 96ms, QT/QTc 356/434ms Course & Med Decision Making Course & Med Decision Making Pertinent Labs and Imaging studies reviewed. (See chart for details) [] Dragon Disclaimer Dragon Disclaimer This electronic medical record was generated, in whole or in part, using a voice recognition dictation system. Departure Departure Impression: Primary Impression: Abdominal pain Additional Impressions: Hyperglycemia Hypomagnesemia Lactic acidosis Disposition: 09 ADMITTED INPATIENT Admitting Physician: Fletcher Fregoso Condition: GUARDED Referrals: ADDI ABREU MD (PCP) Problem Qualifiers Primary Impression: Abdominal pain Abdominal location: generalized Qualified Codes: R10.84 - Generalized abdominal pain LATOSHA HERNANDEZ DO Jul 18, 2019 02:32
[2019-07-18] MEDS ORDERED: INSULIN REGULAR 100 UNIT/ML 3ML VIAL. SQ ONE (03:00)
[2019-07-18] MEDS ORDERED: IV NORMAL SALINE 1000ML BAG 1,000 ML IV ONE (03:00)
[2019-07-18] MEDS ORDERED: MAGNESIUM SULFATE 2GM 50 ML IV ONE (03:00)
[2019-07-18 05:30] VITALS: BP 120/66
[2019-07-18] MEDS: fentaNYL PF VIAL 100 MCG/2 ML VIAL IV PRN ×2 (05:51→13:26)
[2019-07-18 07:00] VITALS: BP 114/33
[2019-07-18] MEDS: INSULIN LISPRO 300 UNITS/3 ML VIAL. SQ SCH ×3 (08:00→17:00)
--- NOTE | 2019-07-18 10:27 | PDOC ---
GENERAL General: see dictated H&P. VITAL SIGNS/I&O Vital Signs/I&O: Vital Signs Date Time Temp Pulse Resp B/P (MAP) Pulse Ox O2 Delivery O2 Flow Rate FiO2 07/18/19 07:00 97.7 72 18 114/33 (60) 97 Room Air 97.7 07/18/19 06:16 2.0 I & O 07/17/19 07/17/19 07/18/19 14:59 22:59 06:59 Intake Total 1000 ml Balance 1000 ml ALLERGIES Allergies: Allergies Coded Allergies Type Severity Reaction Last Updated Verified Penicillins Allergy Severe Anaphylaxis 03/21/19 Yes pineapple Allergy Severe Rash 04/17/19 Yes gabapentin Allergy Intermediate Hives 03/21/19 Yes tuberculin,PPD,multi-puncture Allergy Intermediate 04/17/19 Yes MEDS Medications: Current Medications Medications (Trade) Dose Ordered Sig/Mickie Route PRN Reason Start Time Stop Time Status Last Admin Dose Admin Ondansetron HCl (Zofran) 4 mg 1X ONCE IV 07/17/19 23:00 07/17/19 23:01 DC 07/17/19 23:27 Famotidine (Pepcid Vial) 20 mg 1X ONCE IVP 07/17/19 23:00 07/17/19 23:01 DC 07/17/19 23:27 Ketorolac Tromethamine (Toradol 15mg Vial) 15 mg 1X ONCE IV 07/17/19 23:00 07/17/19 23:01 DC 07/17/19 23:27 Sodium Chloride 1,000 ml @ 1,000 mls/hr 1X ONCE IV 07/17/19 23:00 07/17/19 23:59 DC 07/17/19 23:27 Fentanyl Citrate (Fentanyl 2ml Vial) 50 mcg 1X ONCE IV 07/17/19 23:30 07/17/19 23:31 DC 07/17/19 23:27 Sodium Chloride 1,000 ml @ 1,000 mls/hr 1X ONCE IV 07/18/19 03:00 07/18/19 03:59 DC 07/18/19 04:24 Levofloxacin/ Dextrose 150 ml @ 100 mls/hr 1X ONCE IV 07/18/19 03:00 07/18/19 04:29 DC 07/18/19 05:22 Metronidazole 100 ml @ 100 mls/hr 1X ONCE IV 07/18/19 03:00 07/18/19 03:59 DC 07/18/19 04:24 Magnesium Sulfate 50 ml @ 25 mls/hr 1X ONCE IV 07/18/19 03:00 07/18/19 04:59 DC 07/18/19 04:24 Insulin Human Regular (HumuLIN R VIAL) 14 unit 1X ONCE SQ 07/18/19 03:00 07/18/19 03:01 DC 07/18/19 04:51 Fentanyl Citrate (Fentanyl 2ml Vial) 50 mcg PRN Q2HRS PRN IV SEVERE PAIN 7-10 07/18/19 02:30 07/18/19 05:52 LAB Lab: Laboratory Tests Test 07/17/19 22:35 07/17/19 23:23 07/18/19 05:00 07/18/19 08:21 White Blood Count 11.4 x10^3/uL (4.0-11.0) H Red Blood Count 4.23 x10^6/uL (3.50-5.40) Hemoglobin 12.4 g/dL (12.0-15.5) Hematocrit 37.7 % (36.0-47.0) Mean Corpuscular Volume 89 fL (79-100) Mean Corpuscular Hemoglobin 29 pg (25-35) Mean Corpuscular Hemoglobin Concent 33 g/dL (31-37) Red Cell Distribution Width 14.6 % (11.5-14.5) H Platelet Count 257 x10^3/uL (140-400) Neutrophils (%) (Auto) 56 % (31-73) Lymphocytes (%) (Auto) 31 % (24-48) Monocytes (%) (Auto) 10 % (0-9) H Eosinophils (%) (Auto) 2 % (0-3) Basophils (%) (Auto) 2 % (0-3) Neutrophils # (Auto) 6.4 x10^3/uL (1.8-7.7) Lymphocytes # (Auto) 3.5 x10^3/uL (1.0-4.8) Monocytes # (Auto) 1.1 x10^3/uL (0.0-1.1) Eosinophils # (Auto) 0.2 x10^3/uL (0.0-0.7) Basophils # (Auto) 0.2 x10^3/uL (0.0-0.2) Prothrombin Time 12.4 SEC (11.7-14.0) Prothrombin Time INR 1.0 (0.8-1.1) Activated Partial Thromboplast Time 28 SEC (24-38) Lactic Acid Level 3.1 mmol/L (0.4-2.0) H 1.5 mmol/L (0.4-2.0) Urine Collection Type Unknown Urine Color Yellow Urine Clarity Clear Urine pH 6.0 Urine Specific [place] 1.025 Urine Protein Negative mg/dL (NEG-TRACE) Urine Glucose (UA) >=1000 mg/dL (NEG) Urine Ketones (Stick) Negative mg/dL (NEG) Urine Blood Negative (NEG) Urine Nitrite Negative (NEG) Urine Bilirubin Negative (NEG) Urine Urobilinogen Dipstick 0.2 mg/dL (0.2 mg/dL) Urine Leukocyte Esterase Negative (NEG) Urine RBC 0 /HPF (0-2) Urine WBC Rare /HPF (0-4) Urine Squamous Epithelial Cells Mod /LPF Urine Bacteria 0 /HPF (0-FEW) Urine Mucus Slight /LPF Sodium Level 142 mmol/L (136-145) Potassium Level 4.9 mmol/L (3.5-5.1) Chloride Level 102 mmol/L (98-107) Carbon Dioxide Level 30 mmol/L (21-32) Anion Gap 10 (6-14) Blood Urea Nitrogen 13 mg/dL (7-20) Creatinine 1.1 mg/dL (0.6-1.0) H Estimated GFR (Cockcroft-Gault) 52.2 BUN/Creatinine Ratio 12 (6-20) Glucose Level 311 mg/dL (70-99) H Calcium Level 9.5 mg/dL (8.5-10.1) Magnesium Level 1.4 mg/dL (1.8-2.4) L Total Bilirubin 0.2 mg/dL (0.2-1.0) Aspartate Amino Transferase (AST) 55 U/L (15-37) H Alanine Aminotransferase (ALT) 64 U/L (14-59) H Alkaline Phosphatase 129 U/L (46-116) H Creatine Kinase 76 U/L (26-192) Creatine Kinase MB (Mass) 0.9 ng/mL (0.0-3.6) Creatine Kinase MB Relative Index 1.2 % (0-4) Troponin I Quantitative < 0.017 ng/mL (0.000-0.055) Total Protein 8.4 g/dL (6.4-8.2) H Albumin 3.2 g/dL (3.4-5.0) L Albumin/Globulin Ratio 0.6 (1.0-1.7) L Lipase 380 U/L (73-393) Valproic Acid Level 18 mcg/mL (50-100) L Valproic Acid Last Dose Date Valproic Acid Last Dose Time Glucose (Fingerstick) 161 mg/dL (70-99) H Laboratory Tests 07/17/19 22:35 Laboratory Tests 07/17/19 23:23 KAYE MARQUEZ MD Jul 18, 2019 10:27
[2019-07-18] MEDS ORDERED: CALCIUM CARBONATE 500 MG TABLET PO PRN (10:30)
[2019-07-18] MEDS: CYCLOBENZAPRINE 10 MG TABLET. PO SCH ×3 (10:45→21:33)
[2019-07-18 11:00] VITALS: BP 124/82
[2019-07-18] MEDS: CITALOPRAM 20 MG TABLET. PO SCH (11:00)
[2019-07-18] MEDS: ASPIRIN ENTERIC COATED 81 MG TABLET.DR. PO SCH (11:00)
[2019-07-18] MEDS: LISINOPRIL 20 MG TABLET PO SCH (11:00)
[2019-07-18] MEDS: ZIPRASIDONE 60 MG CAPSULE. PO SCH (11:00)
[2019-07-18] MEDS: LINAGLIPTIN 5 MG TABLET PO SCH (11:00)
[2019-07-18] MEDS: DOCUSATE SODIUM 100 MG CAPSULE. PO SCH ×2 (11:00→21:00)
[2019-07-18] MEDS: LEVOTHYROXINE 150 MCG TABLET PO SCH (11:00)
[2019-07-18] MEDS ORDERED: INSULIN GLARGINE SYRINGE. SQ SCH ×2 (11:30)
[2019-07-18] MEDS: INSULIN GLARGINE SYRINGE. SQ SCH (11:30)
[2019-07-18] MEDS: PANTOPRAZOLE 40 MG TABLET.DR. PO SCH (11:30)
--- NOTE | 2019-07-18 12:13 | HP ---
ADMIT DATE: 07/18/2019 CHIEF COMPLAINT AND HISTORY OF PRESENT ILLNESS: This 54-year-old white female, senior living resident of [facility], presented to the Emergency Room with severe abdominal pain on the day of admission. She described it as sharp and like someone was cutting, had a knife in her abdomen and cutting throughout the abdomen. She cannot look at it to any particular quadrant or region. She denies any problems with nausea, vomiting, but did have some diarrhea according to the Emergency Room records, although she denies it to me. She denies any urinary symptoms leading up to this, such as frequency, urgency, dysuria, etc. States that she did have a low-grade fever of 99.5 with this. This morning, she states things feel much better and is requesting food as she is very hungry. PAST MEDICAL HISTORY: Remarkable for type 2 diabetes, anemia, hypertension, hypothyroidism, schizophrenia, borderline personality, acute renal failure, hypoxia, GI hemorrhages in the past. She has had a prior and tubal ligation. MEDICATIONS: Brought with the patient, listed on the computer have been addressed. ALLERGIES: SHE IS ALLERGIC TO PENICILLIN, GABAPENTIN, PINEAPPLE, TUBERCULIN PPD. SOCIAL HISTORY: She is nonsmoker, nondrinker, does not use drugs. Lives in a senior living. FAMILY HISTORY: Noncontributory. REVIEW OF SYSTEMS: As mentioned above. PHYSICAL EXAMINATION: GENERAL: She is a well-developed, well-nourished, obese, white female, who appears in no acute distress. VITAL SIGNS: Stable. She is afebrile. HEAD, EYES, EARS, NOSE AND THROAT: Unremarkable. NECK: Supple without bruit or thyromegaly. CHEST: Clear to auscultation and percussion. HEART: Regular rate and rhythm without S3, S4 or murmur. ABDOMEN: Soft, nontender, without hepatosplenomegaly or masses. EXTREMITIES: Without cyanosis, clubbing or edema. There is no CVA tenderness present. NEUROLOGIC: She is intact. 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 Initial labs were remarkable for a white count of 11,400. Sugar was elevated at 311 on admission, is down to 161 this morning. She has mild elevation of liver function tests with alkaline phosphatase 129, AST of 55, ALT of 64, albumin is low at 3.2. Creatinine is elevated at 1.1. INR is within normal limits. Valproic acid level is 18 on admission and urinalysis other than glycosuria is unremarkable. IMAGING: Include CT chest, abdomen and pelvis showing fatty changes in the liver, but more dramatic decreased density in the caudate lobe of the liver, which could be a developing mass or just marked fatty liver change. The pattern is much worse compared to the study from March. Followup study or MRI of the liver would be recommended by Radiology. IMPRESSION: 1. Abdominal pain, improving, of uncertain etiology. 2. Mild leukocytosis. 3. Diabetes. 4. Hypertension. 5. Hypothyroidism. 6. Schizophrenia. PLAN: We will at this point hold any further antibiotics and watch her clinically. I discussed with nursing and her diet can be advanced as tolerated. KAYE MARQUEZ MD DR: ADDISON/sundar JOB#: [id number] / [id number]
[2019-07-18] MEDS: MAGNESIUM OXIDE 400 MG TABLET PO SCH ×2 (12:50→21:33)
[2019-07-18 15:00] VITALS: BP 151/71
[2019-07-18 19:00] VITALS: BP 144/90
[2019-07-18] MEDS ORDERED: DIVALPROEX EXTENDED RELEASE 500 MG TAB.ER.24H. PO SCH (21:00)
[2019-07-18] MEDS ORDERED: NON FORMULARY ITEM (Melatonin 3 MG) PO SCH (21:00)
[2019-07-18] MEDS: IPRATRPIUM/ALBUTEROL 0.5/2.5MG 3 ML NEBU. NEB SCH (21:15)
[2019-07-18] MEDS: ATORVASTATIN CALCIUM 20 MG TABLET PO SCH (21:33)
[2019-07-18] MEDS: DIVALPROEX EXTENDED RELEASE 250 MG TAB.ER.24H. PO SCH (21:33)
[2019-07-18 23:00] VITALS: BP 138/71
[2019-07-19 03:00] VITALS: BP 123/71
--- NOTE | 2019-07-19 04:47 | EKG ---
[facility] [address] [place] [address] Test Date: 2019-07-17 Test Time: 23:07:20 Pat Name: JOSE THOMPSON Department: Room: Gender: F [employer]: : [id number] Requested By: LATOSHA HERNANDEZ Order Number: [id number] Reading MD: Measurements Intervals [place] Rate: 87 P: 50 [place]: 172 QRS: 61 QRSD: 96 T: 64 QT: 356 QTc: 434 Interpretive Statements SINUS RHYTHM NON SPECIFIC T ABNORMALITY BORDERLINE ECG No previous ECG available for comparison
[2019-07-19 07:00] VITALS: BP 121/49
[2019-07-19] MEDS: LEVOTHYROXINE 150 MCG TABLET PO SCH (07:26)
[2019-07-19] MEDS: INSULIN LISPRO 300 UNITS/3 ML VIAL. SQ SCH ×3 (08:00→17:01)
[2019-07-19] MEDS: IPRATRPIUM/ALBUTEROL 0.5/2.5MG 3 ML NEBU. NEB SCH ×2 (09:00→15:34)
[2019-07-19] MEDS: DOCUSATE SODIUM 100 MG CAPSULE. PO SCH ×2 (09:00→22:50)
[2019-07-19] MEDS: ZIPRASIDONE 60 MG CAPSULE. PO SCH (09:00)
[2019-07-19] MEDS: ASPIRIN ENTERIC COATED 81 MG TABLET.DR. PO SCH (09:00)
[2019-07-19] MEDS: MAGNESIUM OXIDE 400 MG TABLET PO SCH ×3 (09:01→22:50)
[2019-07-19] MEDS: CITALOPRAM 20 MG TABLET. PO SCH (09:01)
[2019-07-19] MEDS: PANTOPRAZOLE 40 MG TABLET.DR. PO SCH (09:01)
[2019-07-19] MEDS: CYCLOBENZAPRINE 10 MG TABLET. PO SCH ×3 (09:01→22:50)
[2019-07-19] MEDS: LISINOPRIL 20 MG TABLET PO SCH (09:01)
[2019-07-19] MEDS: LINAGLIPTIN 5 MG TABLET PO SCH (09:01)
[2019-07-19] MEDS: INSULIN GLARGINE SYRINGE. SQ SCH (09:08)
--- NOTE | 2019-07-19 10:44 | PDOC ---
GENERAL General: vss and afebrile. still complains of intermittent sharp abdominal pain. chest c lear, heart regular, abdomen benign. will recheck labs in am with leukocytosis and elevated lft's on admission. outpatient followup of caudate lobe abnormality per Dr. Nichols on return tomorrow. VITAL SIGNS/I&O Vital Signs/I&O: Vital Signs Date Time Temp Pulse Resp B/P (MAP) Pulse Ox O2 Delivery O2 Flow Rate FiO2 07/19/19 09:09 71 121/49 07/19/19 08:00 Room Air 07/19/19 07:00 98.0 18 96 98.0 07/18/19 08:00 2.0 I & O 07/18/19 07/18/19 07/19/19 14:59 22:59 06:59 Intake Total 900 ml Balance 900 ml ALLERGIES Allergies: Allergies Coded Allergies Type Severity Reaction Last Updated Verified Penicillins Allergy Severe Anaphylaxis 03/21/19 Yes pineapple Allergy Severe Rash 04/17/19 Yes gabapentin Allergy Intermediate Hives 03/21/19 Yes tuberculin,PPD,multi-puncture Allergy Intermediate 04/17/19 Yes MEDS Medications: Current Medications Medications (Trade) Dose Ordered Sig/Mickie Route PRN Reason Start Time Stop Time Status Last Admin Dose Admin Aspirin (Ecotrin) 81 mg DAILY PO 07/18/19 11:00 07/19/19 09:08 Atorvastatin Calcium (Lipitor) 20 mg HS PO 07/18/19 21:00 07/18/19 21:36 Citalopram Hydrobromide (CeleXA) 20 mg DAILY PO 07/18/19 11:00 07/19/19 09:08 Divalproex Sodium (Depakote Er) 750 mg QHS PO 07/18/19 21:00 07/18/19 21:36 Docusate Sodium (Colace) 100 mg BID PO 07/18/19 11:00 07/19/19 09:08 Albuterol/ Ipratropium (Duoneb) 3 ml BID NEB 07/18/19 21:00 07/18/19 21:15 Levothyroxine Sodium (Synthroid) 150 mcg DAILY06 PO 07/18/19 11:00 07/19/19 07:27 Lisinopril (Prinivil) 20 mg DAILY PO 07/18/19 11:00 07/19/19 09:09 Magnesium Oxide (Magnesium Oxide) 400 mg TID PO 07/18/19 14:00 07/19/19 09:09 Ziprasidone (Geodon) 120 mg DAILY PO 07/18/19 11:00 07/19/19 09:08 Cyclobenzaprine HCl (Flexeril) 10 mg TID PO 07/18/19 10:45 07/19/19 09:08 Pantoprazole Sodium (Protonix) 40 mg DAILYAC PO 07/18/19 11:30 07/19/19 09:09 Linagliptin (Tradjenta) 5 mg DAILY PO 07/18/19 11:00 07/19/19 09:08 Insulin Glargine (Lantus Syringe) 75 unit DAILY08 SQ 07/18/19 11:30 07/19/19 09:09 LAB Lab: Laboratory Tests Test 07/18/19 12:35 07/18/19 17:05 07/18/19 20:39 07/19/19 07:23 Glucose (Fingerstick) 230 mg/dL (70-99) H 217 mg/dL (70-99) H 253 mg/dL (70-99) H 242 mg/dL (70-99) H KAYE MARQUEZ MD Jul 19, 2019 10:44
[2019-07-19 10:50] VITALS: BP 124/58
[2019-07-19 15:00] VITALS: BP 149/74
[2019-07-19 19:00] VITALS: BP 137/64
[2019-07-19] MEDS: DIVALPROEX EXTENDED RELEASE 250 MG TAB.ER.24H. PO SCH (22:50)
[2019-07-19] MEDS: ATORVASTATIN CALCIUM 20 MG TABLET PO SCH (22:50)
[2019-07-19 23:00] VITALS: BP 162/84
[2019-07-20 03:00] VITALS: BP 138/74
[2019-07-20] MEDS: LEVOTHYROXINE 150 MCG TABLET PO SCH (06:07)
[2019-07-20 07:00] VITALS: BP 112/77
[2019-07-20] MEDS: IPRATRPIUM/ALBUTEROL 0.5/2.5MG 3 ML NEBU. NEB SCH ×2 (08:07→20:38)
[2019-07-20] MEDS: ASPIRIN ENTERIC COATED 81 MG TABLET.DR. PO SCH (08:36)
[2019-07-20] MEDS: DOCUSATE SODIUM 100 MG CAPSULE. PO SCH ×2 (08:36→20:57)
[2019-07-20] MEDS: CITALOPRAM 20 MG TABLET. PO SCH (08:36)
[2019-07-20] MEDS: MAGNESIUM OXIDE 400 MG TABLET PO SCH ×3 (08:36→20:57)
[2019-07-20] MEDS: CYCLOBENZAPRINE 10 MG TABLET. PO SCH ×3 (08:36→20:56)
[2019-07-20] MEDS: LINAGLIPTIN 5 MG TABLET PO SCH (08:36)
[2019-07-20] MEDS: metFORMIN 500 MG TABLET PO SCH ×2 (08:37→17:33)
[2019-07-20] MEDS: LISINOPRIL 20 MG TABLET PO SCH (08:37)
[2019-07-20] MEDS: ZIPRASIDONE 60 MG CAPSULE. PO SCH (08:37)
[2019-07-20] MEDS: PANTOPRAZOLE 40 MG TABLET.DR. PO SCH (08:37)
--- NOTE | 2019-07-20 08:41 | NUR ---
SW following pt for dc planning. Chart reviewed and SW confirmed pt is LTC resident at [facility], , fax: [phone]. Will continue to follow.
[2019-07-20] MEDS: INSULIN GLARGINE SYRINGE. SQ SCH (08:44)
[2019-07-20] MEDS: INSULIN LISPRO 300 UNITS/3 ML VIAL. SQ SCH ×3 (08:44→17:36)
[2019-07-20 08:53] LABS: BASO # 0.1 x10^3/uL (0.0-0.2); BASO % 1 % (0-3); EOS # 0.2 x10^3/uL (0.0-0.7); EOS % 2 % (0-3); HEMATOCRIT 38.7 % (36.0-47.0); HEMOGLOBIN 12.8 g/dL (12.0-15.5); LYMPH # 2.4 x10^3/uL (1.0-4.8); LYMPH % 30 % (24-48); MEAN CORPUSCULAR HEMOGLOBIN 29 pg (25-35); MEAN CORPUSCULAR HGB CONC 33 g/dL (31-37); MEAN CORPUSCULAR VOLUME 89 fL (79-100); MONO # 0.7 x10^3/uL (0.0-1.1); MONO % 9 % (0-9); NEUT # 4.7 x10^3/uL (1.8-7.7); NEUT % 58 % (31-73); PLATELET COUNT 247 x10^3/uL (140-400); RED BLOOD COUNT 4.36 x10^6/uL (3.50-5.40); RED CELL DISTRIBUTION WIDTH 14.6 % (11.5-14.5)
[2019-07-20 09:14] LABS: ALBUMIN/GLOBULIN RATIO 0.6 (1.0-1.7); CALCIUM 9.5 mg/dL (8.5-10.1); CREATININE 0.9 mg/dL (0.6-1.0); GFR 65.8; POTASSIUM 4.5 mmol/L (3.5-5.1); TOTAL BILIRUBIN 0.3 mg/dL (0.2-1.0); TOTAL PROTEIN 8.2 g/dL (6.4-8.2)
--- NOTE | 2019-07-20 09:32 | PN ---
DATE: 07/20/2019 SUBJECTIVE: The patient is resting, slightly propped up in bed, in no apparent respiratory distress. Awake, alert. On questioning her, she denied any complaints, in particular had no further episodes of abdominal pain. However, CT scan of the abdomen showed that the patient has diffuse fatty change in the liver. She has more dramatic decreased density in the caudate lobe of the liver, which could be a developing mass or just marked fatty liver changes, but there is more worse compared to study from March. Followup study or MRI of the liver would be recommended. No other evidence for mass or acute finding in the abdomen and pelvis. PHYSICAL EXAMINATION: GENERAL: When I examined her, she looked well and was clearly in no apparent respiratory distress, slightly pale, but no jaundice, cyanosis or thyromegaly. No jugular venous distention. No lower limb edema. VITAL SIGNS: Her heart rate was 88, blood pressure was 112/77, temperature was 98.1, respiratory rate was 18 and oxygen saturation was 98%. HEAD, EYES, EARS, NOSE AND THROAT: Showed normocephalic, atraumatic. NECK: Supple. HEART: Showed normal first and second heart sounds with no gallop, rub or murmur. CHEST: Clear to auscultation. No crepitation or rhonchi. ABDOMEN: Distended, soft, nontender. No guarding or rigidity. No organomegaly. All hernial orifice intact. Bowel sounds normal. NEUROLOGIC: She is awake, alert, responding appropriately. All cranial nerves intact. She moves extremities without difficulty. She ambulates without assistance or assistive devices. Her intake and output was incompletely recorded. LABORATORY DATA: As of this morning showed a white cell count of 8000, hemoglobin 12.8, hematocrit 38, MCV 89 and platelet count 247,000. Her blood sugar is suboptimally controlled. ASSESSMENT: 1. Diffuse abdominal pain has resolved. Other medical problems include type 2 diabetes mellitus, hypertension, hypothyroidism, schizophrenia, borderline personality, history of gastrointestinal bleed. PLAN: My plan is to consult the GI service about this abnormal finding. CT scan and if there is nothing to be done the patient can be discharged back to [facility] today. ADDI ABREU MD DR: EDU/sundar JOB#: [id number] / [id number]
--- NOTE | 2019-07-20 10:11 | PDOC2 ---
GI CONSULT Reason For Consult: mass in the liver HPI: HPI: 54 y/o female who we have seen int he past. Similar to previous encounters, she is difficult to awaken this morning. "I feel great!" Admitted a few days ago w/ abd pain which has apparently resolved. We are asked to see re: CT finding of "more dramatic decreased density in the caudate lobe of the liver which could be a developing mass or just marked fatty liver change, the pattern is much worse compared to the study from March." D/w RN - discharge pending GI recs. Denies reflux, dysphagia, abd pain, diarrhea, constipation, and bleeding. Has previously said she never wants to had EGD or colonoscopy. No GB, liver, pancreas, or PUD history. H/o "GI bleeds" mentioned in chart - ?hemorrhoids. Past imaging (including US in May 2019) notes hepatic steatosis. On ASA and pantoprazole here. PMH: PMH: CVA, HTN, DM, HLD, schizophrenia, bipolar, PTSD, diverticulosis/itis, hepatic steatosis, hypothyroidism, tubal ligation, ?, ?appendectomy FH: Family History: No pertinent hx Social History: ALCOHOL: none Drugs: None ROS: GEN: Denies fevers, chills, sweats HEENT: Denies blurred vision, sore throat CV: Denies chest pain RESP: Denies shortness of air, cough GI: Per HPI : Denies hematuria, dysuria ENDO: Denies weight changes NEURO: Denies confusion, dizziness MSK: Denies weakness, joint pain/swelling SKIN: Denies jaundice, pruritus Vitals: Vitals: Vital Signs Date Time Temp Pulse Resp B/P (MAP) Pulse Ox O2 Delivery O2 Flow Rate FiO2 07/20/19 08:45 88 112/77 07/20/19 08:08 98 Room Air 07/20/19 07:00 98.1 18 98.1 07/20/19 03:00 2.0 Labs: Labs: Laboratory Tests Test 07/19/19 12:06 07/19/19 16:36 07/19/19 20:55 07/20/19 07:10 Glucose (Fingerstick) 211 mg/dL (70-99) 343 mg/dL (70-99) 416 mg/dL (70-99) White Blood Count 8.0 x10^3/uL (4.0-11.0) Red Blood Count 4.36 x10^6/uL (3.50-5.40) Hemoglobin 12.8 g/dL (12.0-15.5) Hematocrit 38.7 % (36.0-47.0) Mean Corpuscular Volume 89 fL (79-100) Mean Corpuscular Hemoglobin 29 pg (25-35) Mean Corpuscular Hemoglobin Concent 33 g/dL (31-37) Red Cell Distribution Width 14.6 % (11.5-14.5) Platelet Count 247 x10^3/uL (140-400) Neutrophils (%) (Auto) 58 % (31-73) Lymphocytes (%) (Auto) 30 % (24-48) Monocytes (%) (Auto) 9 % (0-9) Eosinophils (%) (Auto) 2 % (0-3) Basophils (%) (Auto) 1 % (0-3) Neutrophils # (Auto) 4.7 x10^3/uL (1.8-7.7) Lymphocytes # (Auto) 2.4 x10^3/uL (1.0-4.8) Monocytes # (Auto) 0.7 x10^3/uL (0.0-1.1) Eosinophils # (Auto) 0.2 x10^3/uL (0.0-0.7) Basophils # (Auto) 0.1 x10^3/uL (0.0-0.2) Sodium Level 138 mmol/L (136-145) Potassium Level 4.5 mmol/L (3.5-5.1) Chloride Level 103 mmol/L (98-107) Carbon Dioxide Level 26 mmol/L (21-32) Anion Gap 9 (6-14) Blood Urea Nitrogen 11 mg/dL (7-20) Creatinine 0.9 mg/dL (0.6-1.0) Estimated GFR (Cockcroft-Gault) 65.8 BUN/Creatinine Ratio 12 (6-20) Glucose Level 319 mg/dL (70-99) Calcium Level 9.5 mg/dL (8.5-10.1) Total Bilirubin 0.3 mg/dL (0.2-1.0) Aspartate Amino Transf (AST/SGOT) 58 U/L (15-37) Alanine Aminotransferase (ALT/SGPT) 57 U/L (14-59) Alkaline Phosphatase 128 U/L (46-116) Total Protein 8.2 g/dL (6.4-8.2) Albumin 3.0 g/dL (3.4-5.0) Albumin/Globulin Ratio 0.6 (1.0-1.7) Test 07/20/19 07:28 Glucose (Fingerstick) 279 mg/dL (70-99) STOOL CULTURE PENDING STOOL CULT RES 1 PENDING CAMPY Preliminary Preliminary report CAMPY RES 1 Preliminary Comment No Campylobacter species isolated. Performed at: DA - [facility] [address] [facility] [address], [place], [place] [id number] [employer] Supervisor: JHOANA Mcnair MD, Phone: [phone] SHIGA TOXIN PENDING Allergies: Coded Allergies: Penicillins (Verified Allergy, Severe, Anaphylaxis, 03/21/19) pineapple (Verified Allergy, Severe, Rash, 04/17/19) facial swelling gabapentin (Verified Allergy, Intermediate, Hives, 03/21/19) tuberculin,PPD,multi-puncture (Verified Allergy, Intermediate, 04/17/19) Medications: Current Medications Medications (Trade) Dose Ordered Sig/Mickie Route PRN Reason Start Time Stop Time Status Last Admin Dose Admin Metformin HCl (Glucophage) 1,000 mg BIDWMEALS PO 07/20/19 08:00 07/20/19 08:45 Imaging: Imaging: C/A/P CT IMPRESSION: 1. Diffuse fatty change in the liver. 2. More dramatic decreased density in the caudate lobe of the liver which could be a developing mass or just marked fatty liver change, the pattern is much w orse compared to the study from March, follow-up study or MRI the liver would be recommended. 3. No other evidence of a mass or acute finding in the abdomen or pelvis. PE: GEN: NAD HEENT: Atraumatic, PERRL LUNGS: CTAB HEART: RRR ABD: NABS, S/ND/NT EXTREMITY: No edema SKIN: No rashes, no jaundice NEURO/PSYCH: A & O �3, drowsy A/P: A/P: Abd pain - resolved Abnormal CT - "more dramatic decreased density in the caudate lobe of the liver which could be a developing mass or just marked fatty liver change" Mildly elevated LFTs - AST 58, Alk Phos 120 Hepatic steatosis ?h/o GI bleeds - unclear, previously seemed c/w hemorrhoids Diverticular disease -- Reviewed w/ Dr. Mendoza - check MRI as recommended. JOS FRAUSTO Jul 20, 2019 10:11
[2019-07-20 11:00] VITALS: BP 135/82
[2019-07-20] MEDS ORDERED: GADOTERATE 7.5 MMOL/15ML VIAL. IVP ONE (13:30)
[2019-07-20 15:00] VITALS: BP 116/81
--- NOTE | 2019-07-20 17:45 | RAD ---
ABDOMEN WO/W CONTRAST Clinical Indication: Abnormal CT chest, abdomen and pelvis. Possible developing liver mass. Comparison: CT chest abdomen and pelvis with contrast July 18, 2019. TECHNIQUE: Routine multiplanar multiple pulse sequence images of the abdomen are obtained before and after 20 cc of Dotarem IV contrast. Findings: Moderate fatty infiltration of the liver is noted on the in and out of phase images. In the caudate lobe there is even greater fatty infiltration evidenced by greater signal dropout. There is focal fatty sparing along the gallbladder fossa. On the precontrast images, there is hypointensity of the caudate lobe. There is no arterial phase hyperenhancement in the caudate lobe. On later phases there is slight hyperenhancement in the caudate lobe that is mostly resolved on the 5 minute delay image. A hepatic mass is not identified. There are mildly enlarged britany hepatis lymph nodes, well demonstrated on the diffusion weighted images. These lymph nodes could be related to chronic liver disease. The gallbladder, biliary tree, spleen, pancreas, adrenal glands, and kidneys are normal. No evidence of bowel obstruction. IMPRESSION: 1. No hepatic mass is identified. 2. There is marked fatty infiltration of the caudate lobe and moderate fatty infiltration of the remainder of the liver. There is focal fatty sparing along the gallbladder fossa. 3. There are mildly enlarged britany hepatis lymph nodes which may be secondary to chronic liver disease. Electronically signed by: Harley Saha MD (07/20/2019 5:42 PM) [id number]
[2019-07-20 19:00] VITALS: BP 136/79
[2019-07-20] MEDS: ATORVASTATIN CALCIUM 20 MG TABLET PO SCH (20:56)
[2019-07-20] MEDS: DIVALPROEX EXTENDED RELEASE 250 MG TAB.ER.24H. PO SCH (20:57)
[2019-07-20 23:00] VITALS: BP 141/84
[2019-07-21 03:00] VITALS: BP 127/65
[2019-07-21] MEDS: LEVOTHYROXINE 150 MCG TABLET PO SCH (05:55)
[2019-07-21 07:00] VITALS: BP 143/85
[2019-07-21] MEDS: IPRATRPIUM/ALBUTEROL 0.5/2.5MG 3 ML NEBU. NEB SCH (07:37)
[2019-07-21] MEDS: LINAGLIPTIN 5 MG TABLET PO SCH (08:17)
[2019-07-21] MEDS: ZIPRASIDONE 60 MG CAPSULE. PO SCH (08:17)
[2019-07-21] MEDS: MAGNESIUM OXIDE 400 MG TABLET PO SCH ×2 (08:17→13:16)
[2019-07-21] MEDS: ASPIRIN ENTERIC COATED 81 MG TABLET.DR. PO SCH (08:17)
[2019-07-21] MEDS: DOCUSATE SODIUM 100 MG CAPSULE. PO SCH (08:18)
[2019-07-21] MEDS: PANTOPRAZOLE 40 MG TABLET.DR. PO SCH (08:18)
[2019-07-21] MEDS: CYCLOBENZAPRINE 10 MG TABLET. PO SCH ×2 (08:18→13:16)
[2019-07-21] MEDS: metFORMIN 500 MG TABLET PO SCH ×2 (08:18→16:52)
[2019-07-21] MEDS: CITALOPRAM 20 MG TABLET. PO SCH (08:18)
[2019-07-21] MEDS: LISINOPRIL 20 MG TABLET PO SCH (08:18)
[2019-07-21] MEDS: INSULIN GLARGINE SYRINGE. SQ SCH (08:26)
[2019-07-21] MEDS: INSULIN LISPRO 300 UNITS/3 ML VIAL. SQ SCH ×3 (08:27→16:55)
[2019-07-21 11:00] VITALS: BP 98/64
--- NOTE | 2019-07-21 11:02 | SNU/HH DC ---
DISCHARGE ORDERS DISCHARGE INFORMATION: DISCHARGE DATE: Jul 21, 2019 FINAL DIAGNOSIS ABDOMINAL PAIN Non alcoholic steatohepatitis Type II Diabetes Mellitus Schizophrenia CONDITION ON DISCHARGE: Stable CODE STATUS: Code Status: Full RETIREMENT: SNF STAY <30 DAYS: No POST DISCHARGE ORDERS: ACTIVITY ORDERS: Activity as tolerated WEIGHT BEARING STATUS: As tolerated DIET AFTER DISCHARGE: ADA CHECKS AFTER DISCHARGE: CHECKS AFTER DISCHARGE: Check blood press - daily, Check blood sugar, ac/hs FOLLOW-UP: LAB ORDERS FOR FOLLOW-UP: tsh ,depakot ,monthly, cbc cmp weekly for 4 weeks TREATMENT/EQUIPMENT ORDERS: ADAPTIVE EQUIPMENT NEEDED: [facility] Physical Therapy For: Evalulation/Treatment Occupational Therapy For: Evaluation/Treatment DISCHARGE MEDICATIONS: Home Meds Active Scripts Levothyroxine Sodium (SYNTHROID) 150 Mcg Tablet, 150 MCG PO DAILY06 for thyroid for 30 Days, #30 TAB Prov:ANN ROJAS MD 06/04/19 Magnesium Oxide (MAG-OXIDE) 400 Mg Tablet, 400 MG PO TID for HYPOMAGNESEMIA for 30 Days, #90 TAB 5 Refills Prov:ADDI ABREU MD 03/24/19 Reported Medications Orphenadrine Citrate (ORPHENADRINE CITRATE) 100 Mg Tablet.er, 1 TAB PO BID for muscle pain, #60 TAB 1 Refill 06/04/19 Ipratropium/Albuterol Sulfate (DUONEB 0.5-3(2.5) MG/3 ML) 3 Ml Ampul.neb, 3 ML NEB BID for WHEEZING, EACH 06/04/19 Ibuprofen (IBUPROFEN) 600 Mg Tablet, 600 MG PO PRN Q8HRS PRN for MILD PAIN 1-3, TAB 06/04/19 Calcium Carbonate (CALCIUM CARBONATE) 500 Mg Tablet, 500 MG PO PRN Q2HR PRN for HEARTBURN / GAS, TAB 06/04/19 Ziprasidone Hcl (GEODON) 60 Mg Capsule, 2 CAP PO DAILY for Bipolar, #60 CAP 1 Refill 04/17/19 Estradiol (ESTRADIOL) 1 Each Patch.tdwk, 1 EACH TD, PATCH 03/23/19 Insuln Asp Prt/Insulin Aspart (NOVOLOG MIX 70-30 FLEXPEN SYRN) 100 Unit/1 Ml Insuln.pen, 26 UNIT SQ TIDAC, SYR 03/23/19 Divalproex Sodium (DEPAKOTE ER) 250 Mg Tab.er.24h, 250 MG PO QHS for 750 MG TOTAL, TAB.SR 03/23/19 Ziprasidone Hcl (GEODON) 80 Mg Capsule, 200 MG PO DAILY for BIPOLAR, CAP 03/22/19 Divalproex Sodium (DIVALPROEX SODIUM ER) 500 Mg Tab.er.24h, 1 TAB PO QHS for SEIZURES, #60 TAB 03/22/19 Sitagliptin Phosphate (JANUVIA) 100 Mg Tablet, 1 TAB PO DAILY for DIABETES, #30 TAB 5 Refills 03/22/19 Pantoprazole Sodium (PROTONIX) 20 Mg Tablet.dr, 40 MG PO DAILY for GERD, TAB 03/22/19 Metformin Hcl (METFORMIN HCL) 1,000 Mg Tablet, 1000 MG PO BIDWMEALS for GLUCOSE, TAB 03/22/19 Lisinopril (LISINOPRIL) 20 Mg Tablet, 1 TAB PO DAILY for HYPERTENSION, #30 TAB 5 Refills 03/22/19 Insulin Glargine,Hum.rec.anlog (LANTUS SOLOSTAR) 100 Unit/1 Ml Insuln.pen, 75 UNIT SQ DAILYAC for GLUCOSE, #15 ML 3 Refills 03/22/19 Docusate Sodium (DOCUSATE SODIUM) 100 Mg Capsule, 1 CAP PO BID for CONSTIPATION, #30 CAP 03/22/19 Citalopram Hydrobromide (CELEXA) 20 Mg Tablet, 1 TAB PO DAILY for ANTIDEPRESSANT , #90 TAB 3 Refills 03/22/19 Atorvastatin Calcium (LIPITOR) 20 Mg Tablet, 20 MG PO HS for CHOLESTEROL, #30 TAB 0 Refills 03/22/19 Aspirin (Lo-Dose Aspirin EC) 81 Mg Tablet.dr, 81 MG PO DAILY for BLOOD THINNER, TAB.SR 03/22/19 Melatonin (MELATONIN) 3 Mg Tablet, 3 MG PO QHS for SLEEP, TAB 03/22/19 ADDI ABREU MD Jul 21, 2019 11:02
--- NOTE | 2019-07-21 12:38 | NUR ---
DOUG following pt. Orders faxed to [facility] and pt will transport via facility arranged w/c varinder until 1730. Discussed with CHEMA.
[2019-07-21 15:00] VITALS: BP 101/64
--- NOTE | 2019-07-21 17:58 | DS ---
DATE OF DISCHARGE: 07/21/2019 HOSPITAL COURSE: The patient is a 54-year-old female patient, a resident at [facility] in [place], who was admitted with abdominal pain. She was extensively investigated and all her lab works were within normal range except however, her liver enzymes are slightly elevated and hepatitis serology showed that her hepatitis A IgM antibody negative, hepatitis B surface antigen, hepatitis B core antigen and hepatitis C, IgM antibodies were all nonreactive. She has had a CT scan of the chest, abdomen and pelvis, which showed that the patient has diffuse fatty change in the liver. There is a more dramatic decreased density in the caudate lobe of the liver, which could be a developing mass or just marked fatty liver changes and therefore we consulted the Gastroenterology team and she has had an abdominal MRI, which showed no hepatic mass identified. There is marked fatty infiltration of the caudate lobe and moderate fatty infiltration in the remainder of the liver. There is a focal fatty sparing along the gallbladder fossa. There are mildly enlarged britany hepatis lymph nodes which may be secondary to chronic liver disease. The patient remained asymptomatic, has had no more abdominal pain, has been up and about. A decision was made to discharge her back to [facility] in [place]. PHYSICAL EXAMINATION: When I examined her this morning, she was resting slightly propped up in bed, in no apparent respiratory distress. No pallor, jaundice, cyanosis, or thyromegaly. No jugular venous distension. No limb edema. Her heart rate was 87, blood pressure 127/65, temperature was 98.7, respiratory rate was 18 and oxygen saturation was 94% on room air. The rest of the clinical exam was stable. DISCHARGE MEDICATIONS: She was discharged to continue on following medications: Aspirin 81 mg once a day, atorvastatin calcium 20 mg at bedtime, calcium carbonate 500 mg every 2 hours as needed, citalopram hydrobromide (Celexa) 20 mg once a day, divalproex sodium extended release 500 mg once a day and Depakote extended release she takes 750 mg at bedtime, Colace 100 mg twice a day, estradiol 1 patch transdermal once a day, ibuprofen 600 mg every 8 hours, Lantus insulin 75 units daily, she is also on NovoLog 70/30 FlexPen 26 units before meals, ipratropium bromide, albuterol sulfate by nebulizer twice a day, levothyroxine sodium 150 mcg once a day, lisinopril 20 mg daily, magnesium oxide 400 mg 3 times a day, melatonin 3 mg at bedtime, metformin 1000 mg p.o. b.i.d., orphenadrine 100 mg twice a day, Protonix 40 mg once a day, sitagliptin (Januvia) 100 mg once a day, ziprasidone (Geodon) ____ mg once a day and trazodone ____ mg p.o. daily. FINAL DISCHARGE DIAGNOSES: 1. Abdominal pain, nonspecific, resolved. 2. Nonalcoholic steatohepatitis, worse in the caudate lobe. Other medical problems include type 2 diabetes mellitus, hypertension, hypothyroidism, borderline personality and schizophrenia. ADDI ABREU MD DR: EDU/sundar JOB#: [id number] / [id number]
[2019-07-21] MEDS ORDERED: INSULIN LISPRO 300 UNITS/3 ML VIAL. SQ ONE (18:00)
--- NOTE | 2019-07-21 18:07 | NUR ---
Discharge Note: [facility] Discharge instructions and discharge home medications reviewed with Other facility and a copy given. All questions have been answered and understanding verbalized. The following instructions and handouts were given: ABD Pain Discontinued lines and drains: Peripheral IV intact. Patient discharged to [facility] Wheelchair
== END 2019-07-21 18:08 | DRG 392 ==
LOC: ER 22:25 → 5 SOUTH 07-18 02:20
PROVIDERS: ADMIT Family Medicine; ATTEND Family Medicine
DX: R10.9 Unspecified abdominal pain (principal); E87.2 Acidosis; Z68.41 Body mass index [BMI] 40.0-44.9, adult; K75.81 Nonalcoholic steatohepatitis (NASH); D72.829 Elevated white blood cell count, unspecified; E03.9 Hypothyroidism, unspecified; F20.9 Schizophrenia, unspecified; E11.65 Type 2 diabetes mellitus with hyperglycemia; E83.42 Hypomagnesemia; I10 Essential (primary) hypertension; F60.3 Borderline personality disorder; E78.5 Hyperlipidemia, unspecified; F31.9 Bipolar disorder, unspecified; F43.10 Post-traumatic stress disorder, unspecified; K57.90 Diverticulosis of intestine, part unspecified, without perforation or abscess without bleeding; Z90.49 Acquired absence of other specified parts of digestive tract; Z98.891 History of uterine scar from previous surgery; Z98.51 Tubal ligation status; Z88.0 Allergy status to penicillin; Z88.8 Allergy status to other drugs, medicaments and biological substances; E66.9 Obesity, unspecified
CPT/HCPCS: 36415; 71260; 74177; 74183; 80053; 80164; 81001; 82553; 82962; 83605; 83690; 83735; 84484; 85025; 85610; 85730; 86705; 86709; 86803; 87040; 87045; 87340; 93005; 94640; 94760; 96361; 96365; 96368; 96372; 96375; A9575; J1815; J1885; J1956; J2405; J3010; J3475; J3490; J7030; J7620; 99285-25; G0378